=== PATIENT | female | born 1945 | race Caucasian/White ===

== ENCOUNTER 2020-02-07 10:41 | Outpatient (CLI) | payer MEDICARE, SELFPAY ==
--- NOTE | ~2020-02-07 | MM_ITS ---
EXAMINATION: MM screening vale BI w rhea HISTORY: Screening mammogram TECHNIQUE: Craniocaudal and mediolateral oblique 3-D tomosynthesis images were obtained and synthetic 2-D images were generated. CAD analysis was submitted and interpreted. COMPARISON: 01/22/2019, 12/30/2013 bilateral digital screening mammogram examinations BREAST PARENCHYMAL COMPOSITION: There are scattered areas of fibroglandular density. FINDINGS: Occasional bilateral benign calcifications. There is no evidence of suspicious mass, calcif ication, or architectural distortion to suggest malignancy in either breast. There has been no suspic ious interval change. IMPRESSION: 1. No mammographic evidence of malignancy. 2. Recommend routine screening mammography in one year. BI-RADS Category 1: Negative Reviewed, dictated and finalized at location A. CONSULTANT
== END 2020-02-07 10:42 | disposition home or self-care (01) ==
LOC: ANHIMG 10:45
PROVIDERS: PCP Family Medicine; Visit Provider Physician Assistant Medical
DX: Z12.31 Encounter for screening mammogram for malignant neoplasm of breast (principal)
CPT/HCPCS: 77063; 77067

== ENCOUNTER 2021-02-15 15:07 | Outpatient (CLI) | payer MEDICARE, SELFPAY ==
--- NOTE | ~2021-02-15 | MM_ITS ---
EXAMINATION: MM screening vale BI w rhea HISTORY: Screening TECHNIQUE: Craniocaudal and mediolateral oblique 3-D tomosynthesis images were obtained and synthetic 2-D images were generated. CAD analysis was submitted and interpreted. COMPARISON: Comparison to multiple prior studies sequentially, with oldest reviewed study dated 09/25. BREAST PARENCHYMAL COMPOSITION: Breast composed of scattered areas of fibroglandular density. FINDINGS: There is no evidence of suspicious mass, calcification, or architectural distortion to sugg est malignancy in either breast. There has been no suspicious interval change. IMPRESSION: 1. No mammographic evidence of malignancy. 2. Recommend routine screening mammography in one year. BI-RADS Category 1: Negative Reviewed, dictated and finalized at location A. APPLICATIONS ANALYST
== END 2021-02-15 15:08 | disposition home or self-care (01) ==
LOC: ANHIMG 15:10
PROVIDERS: PCP Family Medicine; Visit Provider Physician Assistant Medical
DX: Z12.31 Encounter for screening mammogram for malignant neoplasm of breast (principal)
CPT/HCPCS: 77063; 77067

== ENCOUNTER 2022-04-05 13:36 | Outpatient (CLI) | payer OTHER, SELFPAY ==
--- NOTE | ~2022-04-05 | XR_ITS ---
EXAMINATION: XR chest 2V DATE: 04/05/2022 14:45 INDICATION: Dyspnea on exertion TECHNIQUE: PA and lateral views of the chest were obtained. COMPARISON: Chest radiograph dated 05/23/[address] dated 08/19/2016 FINDINGS: Chronic linear opacities at the lateral left lower lung zone consistent with atelectasis/scarring. No new airspace opacities, pulmonary edema, pleural effusion or pneumothorax. The cardiomediastinal darvin houette is normal. Thoracic dextrocurvature with severe spondylosis. IMPRESSION: 1. Chronic linear atelectasis/scarring at the left lower lung zone. No acute cardiopulmonary disease. Reviewed, dictated and finalized at location B. OM STOP ATTACHER IMPRESSION: 1. Chronic linear atelectasis/scarring at the left lower lung zone. No acute ca rdiopulmonary disease.
--- NOTE | 2022-04-05 13:42 | ECHO_ITS ---
Patient Info Name: Jackeline Connolly Age: 77 years : 1945 Gender: Female Ht: 64 in Wt: 230 lbs BSA: 2.22 m2 HR: 61 bpm BP: 144 / 83 mmHg Technical Quality: Fair Exam Date: 04/05/2022 1:44 PM Exam Location: [facility] Patient Status: Outpatient Admit Date: 04/05/2022 Staff Ordering Physician: Henrry Upton PA-C Medical Scribe: Neyda Avendano RDCS Attending Provider: Henrry Upton PA-C Referring Physician: Won LEVY; Exam Type: CA echo doppler color flow Study Info Indications R06.02 - Shortness of breath Complete two-dimensional, color flow and Doppler transthoracic echocardiogram is performed. Summary 1. Complete two-dimensional, color flow and Doppler transthoracic echocardiogram is performed. 2. Left ventricular chamber dimension is normal. 3. Left ventricular systolic function is normal, estimated at 60-65%. 4. There is mild concentric increased left ventricular wall thickness. 5. The left ventricular diastolic function is grade I diastolic dysfunction. 6. E/e' 16 is elevated. 7. Global longitudinal strain is abnormal at -14.2%. 8. Left atrial chamber dimension is mildly enlarged. 9. There is mild aortic valve sclerosis. 10. The mitral valve has moderately calcified annulus. 11. No pulmonary hypertension, estimated pulmonary arterial systolic pressure is 18 mmHg. Left Ventricle E/e' 16 is elevated. Global longitudinal strain is abnormal at -14.2%. Left ventricular chamber dimension is normal. Left ventricular systolic function is normal, estimated at 60-65%. There is mild concentric increased left ventricular wall thickness. The left ventricular diastolic function is grade I diastolic dysfunction. Right Ventricle Right ventricular chamber dimension is normal. Right ventricular systolic function is normal. Left Atria Left atrial chamber dimension is mildly enlarged. Right Atria Right atrial chamber dimension is normal. Aortic Valve The aortic valve is trileaflet. There is mild aortic valve sclerosis. There is no aortic valve stenosis. There is no aortic valve regurgitation. Pulmonic Valve There is no pulmonic regurgitation. Mitral Valve The mitral valve has moderately calcified annulus. There is no mitral valve stenosis. There is no mitral valve regurgitation. Tricuspid Valve There is no tricuspid valve regurgitation. No pulmonary hypertension, estimated pulmonary arterial systolic pressure is 18 mmHg. Pericardium/Pleural There is no pericardial effusion. Inferior Vena Cava Normal inferior vena cava with >50% collapse upon inspiration consistent with normal right atrial pressure, 5 mmHg. Aorta The aortic root size at the sinus of Valsalva is normal. Left Ventricular Outflow Tract Name Value Normal LVOT 2D LVOT Diameter 2.0 cm LVOT Doppler LVOT Peak Gradient 3 mmHg LVOT Mean Gradient 2 mmHg LVOT VTI 18 cm LVOT VTI/AV VTI Ratio 0.8 LVOT Stroke Volume 55 ml LVOT CO
== END 2022-04-05 13:37 | disposition home or self-care (01) ==
PROVIDERS: PCP Family Medicine; Visit Provider Physician Assistant
DX: R06.02 Shortness of breath (principal)
CPT/HCPCS: 71046; 93306

== ENCOUNTER 2022-05-24 14:25 | Outpatient (CLI) | payer OTHER, SELFPAY ==
--- NOTE | ~2022-05-24 | MM_ITS ---
EXAMINATION: MM screening vale BI w rhea HISTORY: Screening mammogram TECHNIQUE: Craniocaudal and mediolateral oblique 3-D tomosynthesis images were obtained and synthetic 2-D images were generated. CAD analysis was submitted and interpreted. COMPARISON: , 02/07/2020, 01/20/2019 bilateral screening mammogram examinations BREAST PARENCHYMAL COMPOSITION: There are scattered areas of fibroglandular density. FINDINGS: There is no evidence of suspicious mass, calcification, or architectural distortion to sugg est malignancy in either breast. There has been no suspicious interval change. IMPRESSION: 1. No mammographic evidence of malignancy. 2. Recommend routine screening mammography in one year. BI-RADS Category 1: Negative Reviewed, dictated and finalized at location A.
== END 2022-05-24 14:26 | disposition home or self-care (01) ==
LOC: ANHIMG 14:29
PROVIDERS: PCP Family Medicine; Visit Provider Physician Assistant
DX: Z12.31 Encounter for screening mammogram for malignant neoplasm of breast (principal)
CPT/HCPCS: 77063; 77067

== ENCOUNTER 2022-06-17 21:27 | Emergency (ER) | payer OTHER, SELFPAY ==
--- NOTE | ~2022-06-17 | CT_ITS ---
EXAMINATION: CT abdomen pelvis wo con DATE: 06/17/2022 22:12 INDICATION: L flank pain TECHNIQUE: Computed tomography (CT) of the abdomen and pelvis was performed without intravenous contr ast. Automated exposure control and iterative reconstruction technique were employed. The dose-length product was 1351.40 mGy-cm. COMPARISON: 11/14/2006. FINDINGS: Lower thorax: Mitral and coronary artery calcification. Bibasilar scar/atelectasis. Liver: Normal. Biliary/Gallbladder: Cholelithiasis. No bile duct dilation. Pancreas: Mild atrophy. Spleen: Normal. Adrenals:Bilateral adrenal adenomas. Kidneys: Bilateral nonobstructing calculi. Small right midpole hemorrhagic or proteinaceous cyst. GI tract: Small hiatal hernia. No small or large bowel dilation. Appendix not visualized Diverticulos is without diverticulitis. Mesentery/Peritoneum: No ascites, mass, or free air. Retroperitoneum: No mass. Atherosclerotic abdominal aortic and/or arterial calcifications. Pelvis: Pelvic organs are within normal limits. Soft Tissues: Small uncomplicated fat-containing umbilical hernia. Bones: No acute osseous finding. IMPRESSION: No acute abdominopelvic process detected. Reviewed, dictated and finalized at location K.
[2022-06-17 21:29] VITALS: BP 153/79; PULSE 71; RESP 16; TEMP 36.5; O2SAT 100
[2022-06-17 21:48] LABS: Basophils Percent Auto 0.5 % (0.2-1.2); Eosinophils Absolute Auto 0.2 K/mm3 (0-0.3); Eosinophils Percent Auto 2.7 % (0-4.4); Hematocrit 40.3 % (37.0-47.0); Hemoglobin 13.4 g/dL (12.0-15.0); Immature Granulocyte Absolute 0.08 K/mm3 (0.00-0.031); Immature Granulocyte Percent A 0.9 % (0-0.5); Lymphocytes Absolute Auto 2.11 K/mm3 (0.9-3.2); Lymphocytes Percent Auto 23.9 % (18.3-44.2); Mean Corpuscular HGB Conc 33.3 g/dl (32-36); Mean Corpuscular Hemoglobin 29.6 pg (26-34); Mean Corpuscular Volume 89.2 fl (80-100); Mean Platelet Volume 9.5 fl (7.4-10.4); Monocytes Absolute Auto 0.4 K/mm3 (0.1-0.6); Monocytes Percent Auto 4.5 % (2.6-8.5); Neutrophils Percent Auto 67.5 % (45.5-73.1); Platelet Count Result 261 k/mm3 (150-375); Red Blood Count 4.52 M/mm3 (4.2-5.4); Red Cell Distribution Width 13.3 % (11.5-14.5); White Blood Count 8.8 K/mm3 (4.5-10.0)
[2022-06-17 22:00] LABS: Alanine Aminotransferase 26 U/L (6-35); Albumin Level 4.6 g/dL (3.5-5.1); Alkaline Phosphatase 86 U/L (38-126); Anion Gap 8 mmol/L (8-16); Aspartate Amino Transferase 31 U/L (14-36); Bilirubin,Total 0.5 mg/dL (0.2-1.3); Blood Urea Nitrogen 16 mg/dL (7-17); Calcium 9.6 mg/dL (8.4-10.2); Carbon Dioxide 25 mmol/L (22-30); Chloride 102 mmol/L (98-107); Estimated CRCL calculation 78 ml/min; Estimated Glomerular Filt Rate > 60; Glucose 135 mg/dL (65-110); Potassium 3.9 mmol/L (3.4-5.0); Sodium 135 mmol/L (137-145)
[2022-06-17 22:54] VITALS: BP 185/71; PULSE 88; RESP 20; TEMP 37.1; O2SAT 95
[2022-06-17 23:05] LABS: Appearance Urine Clear (Clear); Bilirubin Urine Negative (Negative); Blood Urine Negative (Negative); Color Urine Yellow (Yellow); Glucose Urine UA Negative (Negative); Ketones Urine Negative (Negative); Leukocyte Esterase Ur Negative LEU/UL (Negative); Nitrate Urine Negative (Negative); Protein Urine Negative (Negative); Specific Grav Ur 1.016 (1.001-1.035); Urobilinogen Urine 0.2 mg/dL (<2.0)
[2022-06-17 23:08] LABS: Add Urine Microscopic? NO
[2022-06-17] MEDS: ONDANSETRON INJ 4 MG/2 ML VIAL IV PUSH (23:20)
[2022-06-17] MEDS: MORPHINE SULFATE (*CRX) 4 MG/ML INJ IV PUSH (23:22)
[2022-06-17] MEDS: FAMOTIDINE 20 MG/2 ML VIAL IV PUSH (23:25)
[2022-06-17 23:54] VITALS: O2SAT 95
--- NOTE | 2022-06-17 23:54 | PC.NURSE ---
Patient began to sleep/nod off and her SPO2 was dropping to 88/89%. Nasal cannula was applied at 4L/min. Patient's SPO2 is now at 95%. Notified Dr. Gudino
[2022-06-18 00:01] VITALS: BP 158/67; PULSE 73; RESP 16; O2SAT 95
[2022-06-18 00:48] VITALS: BP 169/74; PULSE 74; RESP 24; O2SAT 98
--- NOTE | 2022-06-18 01:11 | PC.NURSE ---
Patient used to call light and advised that her pain and nausea was back. Notified Dr. Gudino.
[2022-06-18] MEDS: METOCLOPRAMIDE HCL INJ 10 MG/2 ML VIAL IV PUSH (01:15)
--- NOTE | 2022-06-18 01:56 | ED.NAVMDI ---
HPI - Nausea/Vomiting/Diarrhea General Chief complaint: Nausea/Vomiting/Diarrhea Stated complaint: flank pain/n/v/ Time Seen by Provider: 06/17/22 22:48 History of Present Illness HPI Narrative: After eating dinner today patient started having some bad pain to the left flank, with nausea and vomiting. No focal numbness or weakness to the legs, no personal family history of aneurysms or dissections, no chest pain or abdominal pain. No dysuria. No history of kidney stones Related Data Home Medications Medication Instructions Recorded Confirmed aspirin 81 mg tablet,delayed 81 mg PO DAILY 01/27/19 04/10/22 release cholecalciferol (vitamin D3) 25 1,000 unit PO DAILY 01/27/19 04/10/22 mcg (1,000 unit) capsule omeprazole magnesium 20 mg 20 mg PO DAILY 01/27/19 04/10/22 tablet,delayed release (Prilosec OTC) vit 1 cap PO DAILY 06/30/19 04/10/22 C,E,zinc,Zu-hyaiy-4-lutein-zeaxanthin 250 mg-2.5 mg-0.5 mg capsule hydrocodone 5 mg-acetaminophen 325 1 tablet PO Q8H PRN 07/19/20 04/10/22 mg tablet Allergies Allergy/AdvReac Type Severity Reaction Status Date / Time amlodipine Allergy Unknown lip Verified 06/17/22 21:28 swelling lisinopril Allergy Unknown cough Verified 06/17/22 21:28 spironolactone Allergy Unknown Lightheaded Verified 06/17/22 21:28 ness fluticasone [From Flonase] AdvReac Dry Mouth Verified 06/17/22 21:28 Review of Systems Review of Systems: CONST: No fever. HEENT: No sore throat C/V: No chest pain RESP: No cough GI: Reports abdominal pain, nausea, vomiting : No dysuria. M/S: Left low back pain SKIN: No rash. NEURO: [No headache or focal numbness or weakness] PSYCH: [No depression] [facility] Past Medical History Medical History Cerumen impaction Epistaxis Eustachian tube dysfunction Hepatitis C antibody test negative (~12/07/16) Impacted cerumen of left ear Left facial numbness Surgical History Surgical History Hx of colonoscopy hx polyps. 2016 normal/ repeat in5-7 years Family History Family History Sibling Hypertension Family history of elevated blood lipids Diabetes mellitus Mother Family history of cardiovascular disease Cerebrovascular accident Family history of malignant neoplasm of breast Father Acute myocardial infarction Family history of cardiovascular disease Family history of Parkinson's disease Social History Social History Smoking status: Never smoker Alcohol intake: current Substance use type: does not use Lack of Transportation: No Lack of Food: Never True Current Housing: I Have Housing Concerned About Future Housing: No Difficulty Paying Gas/Electric Bills: No Difficulty Paying for Meds: No Currently Unemployed: No Education: High School Diploma/GED Difficulty w/ Childcare or Family Care: No Gender identity (if verbalized by the patient): Female Exam Narrative: EXAMINATION OF ORGAN SYSTEMS/BODY AREAS: Constitutional: Vital signs per nursing GENERAL:[No acute distress, non-toxic appearing.] HEAD: Normal with no signs of head trauma. EYES: EOMI, conjunctiva normal ENT: Hearing grossly intact LUNGS: Nonlabored breathing. HEART: [Regular rate and rhythm] ABD: [Soft], [tender to palpation] to left lower back EXT: Normal range of motion, normal radial and DP pulses SKIN: [No rashes or lesions.] NEURO: [Alert and oriented x 3. No gross focal sensory or strength deficits.] PSYCH: Normal affect Course Vital Signs Vital signs: Vital Signs Temperature 97.7 F 06/17/22 21:29 Pulse Rate 71 06/17/22 21:29 Respiratory Rate 16 06/17/22 21:29 Blood Pressure 153/79 H 06/17/22 21:29 Pulse Oximetry 100 06/17/22 21:29 Oxygen Delivery Room Air 06/17/22 21:29 Temperature 97.6 F
[2022-06-18 02:11] VITALS: BP 166/75; PULSE 66; RESP 21; O2SAT 99
[2022-06-18 02:37] VITALS: BP 161/75; PULSE 99; RESP 14; TEMP 36.4; O2SAT 90
== END 2022-06-18 02:54 | disposition home or self-care (01) ==
PROVIDERS: Family Medicine; Emergency Provider Emergency Medicine; PCP Family Medicine
DX: M54.50 Low back pain, unspecified (principal); R11.2 Nausea with vomiting, unspecified
CPT/HCPCS: 36415; 74176; 80053; 81003; 85025; 96374; 96375; 99284; J2270; J2405; J2765

== ENCOUNTER 2022-08-06 14:46 | Outpatient (CLI) | payer OTHER, SELFPAY ==
[2022-08-06 16:05] LABS: Kit Draw Collected
== END 2022-08-06 14:47 | disposition home or self-care (01) ==
LOC: ANHGOSHLAB 14:47
PROVIDERS: PCP Family Medicine; Visit Provider Family Medicine
DX: E03.9 Hypothyroidism, unspecified (principal); E78.2 Mixed hyperlipidemia
CPT/HCPCS: 36415

== ENCOUNTER 2022-10-29 14:08 | Outpatient (CLI) | payer OTHER, SELFPAY ==
[2022-10-29 20:09] LABS: Thyroid Stimulating Hormone 0.365 uIU/mL (0.465-4.680)
== END 2022-10-29 14:09 | disposition home or self-care (01) ==
LOC: ANHGOSHLAB 14:09
PROVIDERS: PCP Family Medicine; Visit Provider Family Medicine
DX: E03.9 Hypothyroidism, unspecified (principal)
CPT/HCPCS: 36415; 84443

== ENCOUNTER → 2023-03-06 12:58 | Outpatient (CLI) | payer OTHER, SELFPAY ==
--- NOTE | ~2023-03-06 | MR_ITS ---
EXAMINATION: MR lumbar spine wo con DATE: 03/06/2023 13:37 INDICATION: Right-sided low back pain. TECHNIQUE: Magnetic resonance imaging (MRI) of the lumbar spine was performed without intravenous con trast. Sequences included sagittal T2-weighted FSE, sagittal T2-weighted FS FSE, sagittal T1-weighted FSE, and axial T2-weighted FSE. COMPARISON: Lumbar spine MRI 12/25/2016 FINDINGS: There is 37 degrees levoscoliosis of thoracolumbar spine. Vertebral body heights are normal . There is severely decreased disc height from T12-L1 through L5-S1 with interbody fusion at L1-L2 an d L2-L3. The distal spinal cord signal intensity is normal. The conus medullaris is at L1. The follow ing disc levels are specifically discussed: T12-L1: The disc is bulging and has an annular fissure. There is mild bilateral facet joint osteoarth ritis. There is mild bilateral neural foraminal stenosis. There is mild central canal stenosis. L1-L2: There is moderate bilateral facet joint osteoarthritis. There is moderate right and mild left neural foraminal stenosis. There is mild central canal stenosis. L2-L3: 07 There is severe bilateral facet joint osteoarthritis. There is moderate right and mild left neural foraminal stenosis. There is mild central canal stenosis. L3-L4: The disc is bulging and has an annular fissure. There is moderate bilateral facet joint osteoa rthritis. There is mild right and severe left neural foraminal stenosis. There is mild central canal stenosis. There is severe stenosis of left lateral recess. L4-L5: The disc is bulging and has an annular fissure. There is severe bilateral facet joint osteoart hritis. There is mild right and moderate left neural foraminal stenosis. There is mild central canal stenosis. L5-S1: The disc is bulging and has an annular fissure. There is severe bilateral facet joint osteoart hritis. There is moderate bilateral neural foraminal stenosis. There is mild central canal stenosis. IMPRESSION: 1. Severe lumbar spondylosis, stable from 12/25/2016. 2. Thoracolumbar levoscoliosis. Reviewed, dictated and finalized at location A. DENTIAL PLUMBER
== END ==
PROVIDERS: PCP Family Medicine; Visit Provider Nurse Practitioner Family
DX: M47.26 Other spondylosis with radiculopathy, lumbar region (principal)
CPT/HCPCS: 72148

== ENCOUNTER 2023-03-28 09:25 | Outpatient (CLI) | payer OTHER, SELFPAY ==
[2023-03-28 12:18] LABS: Alanine Aminotransferase 29 U/L (6-35); Alkaline Phosphatase 71 U/L (38-126); Anion Gap 6 mmol/L (8-16); Aspartate Amino Transferase 74 U/L (14-36); Bilirubin,Total 0.6 mg/dL (0.2-1.3); Blood Urea Nitrogen 18 mg/dL (7-17); Calcium 9.3 mg/dL (8.4-10.2); Carbon Dioxide 30 mmol/L (22-30); Chloride 105 mmol/L (98-107); Cholesterol 188 mg/dL (0-200); Estimated Glomerular Filt Rate > 60; Glucose 89 mg/dL (65-110); HDL Direct 50 mg/dL; Sodium 141 mmol/L (137-145); Triglycerides 176 mg/dL (<150)
[2023-03-28 12:23] LABS: Hemoglobin A1C 5.9 % (<5.7)
[2023-03-28 12:28] LABS: LDL Cholesterol Direct 103 mg/dL
== END 2023-03-28 09:26 | disposition home or self-care (01) ==
PROVIDERS: PCP Family Medicine; Visit Provider Family Medicine
DX: E03.9 Hypothyroidism, unspecified (principal); R73.03 Prediabetes; E78.2 Mixed hyperlipidemia
CPT/HCPCS: 36415; 80053; 80061; 83036; 84443

== ENCOUNTER 2023-06-03 15:12 | Outpatient (CLI) | payer OTHER, SELFPAY ==
[2023-06-03 19:25] LABS: Alanine Aminotransferase 23 U/L (6-35); Albumin Level 4.1 g/dL (3.5-5.1); Alkaline Phosphatase 77 U/L (38-126); Anion Gap 5 mmol/L (4-12); Aspartate Amino Transferase 46 U/L (14-36); Bilirubin,Total 0.7 mg/dL (0.2-1.3); Blood Urea Nitrogen 15 mg/dL (7-17); Calcium 10.1 mg/dL (8.4-10.2); Carbon Dioxide 30 mmol/L (22-30); Chloride 101 mmol/L (98-107); Estimated Glomerular Filt Rate > 60; Glucose 109 mg/dL (65-110); Potassium 3.9 mmol/L (3.4-5.0); Sodium 136 mmol/L (137-145)
[2023-06-03 20:00] LABS: Hepatitis B Surface Antigen Negative (Negative)
[2023-06-03 20:07] LABS: HAV RESULT Negative (Negative); Hepatitis B Core IgM Result Negative (Negative)
[2023-06-03 20:18] LABS: Hepatitis C Virus Antibody Negative (Negative)
== END 2023-06-03 15:13 | disposition home or self-care (01) ==
LOC: ANHGOSHLAB 15:14
PROVIDERS: PCP Family Medicine; Visit Provider Physician Assistant
DX: R53.83 Other fatigue (principal); R74.8 Abnormal levels of other serum enzymes; I10 Essential (primary) hypertension
CPT/HCPCS: 36415; 80048; 80074; 80076; 82728

== ENCOUNTER 2023-06-27 10:10 | Outpatient (CLI) | payer OTHER, SELFPAY ==
--- NOTE | ~2023-06-27 | MM_ITS ---
EXAMINATION: MM screening vale BI w rhea HISTORY: Screening TECHNIQUE: Craniocaudal and mediolateral oblique 3-D tomosynthesis images were obtained and synthetic 2-D images were generated. CAD analysis was submitted and interpreted. COMPARISON: Comparison to multiple prior studies sequentially, with oldest reviewed study dated 01/10. BREAST PARENCHYMAL COMPOSITION: Not dense: There are scattered areas of fibroglandular density. FINDINGS: There is no evidence of suspicious mass, calcification, or architectural distortion to sugg est malignancy in either breast. There has been no suspicious interval change. IMPRESSION: 1. No mammographic evidence of malignancy. 2. Recommend routine screening mammography in one year. BI-RADS Category 1: Negative Reviewed, dictated and finalized at location B.
--- NOTE | ~2023-06-27 | DEXA_ITS ---
Bone Density Report Name: LUKE FRANKLIN Age: 78 Sex: Female Ethnicity: White Date of : 1945 Indication: postmenopausal; screening for osteoporosis; height loss; inflammatory bowel disease; history of glucocorticoids; cancer; Referring Provider: DIMAS KIRKLAND Study: Bone densitometry was performed. Exam Date: June 27, 2023 Accession number: [id number] Bone Density: Region BMD T-score Z-score Classification AP Spine(L2, L3, L4) 1.234 1.4 4.1 Normal Femoral Neck (Left) 0.747 -0.9 1.3 Normal Total Hip (Left) 1.048 0.9 2.9 Normal Femoral Neck (Right) 0.785 -0.6 1.7 Normal Total Hip (Right) 0.973 0.3 2.3 Normal Total Hip Mean 1.011 0.6 2.6 Normal World Health Organization criteria for BMD impression classify patients as: Normal (T-score at or above -1.0), Osteopenia (T-score between -1.0 and -2.5), or Osteoporosis (T-score at or below -2.5). 10-year Fracture Risk: FRAX not reported because: All T-scores for Spine Total, Hip Total, Femoral Neck at or above -1.0 Previous Exams: Region Exam Age BMD T-score BMD Change BMD Change Date g/cm2 vs Baseline vs Previous AP Spine (L2-L4) 06/27/2023 78 1.234 1.4 -0.055 (-4.2%) -0.055 (-4.2%) 01/22/2019 73 1.288 1.9 Total Hip(Left) 06/27/2023 78 1.048 0.9 -0.040 (-3.6%) -0.040 (-3.6%) 01/22/2019 73 1.087 1.2 Total Hip(Right) 06/27/2023 78 0.973 0.3 -0.063 (-6.1%) -0.063 (-6.1%) 01/22/2019 73 1.036 0.8 *Denotes significance at 95% confidence level, LSC for AP Spine = 0.022 g/cm2, LSC for Total Hip = 0.027 g/cm2 Clinical Information Provided by Patient: Has taken Glucocorticoids Has used the following medications: MULTI Has the following medical conditions: Cancer, Inflammatory bowel diseases Patient maximum height was 66 Menopause Age: 49 No regular weight bearing exercise Drinks caffeinated beverages Onset of menses at age 14 Number of children 3 Impression: The patient has normal bone mass. The patient has risk factors, including: history of glucocorticoid therapy. The BMD for the AP Spine (L2-L4) decreased, changing by -4.2% since the last DXA exam. The BMD for the Total Hip(Left) decreased, changing by -3.6% since the last DXA exam. The BMD for the Total Hip(Right) decreased, changing by -6.1% since the last DXA exam. Discussion: BONE DENSITY IS ABOVE THE MINIMUM DESIRABLE LEVEL AT ALL SKELETAL SITES TESTED. This patient?s bone mineral density is above the minimum desirable level (T-score -1.0 or better) at all sites measured. The patient should follow a healthful lifestyle (good nutrition with adequate calcium and vitamin D, and appropriate weight-bearing exercise). Follow-Up: Consider repeating this study in 3 to 4 years to reassess this patient's status, or sooner if there is some new clinical indication. Reported by: VIANEY on 06/27/2023 11:05:00 AM. Reviewed, dictated and finalized at location AFrancesca [facility] HOSPITALFernanda
== END 2023-06-27 10:11 | disposition home or self-care (01) ==
LOC: ANHIMG 10:14
PROVIDERS: PCP Family Medicine; Visit Provider Family Medicine
DX: Z12.31 Encounter for screening mammogram for malignant neoplasm of breast (principal); Z78.0 Asymptomatic menopausal state
CPT/HCPCS: 77063; 77067; 77080

== ENCOUNTER 2023-12-11 09:41 | Outpatient (CLI) | payer OTHER, SELFPAY ==
[2023-12-11 19:06] LABS: Cholesterol 192 mg/dL (0-200); HDL Direct 41 mg/dL; Triglycerides 238 mg/dL (<150)
[2023-12-11 19:17] LABS: LDL Cholesterol Direct 91 mg/dL
== END 2023-12-11 09:42 | disposition home or self-care (01) ==
PROVIDERS: PCP Family Medicine; Visit Provider Family Medicine
DX: R73.03 Prediabetes (principal); E03.9 Hypothyroidism, unspecified
CPT/HCPCS: 36415; 80061; 83036

== ENCOUNTER 2024-06-09 14:21 | Outpatient (CLI) | payer OTHER, SELFPAY ==
--- NOTE | ~2024-06-09 | US_ITS ---
EXAMINATION: US pelvic complete INDICATION: Lower abdomen pain Comparison:CT dated 06/17/2022 TECHNIQUE: Multiple endovaginal sonographic images of the pelvis performed. FINDINGS: The uterus measures 6.3 x 4.7 x 4 cm. There are echogenic foci within the myometrium, consi stent with calcifications. The endometrium is not clearly delineated for measurement. The ovaries are not visualized, likely atrophic. There is no free fluid in the pelvis. There are no abnormal masses seen on either side. IMPRESSION: 1. Unremarkable limited pelvic ultrasound. Endometrium not clearly visualized. Reviewed, dictated and finalized at location A.
== END 2024-06-09 14:22 | disposition home or self-care (01) ==
LOC: GOSHIMG 14:22
PROVIDERS: PCP Family Medicine; Visit Provider Nurse Practitioner Family
DX: R10.30 Lower abdominal pain, unspecified (principal)
CPT/HCPCS: 76856

== ENCOUNTER 2024-07-14 14:15 | Emergency (ER) | payer OTHER, SELFPAY ==
--- NOTE | ~2024-07-14 | XR_ITS ---
XR ankle RT min 3V Ordering provider: Edda Bartlett APRN History: . Fell today, pain lateral Rt ankle, Rt knee . Comparison: August 22, 2003 FINDINGS: BONES: Nondisplaced fracture of the lateral malleolus is noted. Fracture of the medial malleolus is a lso seen. Displaced fragment is seen in the medial malleolus area. JOINT SPACES: Normal. SOFT TISSUES: Soft tissue swelling over the medial malleolus is seen. Air is also seen in the subcuta neous tissues. Calcaneal spur. IMPRESSION: Bimalleolar fracture. Reviewed, dictated and finalized at location A. IMPRESSION: Bimalleolar fracture.
--- NOTE | ~2024-07-14 | XR_ITS ---
EXAMINATION: [id number] DATE: 07/14/2024 15:12 INDICATION: Right knee pain post fall TECHNIQUE: AP and crosstable lateral views of the right knee were obtained. COMPARISON: None. FINDINGS: Right total knee arthroplasty with patellar resurfacing which are in near-anatomic alignment. There i s increased lucency with thin corticated margins suggesting this is chronic posterior to the trochlea r flange of the femoral component. No fracture. Small right knee joint effusion without layering lipo hemarthrosis. Moderate sized enthesophyte at the patellar insertion of the distal quadriceps tendon. IMPRESSION: 1. Likely chronic increased lucency posterior to the trochlear flange of the femoral component of a r ight total knee arthroplasty which could be seen due to stress shielding or loosening. Recommend munir elation with any prior outside imaging. No acute osseous abnormality. 2. Small right knee joint effusion without layering lipohemarthrosis to suggest occult fracture. Reviewed, dictated and finalized at location A. IMPRESSION: 1. Likely chronic increased lucency posterior to the trochlear flange of the fe moral component of a right total knee arthroplasty which could be seen due to s tress shielding or loosening. Recommend correlation with any prior outside imag ing. No acute osseous abnormality. 2. Small right knee joint effusion without layering lipohemarthrosis to suggest occult fracture.
[2024-07-14 14:35] VITALS: BP 162/82; PULSE 84; RESP 16; TEMP 37; O2SAT 96
--- NOTE | 2024-07-14 14:43 | ED.LOWEXIN ---
HPI - Extremity Injury (Lower) General Chief Complaint: Extremity Injury, Lower Stated Complaint: R KNEE/R ANKLE INJURY Source: patient Mode of arrival: wheelchair Limitations: no limitations History of Present Illness HPI Narrative: Patient is an 79-year-old female who presents to the clinic with right ankle pain. She was getting into her car in a parking lot, lost her balance and fell, landing on her right ankle and right knee. She states that she is not able to bear weight or move her ankle. 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 Denies any numbness or tingling. Related Data Home Medications ?Medication ?Instructions ?Recorded ?Confirmed ?Last Taken ?Type aspirin 81 mg tablet,delayed 81 mg PO DAILY 01/27/19 07/14/24 Unknown History release cholecalciferol (vitamin D3) 25 1,000 unit PO DAILY 01/27/19 07/14/24 Unknown History mcg (1,000 unit) capsule hydrocodone 5 mg-acetaminophen 325 1 tablet PO Q8H 07/19/20 07/14/24 Unknown History mg tablet omeprazole magnesium 20 mg 20 mg PO .QOD 01/16/23 07/14/24 Unknown History tablet,delayed release (Prilosec OTC) vitamins A,C,Q-zgtg-vwygpr 4,296 1 cap PO DAILY 01/16/23 07/14/24 Unknown History mcg-226 mg-90 mg capsule (PreserVision AREDS) Allergies Allergy/AdvReac Type Severity Reaction Status Date / Time amlodipine Allergy Unknown lip Verified 07/14/24 14:16 swelling lisinopril Allergy Unknown cough Verified 07/14/24 14:16 spironolactone Allergy Unknown Lightheaded Verified 07/14/24 14:16 ness fluticasone (From Flonase) AdvReac Dry Mouth Verified 07/14/24 14:16 Review of Systems Review of Systems: CONSTITUTIONAL: Denies body aches, fever, chillsEYES: Denies visual changes ENT: Denies rhinorrhea, congestion CARDIOVASCULAR: Denies chest pain, palpitations, or edema. RESPIRATORY: Denies cough or dyspnea. SKIN: Denies rash, itching, or wounds. MUSCULOSKELETAL: reports right ankle and right knee pain. NEUROLOGIC: Denies headache, numbness, tingling, or weakness. All systems reviewed & are unremarkable except as noted in HPI and below PMFSH Past Medical History Medical History Immunization due Sensation of fullness in left ear Right-sided epistaxis Impacted cerumen of left ear Knee pain Fatigue Epistaxis Cerumen impaction Impacted cerumen of left ear Eustachian tube dysfunction Hepatitis C antibody test negative (~12/07/16) Left facial numbness Surgical History Surgical History Hx of colonoscopy hx polyps. 2016 normal/ repeat in5-7 years Family History Family History Sibling Hypertension Family history of elevated blood lipids Diabetes mellitus Mother Family history of cardiovascular disease Cerebrovascular accident Family history of malignant neoplasm of breast Father Acute myocardial infarction Family history of cardiovascular disease Family history of Parkinson's disease Social History Social History Smoking status: Never smoker Alcohol intake: current Drinks per week: 2 Substance use: never Substance use type: does not use Do You Feel Safe in your Home?: Yes Lack of Transportation: No Lack of Food: Never True Current Housing: I Have Housing Concerned About Future Housing: No Difficulty Paying Gas/Electric Bills: No Difficulty Paying for Meds: No Currently Unemployed: No Education: High School Diploma/GED Difficulty w/ Childcare or Family Care: No Gender identity (if verbalized by the patient): Female Comments At time of signature, I have reviewed and agree with nursing past medical, surgical, social and family history unless otherwise noted. Please see nursing chart for further information. There is no relevant family history pertinent to the presenting complaint. Exam Narrative: MUSCULOSKELETAL EXAM GENERAL: Well-appearing, well-nourished, and in no acute distress. HEAD: Normocephalic, atraumatic. NECK: Supple. CHEST: Speaks in full sentences. No respiratory distress. HEART: Regular rate and rhythm. Normal and equal peripheral pulses. EXTREMITIES: Right ankle has decreased strength but normal sensation, decreased range of motion with flexion/extension and endorses pain with movement. Edema and ecchymosis noted, No point tenderness. Small puncture abrasion to right medial ankle, no skin tenting or obvious deformity; alignment normal, pulse palpable and equal bilaterally, skin warm, dry, pink. Capillary refill less than 3 seconds. Distal sensation intact. Right knee tender with palpation, decreased range of motion, but normal sensation. SKIN: Warm, dry, no rash. NEURO: Alert and oriented x3. PSYCH: Normal mood and affect Course Course Level of Care: Express Care Visit Vital Signs Vital signs: Vital Signs Temperature 98.6 F 07/14/24 14:35 Pulse Rate 84 07/14/24 14:35 Respiratory Rate 16 07/14/24 14:35 Blood Pressure 162/82 H 07/14/24 14:35 Pulse Oximetry 96 07/14/24 14:35 Temperature 98.6 F 07/14/24 14:35 Pulse Rate 84 07/14/24 14:35 Respiratory Rate 16 07/14/24 14:35 Blood Pressure 162/82 H 07/14/24 14:35 Pulse Oximetry 96 07/14/24 14:35 Reviewed. Transfer Transfered to: [facility] comments: Pt is agreeable to transfer. Requests transfer to [facility] via private vehicle. Risks of transportation reviewed with pt including injury, worsening of condition and . will be driving pt; Report called to hospital, spoke with MD Marshall, accepting physician. Pt is in stable condition at time of transfer. Advised to remain NPO and go directly to the hospital. MDM - Extremity Injury (Lower) MDM Narrative Medical decision making narrative: Discussed physical exam findings and xray. Bimalleolar fracture to right ankle. Advised to go to ER. Patient agreeable. Differential Diagnosis Differential diagnosis: Likely ankle sprain and strain, ankle fracture and other Imaging Data Radiologist's impression: ITS Impressions Ankle X-Ray 07/14/24 15:18 IMPRESSION: Bimalleolar fracture. Knee X-Ray 07/14/24 15:19 IMPRESSION: 1. Likely chronic increased lucency posterior to the trochlear flange of the femoral component of a right total knee arthroplasty which could be seen due to stress shielding or loosening. Recommend correlation with any prior outside imaging. No acute osseous abnormality. 2. Small right knee joint effusion without layering lipohemarthrosis to suggest occult fracture. Critical Care Time Critical Care Time Critical Care Time: No Discharge Plan Discharge Clinical Impression: Ankle fracture, right Qualifiers: Encounter type: initial encounter Fracture type: closed Qualified Code(s): S82.891A - Other fracture of right lower leg, initial encounter for closed fracture Patient Disposition: Acute Care Hospital Condition: Stable Patient Language: Kyrgyz Prescriptions: No Action aspirin 81 mg tablet,delayed release (DR/EC) 81 mg PO DAILY cholecalciferol (vitamin D3) 1,000 unit capsule 1,000 unit PO DAILY Prilosec OTC 20 mg tablet,delayed release (DR/EC) 20 mg PO .QOD PreserVision AREDS 4,296 mcg-226 mg-90 mg capsule 1 cap PO DAILY hydrocodone-acetaminophen 5-325 mg tablet 1 tablet PO Q8H trazodone 50 mg tablet See Rx Instructions .ROUTE .COMPLEX Qty: 90 3RF Dose Instruction: TAKE 1 TABLET BY MOUTH DAILY Rx Instructions: TAKE 1 TABLET BY MOUTH DAILY atorvastatin 40 mg tablet 40 mg PO DAILY Qty: 90 3RF levothyroxine 137 mcg tablet 137 mcg PO DAILY Qty: 90 1RF Rx Instructions: Take 1 tablet by mouth daily metoprolol succinate 50 mg tablet extended release 24 hr 50 mg PO DAILY Qty: 90 1RF Follow-up/Referrals: Andrew Medeiros MD [Physician] - Sharri Clay MD [Primary Care Provider] -
== END 2024-07-14 16:15 | disposition short-term general hospital (02) ==
PROVIDERS: PCP Family Medicine
DX: S82.841A Displaced bimalleolar fracture of right lower leg, initial encounter for closed fracture (principal); V48.4XXA Person boarding or alighting a car injured in noncollision transport accident, initial encounter; M25.561 Pain in right knee; Z79.82 Long term (current) use of aspirin; Z96.653 Presence of artificial knee joint, bilateral
CPT/HCPCS: 29515; 73560; 73610; 99214; G0463

== ENCOUNTER 2024-07-14 17:09 | Inpatient (IN) | payer OTHER, SELFPAY ==
--- NOTE | ~2024-07-14 | XR_ITS ---
EXAMINATION: XR surgery orthopedic DATE: 07/16/2024 12:00 INDICATION: ORIF right ankle fracture TECHNIQUE: 3 fluoroscopic images of the right ankle were obtained during procedure performed by Dr. Rhett danielson. Radiologist was not present for the imaging or procedure. The amount of fluoroscopy time used during this procedure was 12.5 minutes. Total DAP was 7.781 Gycm^2. COMPARISON: None. FINDINGS: Open reduction internal fixation of fracture of the distal metaphyseal region of the right fibula wit h retrograde intramedullary liliana with pair of distal interlocking screws at the lateral malleolus. Sma ll minimally displaced likely avulsion fracture of the anterolateral margin of the of the tibial plaf ond and. There are metallic buttons at either side of a pair of lucent tunnels for tightrope type syn desmotic fixation extending across the metaphyseal regions of the distal tibia and fibula. Alignment appears near-anatomic. No new fractures identified. IMPRESSION: 1. Fluoroscopy utilized during internal fixation of a distal right fibular fracture which is in near- anatomic alignment. See procedure note for further detail. Reviewed, dictated and finalized at location A. IMPRESSION: 1. Fluoroscopy utilized during internal fixation of a distal right fibular frac ture which is in near-anatomic alignment. See procedure note for further detail .
--- OUTSIDE RECORDS SUMMARY | 2024-07-14 17:12 | XMS_ITS | Continuity of Care Document ---
Author Organization [facility] Address [address] [place] [address] [address] [place] [address] Phone Care Team Providers Care Laminator Name Role Phone Ross OD, Ernie Unavailable Unavailable Procedures Procedure Date Eye Exam & Treatment Refraction Eye Exam & Treatment Refraction Advance Directives Directive Yes / No Effective Date File Name No Information Encounters Encounter Description Practice Location Reason(s) For Visit Diagnoses Date Provider Providers Copied on Encounter [facility], [address] [place] [address] [address], [place], [place], [id number], tel:[phone] [facility] No Information Oct-2 2-200 9 Ross OD Ernie. [address] , [address], [place], [place], [place], [place]. tel:[phone] [facility], [address] [place] [address] [address], [place], [place], [id number], tel:[phone] [facility] No Information Oct-1 6-200 8 Ross OD Ernie. [address] , [address], [place], [address], [place]. tel:[phone] Family History Family Member Type Diagnosis Age At Onset No Information Payers Payer name Insurance type Covered constitution party ID Authoriza tiorlin(s) [employer] Plan CI [id number] Social History Type Description Quantity Date Captured [...]
--- OUTSIDE RECORDS SUMMARY | 2024-07-14 17:12 | XMS_ITS | Clinical Summary ---
Author Organization [facility] Address [address], [address] [address] Phone Care Team Providers Care Bridge Inspector Name Role Phone Carlos Alberto Clay MD Primary Care Provider [phone] Ernie Saba DO Unavailable [phone] Immunizations Immunization Administration Dates Next Due Covid-19, Mrna, Lnp-s, Pf, 30 Mcg/0.3 Ml Dose (P fizer) 05/08/2020,04/14/2020 Social History Tobacco Use Types Packs/Day Years Used Date Smoking Tobacco: Never Assessed Comments Unknown Sex and Gender Information Value Date Recorded Sex Assigned at Not on file Legal Sex Female 10:00 PM CDT Gender Identity Not on file Sexual Orientation Not on file Plan of Treatment Health Maintenance Due Date Last Done Comments DEXA Bone Density 1945 Hepatitis C Virus (HCV) Screening 1945 TdaP Immunization 1945 Pneumococcal Immunization (5 0+ years) (1 of 1 - PCV) 1994 Respiratory Syncytial Virus (RSV) Immunization (Adult) (1 - 1-dose 75+ series) 2019 Influenza Immunization (#1) 2023 12/21/2019 SARS-COV-2 Immunization ( season) 2023 12/03/2020, 05/08/2020, 04/14/2020 Colonoscopy High Risk Discontinued 03/30/2015 Colonoscopy Discontinued 03/30/2015 Colorectal Cancer Screening Discontinued DTaP/Tdap/Td Immunization Discontinued 06/18/2018 Zoster Immunization Completed 10/19/2018, 08/10/2018 Cologuard Discontinued Hepatitis B Immunization Aged Out No longer eligible based on patient's age to complete this topic Immunochemical Fecal Occult Blood Discontinued Meningococcal Immunization (ACWY) Aged Out No longer eligible based on patient's age to complete this topic Rotavirus Immunization Aged Out No lo nger eligible based on patient's age to complete this topic Procedures Procedure Name Priority Date/Time Associated Diagnosis Comments COLONOSCOPY Routine 03/30/2015 from Last 3 Months or Most Recently Relevant to Health Maintenance Results * COLONOSCOPY (03/30/2015) us Not On File Provider PROCEDURE/MINOR SURGICAL OR DERABLES Final Result from Last 3 Months or Most Recently Relevant to Health Maintenance Insurance MEDICARE [facility] Care Teams Bridge Inspector Relationship Specialty Start Date End Date Carlos Alberto Clay MD [address] [place] [address] [address] [place] [address] PCP - General Family Medicine 03/30/15 Ernie Saba DO [address] [place] [address] [phone] Gastroenterology 03/30/15
--- OUTSIDE RECORDS SUMMARY | 2024-07-14 17:12 | XMS_ITS | Clinical Summary ---
Author Organization [facility] Address [address] [place] [address] Care Team Providers Care Heel Nailing Machine Operator Name Role Phone Unavailable Primary Care Provider Unavailabl e Social History Tobacco Use Types Packs/Day Years Used Date Smoking Tobacco: Never Assessed Comments Unknown Sex and Gender Information Value Date Recorded Sex Assigned at Not on file Legal Sex Female 6:59 PM CDT Gender Identity Not on file Sexual Orientation Not on file Plan of Treatment Health Maintenance Due Date Last Done Comments DTaP, Tdap and Td Vaccines ( 1 - Tdap) 1964 Pneumococcal Vaccine: 50+ Ye ars (1 of 1 - PCV) 1994 Zoster Vaccines (1 of 2) 1994 Dexa Scan (General) 2009 RSV Immunization or 60+ Years (1 - 1-dose 75+ series) 2019 COVID-19 Vaccine (2023-2 5 season) 2023 Meningococcal B Vaccine Aged Out No l onger eligible based on patient's age to complete this topic Meningococcal Vaccine Aged Out No alvaro tobias eligible based on patient's age to complete this topic RSV Immunizations Under 20 Months Aged Out No longer eligible based on patient's age to complete this topic
[2024-07-14 17:30] VITALS: BP 185/70; PULSE 81; RESP 17; TEMP 36.6; O2SAT 99
--- NOTE | 2024-07-14 18:11 | ED_ITS ---
HPI - Extremity Injury (Lower) General Chief Complaint: Extremity Injury, Lower <Salena Bridges PA-C - Last Filed: 07/16/24 10:28> Stated Complaint: R. ankle fracture <Salena Bridges PA-C - Last Filed: 07/16/24 10:28> Time Seen by Provider: 07/14/24 18:11 <Salena Bridges PA-C - Last Filed: 07/16/24 10:28> Focused HPI: This is a 79 year old female that presents to the ER for right ankle pain. Reports she went to sit in the car and dropped some papers she was holding. Reports she lost her balance and her right ankle went under the car. Reports right knee and ankle pain. She did not hit her head or lose consciousness. She had imaging at urgent care which showed an ankle fracture. She was sent to the ER for further evaluation. GENERAL: Well-appearing, well-nourished, and in no acute distress. HEAD: Normocephalic, atraumatic. CHEST: Clear to auscultation. No respiratory distress. HEART: Regular rate and rhythm. EXTREMITIES: Right ankle in posterior short leg splint NEURO: Alert and oriented x3. Patient screened in triage and initial orders placed. Additional care and disposition to be based upon diagnostic testing and treatment. <Salena Bridges PA-C - Last Filed: 07/16/24 10:28> History of Present Illness HPI Narrative: agree wuith MSE <Melissa Gudino MD - Last Filed: 07/14/24 23:06> Related Data Home Medications: Home Medications Medication Instructions Recorded Confirmed Last Taken Type aspirin 81 mg tablet,delayed 81 mg PO DAILY 01/27/19 07/15/24 07/14/24 History release hydrocodone 5 mg-acetaminophen 325 1 tablet PO Q8H 07/19/20 07/15/24 07/14/24 History mg tablet omeprazole magnesium 20 mg 20 mg PO .QOD 01/16/23 07/15/24 07/14/24 History tablet,delayed release (Prilosec OTC) vitamins A,C,S-qrfm-evtqje 4,296 1 cap PO DAILY 01/16/23 07/15/24 07/14/24 History mcg-226 mg-90 mg capsule (PreserVision AREDS) trazodone 50 mg tablet 50 mg PO QHS 07/15/24 07/15/24 07/14/24 History <RIVKA Rizvi Last Filed: 07/16/24 10:28> Allergies/Adverse Reactions: Allergies Allergy/AdvReac Type Severity Reaction Status Date / Time amlodipine Allergy Unknown lip Verified 07/16/24 09:13 swelling lisinopril Allergy Unknown cough Verified 07/16/24 09:13 spironolactone Allergy Unknown Lightheaded Verified 07/16/24 09:13 ness fluticasone (From Flonase) AdvReac Dry Mouth Verified 07/16/24 09:13 <RIVKA Rizvi Last Filed: 07/16/24 10:28> Review of Systems 2 Review of Systems: All systems reviewed & are unremarkable except as noted in HPI and below <RIVKA Rizvi Last Filed: 07/16/24 10:28> [facility] Past Medical History Medical History: Medical History Fracture of ankle, bimalleolar, right, closed Immunization due Sensation of fullness in left ear Right-sided epistaxis Impacted cerumen of left ear Knee pain Fatigue Epistaxis Cerumen impaction Impacted cerumen of left ear Eustachian tube dysfunction Hepatitis C antibody test negative (~12/07/16) Left facial numbness <RIVKA Rizvi Last Filed: 07/16/24 10:28> Surgical History Surgical History: Surgical History Hx of colonoscopy hx polyps. 2016 normal/ repeat in5-7 years <RIVKA Rizvi Last Filed: 07/16/24 10:28> Family History Family History: Family History Sibling Hypertension Family history of elevated blood lipids Diabetes mellitus Mother Family history of cardiovascular disease Cerebrovascular accident Family history of malignant neoplasm of breast Father Acute myocardial infarction Family history of cardiovascular disease Family history of Parkinson's disease <RIVKA Rizvi Last Filed: 07/16/24 10:28> Social History Social History: Social History Smoking status: Never smoker Alcohol intake: current Drinks per week: 2 Substance use: never Substance use type: does not use Do You Feel Safe in your Home?: Yes Lack of Transportation: No Lack of Food: Never True Current Housing: I Have Housing Concerned About Future Housing: No Difficulty Paying Gas/Electric Bills: No Difficulty Paying for Meds: No Currently Unemployed: No Education: High School Diploma/GED Difficulty w/ Childcare or Family Care: No Gender identity (if verbalized by the patient): Female Spiritual care concerns: No <Saelna Bridges PA-C - Last Filed: 07/16/24 10:28> Exam 2 Narrative: EXAMINATION OF ORGAN SYSTEMS/BODY AREAS: Constitutional: Vital signs per nursing GENERAL:[No acute distress, non-toxic appearing.] HEAD: Normal with no signs of head trauma. EYES: EOMI, conjunctiva normal ENT: Hearing grossly intact LUNGS: Nonlabored breathing. HEART: [Regular rate and rhythm], good cap refill to toes ABD: [Soft], [nontender to palpation] EXT: R ankle in splint SKIN: Tiny puncture wound to R medial ankle NEURO: [Alert and oriented x 3. No gross focal sensory or strength deficits.] PSYCH: Normal affect <Melissa Gudino MD - Last Filed: 07/14/24 23:06> Course Vital Signs Vital signs: Vital Signs Temperature 97.9 F 07/14/24 17:30 Pulse Rate 81 07/14/24 17:30 Respiratory Rate 17 07/14/24 17:30 Blood Pressure 185/70 H 07/14/24 17:30 Pulse Oximetry 99 07/14/24 17:30 Oxygen Delivery Room Air 07/14/24 17:30 Temperature 98 F 07/16/24 09:14 Pulse Rate 79 07/16/24 09:16 Respiratory Rate 16 07/16/24 05:45 Blood Pressure 179/68 H 07/16/24 09:14 Pulse Oximetry 96 07/16/24 09:14 Oxygen Delivery Room Air 07/16/24 09:14 <Salena Bridges PA-C - Last Filed: 07/16/24 10:28> Vital Signs Temperature 97.9 F 07/14/24 17:30 Pulse Rate 81 07/14/24 17:30 Respiratory Rate 17 07/14/24 17:30 Blood Pressure 185/70 H 07/14/24 17:30 Pulse Oximetry 99 07/14/24 17:30 Oxygen Delivery Room Air 07/14/24 17:30 Temperature 98 F 07/16/24 09:14 Pulse Rate 79 07/16/24 09:16 Respiratory Rate 16 07/16/24 05:45 Blood Pressure 179/68 H 07/16/24 09:14 Pulse Oximetry 96 07/16/24 09:14 Oxygen Delivery Room Air 07/16/24 09:14 <Melissa Gudino MD - Last Filed: 07/14/24 23:06> Procedures Orthopedic Splinting/Casting Injury #1: Splinting/Casting Date: 07/14/24 <Melissa Gudino MD - Last Filed: 07/14/24 23:06> Splinting/Casting Time: 21:44 <Melissa Gudino MD - Last Filed: 07/14/24 23:06> Side: right <Melissa Gudino MD - Last Filed: 07/14/24 23:06> Lower Extremity Injury Location: ankle <Melissa Gudino MD - Last Filed: 07/14/24 23:06> Lower Extremity Immobilizer: stirrup splint <Melissa Gudino MD - Last Filed: 07/14/24 23:06> Pre-Procedure Neuro Vascular Exam: normal <Melissa Gudino MD - Last Filed: 07/14/24 23:06> Post-Procedure Neuro Vascular Exam: normal <Melissa Gudino MD - Last Filed: 07/14/24 23:06> MDM - Extremity Injury (Lower) MDM Narrative Medical decision making narrative: 79F p/w R ankle fx, posterior splint placed at Urgent Care. I did unwrap the splint and dressings and saw that there was a tiny punctate wound medial malleolus, does not appear to be deep, I did replace the dressing with some antibiotic ointment, we wrapped the leg, and she is splinted with a posterior leg splint as well as a sugar-tong splint. Patient tolerated this well. She is unable to get around at home by herself as she lives independently and cannot use crutches, so plan for admission. Discussed this case with the orthopedic surgeon, including that there is a fracture with a cut over the medial malleolus, and I will start her on Ancef. He did review the images personally. Discussed with hospitalist who agrees to admission. <Melissa Gudino MD - Last Filed: 07/14/24 23:06> Lab Data Result diagrams: 07/16/24 05:10 07/16/24 05:10 <Salena Bridges PA-C - Last Filed: 07/16/24 10:28> Labs: Lab Results 07/14/24 Range/Units 21:29 WBC 9.4 (4.5-10.0) K/mm3 RBC 4.56 (4.2-5.4) M/mm3 Hgb 13.3 (12.0-15.0) g/dL Hct 41.3 (37.0-47.0) % MCV 90.6 (80-100) fl MCH 29.2 (26-34) pg MCHC 32.2 (32-36) g/dl RDW 13.3 (11.5-14.5) % Plt Count 230 (150-375) k/mm3 MPV 10.0 (7.4-10.4) fl Immature Gran % (Auto) 0.3 (0-0.5) % Neut % (Auto) 66.6 (45.5-73.1) % Lymph % (Auto) 23.4 (18.3-44.2) % [place] % (Auto) 7.1 (2.6-8.5) % Eos % (Auto) 2.3 (0-4.4) % Baso % (Auto) 0.3 (0.2-1.2) % Lymph # (Auto) 2.21 (0.9-3.2) K/mm3 [place] # (Auto) 0.7 H (0.1-0.6) K/mm3 Eos # (Auto) 0.2 (0-0.3) K/mm3 Baso # (Auto) 0.0 (0.0-0.1) K/mm3 Abs Immat Gran (auto) 0.03 (0.00-0.031) K/mm3 Absolute Neuts (auto) 6.3 (1.3-6.7) K/mm3 Absolute Nucleated RBC 0.000 (0.0-0.012) K/mm3 Nucleated RBC % 0.0 (0.0-0.2) % Sodium 140 (137-145) mmol/L Potassium 3.7 (3.4-5.0) mmol/L Chloride 105 (98-107) mmol/L Carbon Dioxide 27 (22-30) mmol/L Anion Gap 8 (4-12) mmol/L BUN 14 (7-17) mg/dL Creatinine 0.61 L (0.7-1.0) mg/dL Estim Creat Clear Calc 74 ml/min Estimated GFR > 60 (59 - ) Glucose 88 (65-110) mg/dL Calcium 9.6 (8.4-10.2) mg/dL <Salena Bridges PA-C - Last Filed: 07/16/24 10:28> Lab Results 07/14/24 Range/Units 21:29 WBC 9.4 (4.5-10.0) K/mm3 RBC 4.56 (4.2-5.4) M/mm3 Hgb 13.3 (12.0-15.0) g/dL Hct 41.3 (37.0-47.0) % MCV 90.6 (80-100) fl MCH 29.2 (26-34) pg MCHC 32.2 (32-36) g/dl RDW 13.3 (11.5-14.5) % Plt Count 230 (150-375) k/mm3 MPV 10.0 (7.4-10.4) fl Immature Gran % (Auto) 0.3 (0-0.5) % Neut % (Auto) 66.6 (45.5-73.1) % Lymph % (Auto) 23.4 (18.3-44.2) % [place] % (Auto) 7.1 (2.6-8.5) % Eos % (Auto) 2.3 (0-4.4) % Baso % (Auto) 0.3 (0.2-1.2) % Lymph # (Auto) 2.21 (0.9-3.2) K/mm3 [place] # (Auto) 0.7 H (0.1-0.6) K/mm3 Eos # (Auto) 0.2 (0-0.3) K/mm3 Baso # (Auto) 0.0 (0.0-0.1) K/mm3 Abs Immat Gran (auto) 0.03 (0.00-0.031) K/mm3 Absolute Neuts (auto) 6.3 (1.3-6.7) K/mm3 Absolute Nucleated RBC 0.000 (0.0-0.012) K/mm3 Nucleated RBC % 0.0 (0.0-0.2) % Sodium 140 (137-145) mmol/L Potassium 3.7 (3.4-5.0) mmol/L Chloride 105 (98-107) mmol/L Carbon Dioxide 27 (22-30) mmol/L Anion Gap 8 (4-12) mmol/L BUN 14 (7-17) mg/dL Creatinine 0.61 L (0.7-1.0) mg/dL Estim Creat Clear Calc 74 ml/min Estimated GFR > 60 (59 - ) Glucose 88 (65-110) mg/dL Calcium 9.6 (8.4-10.2) mg/dL <Melissa Gudino MD - Last Filed: 07/14/24 23:06> Imaging Data Radiologist's impression: Right ankle x-ray: FINDINGS: BONES: Nondisplaced fracture of the lateral malleolus is noted. Fracture of the medial malleolus is also seen. Displaced fragment is seen in the medial malleolus area. JOINT SPACES: Normal. SOFT TISSUES: Soft tissue swelling over the medial malleolus is seen. Air is also seen in the subcutaneous tissues. Calcaneal spur. IMPRESSION: Bimalleolar fracture. <Salena Bridges PA-C - Last Filed: 07/16/24 10:28> Critical Care Time Critical Care Time Critical Care Time: No <Salena Bridges PA-C - Last Filed: 07/16/24 10:28> Discharge Plan Discharge Clinical Impression: Ankle fracture, right Qualifiers: Encounter type: initial encounter Fracture type: closed Qualified Code(s): S 82.891A - Other fracture of right lower leg, initial encounter for closed fracture <Salena Bridges PA-C - Last Filed: 07/16/24 10:28> Patient Disposition: Still a Patient <Salena Bridges PA-C - Last Filed: 07/16/24 10:28> Condition: Stable <Salena Bridges PA-C - Last Filed: 07/16/24 10:28>
[2024-07-14] MEDS: HYDROcodone/acetaminophen (*CRX) 5-325 MG TABLET 1 TAB PO (18:14)
[2024-07-14 19:40] VITALS: BP 144/89; PULSE 80; RESP 18; O2SAT 99
--- OUTSIDE RECORDS SUMMARY | 2024-07-14 20:36 | XMS_ITS | Continuity of Care Document ---
Author Organization [facility] Address [address] [place] [address] [address] [place] [address] Phone Care Team Providers Care Consumer Sales Representative Name Role Phone Ross OD, Ernie Unavailable Unavailable Procedures Procedure Date Eye Exam & Treatment Refraction Eye Exam & Treatment Refraction Advance Directives Directive Yes / No Effective Date File Name No Information Encounters Encounter Description Practice Location Reason(s) For Visit Diagnoses Date Provider Providers Copied on Encounter [facility], [address] [place] [address] [address], [place], [place], [id number], tel:[phone] [facility] No Information Oct-2 2-200 9 Ross OD Ernie. [address] , [address], [place], [place], [facility], [place]. tel:[phone] [facility], [address] [place] [address] [address], [place], [place], [id number], tel:[phone] [facility] No Information Oct-1 6-200 8 Ross OD Ernie. [address] , [address], [place], [address], [place]. tel:[phone] Family History Family Member Type Diagnosis Age At Onset No Information Payers Payer name Insurance type Covered constitution party ID Authoriza tiorlin(s) [employer] Vision Plan CI [id number] Social History Type Description Quantity Date Captured [...]
--- OUTSIDE RECORDS SUMMARY | 2024-07-14 20:36 | XMS_ITS | Clinical Summary ---
Author Organization [facility] Address [address], [address] [address] Phone Care Team Providers Care Adjunct History Instructor Name Role Phone Carlos Alberto Clay MD Primary Care Provider [phone] Ernie Saba DO Unavailable [phone] Immunizations Immunization Administration Dates Next Due [...] Recently Relevant to Health Maintenance Insurance MEDICARE [facility] Care Teams Adjunct History Instructor Relationship Specialty Start Date End Date Carlos Alberto Clay MD [address] [place] [address] [address] [place] [address] PCP - General Family Medicine 03/30/15 Ernie Saba DO [address] [place] [id number] Gastroenterology 03/30/15
--- OUTSIDE RECORDS SUMMARY | 2024-07-14 20:36 | XMS_ITS | Clinical Summary ---
Author Organization [facility] Address [address] [place] [address] Care Team Providers Care Audio Director Name Role Phone Unavailable Primary Care Provider [...]
[2024-07-14 21:35] LABS: Basophils Percent Auto 0.3 % (0.2-1.2); Eosinophils Absolute Auto 0.2 K/mm3 (0-0.3); Eosinophils Percent Auto 2.3 % (0-4.4); Hematocrit 41.3 % (37.0-47.0); Hemoglobin 13.3 g/dL (12.0-15.0); Immature Granulocyte Absolute 0.03 K/mm3 (0.00-0.031); Immature Granulocyte Percent A 0.3 % (0-0.5); Lymphocytes Absolute Auto 2.21 K/mm3 (0.9-3.2); Lymphocytes Percent Auto 23.4 % (18.3-44.2); Mean Corpuscular HGB Conc 32.2 g/dl (32-36); Mean Corpuscular Hemoglobin 29.2 pg (26-34); Mean Corpuscular Volume 90.6 fl (80-100); Monocytes Absolute Auto 0.7 K/mm3 (0.1-0.6); Monocytes Percent Auto 7.1 % (2.6-8.5); Neutrophils Absolute Auto 6.3 K/mm3 (1.3-6.7); Neutrophils Percent Auto 66.6 % (45.5-73.1); Platelet Count Result 230 k/mm3 (150-375); Red Blood Count 4.56 M/mm3 (4.2-5.4); Red Cell Distribution Width 13.3 % (11.5-14.5); White Blood Count 9.4 K/mm3 (4.5-10.0)
[2024-07-14] MEDS: MORPHINE SULFATE (*CRX) 4 MG/ML INJ IV PUSH (21:43)
[2024-07-14 21:48] LABS: Anion Gap 8 mmol/L (4-12); Blood Urea Nitrogen 14 mg/dL (7-17); Calcium 9.6 mg/dL (8.4-10.2); Carbon Dioxide 27 mmol/L (22-30); Chloride 105 mmol/L (98-107); Estimated CRCL calculation 74 ml/min; Estimated Glomerular Filt Rate > 60; Glucose 88 mg/dL (65-110); Potassium 3.7 mmol/L (3.4-5.0); Sodium 140 mmol/L (137-145)
[2024-07-14 23:13] VITALS: BP 137/98; PULSE 70; RESP 16; O2SAT 99
[2024-07-14] MEDS: ceFAZolin SODIUM 1 GM VIAL IV PUSH (23:21)
[2024-07-14 23:56] VITALS: BMI 39.2
[2024-07-15 00:11] VITALS: BP 142/72; PULSE 73; RESP 16; TEMP 37.1; O2SAT 97
--- NOTE | 2024-07-15 01:13 | ADMGEN ---
This patient, Jackeline Connolly, was admitted to [facility] Room 306-02. Patient/family oriented to hospital policies and general routines including ID bracelet, bed and alarms, visiting hours, pain management, procedures, bathroom and other care routines, personal items, smoking policy, room service/diet, and visiting hours. Information on how to activate the Rapid Response Team has been discussed. Patient/Family are encouraged to report perceived risks to care and to ask questions if they do not understand what they are told or what they should do.
[2024-07-15] MEDS: MORPHINE SULFATE (*CRX) 4 MG/ML INJ IV PUSH ×4 (02:32→21:13)
[2024-07-15 04:15] VITALS: BP 151/53; PULSE 74; RESP 18; TEMP 35.6; O2SAT 98
--- OUTSIDE RECORDS SUMMARY | 2024-07-15 07:17 | XMS_ITS | Continuity of Care Document ---
Author Organization [facility] Address [address] [place] [address] [address] [place] [address] Phone Care Team Providers Care Pulley Man Name Role Phone Ross OD, Ernie Unavailable Unavailable Procedures Procedure Date Eye Exam & Treatment Refraction Eye Exam & Treatment Refraction Advance Directives Directive Yes / No Effective Date File Name No Information Encounters Encounter Description Practice Location Reason(s) For Visit Diagnoses Date Provider Providers Copied on Encounter [facility], [address] [place] [address] [address], [place], [place], [id number], tel:[phone] [facility] No Information Oct-2 2-200 9 Ross OD Ernie. [address] , [address], [place], [place], [facility], [place]. tel:[phone] [facility], [address] [place] [address] [address], [place], [place], [id number], tel:[phone] [facility] No Information Oct-1 6-200 8 Ross OD Ernie. [address] , [address], [place], [address], [place]. tel:[phone] Family History Family Member Type Diagnosis Age At Onset No Information Payers Payer name Insurance type Covered constitution party ID Authoriza tiorlin(s) [employer] Vision Plan CI [id number] Social History Type Description Quantity Date Captured [...]
[2024-07-15] MEDS: PANTOPRAZOLE 40 MG TABLET PO (08:30)
[2024-07-15 08:31] VITALS: PULSE 80
[2024-07-15] MEDS: ATORVASTATIN 40 MG TABLET PO (08:31)
[2024-07-15] MEDS: OPTI-GEN TAB 1 TABLET PO (08:31)
[2024-07-15] MEDS: METOPROLOL SUCCINATE EXT REL 50 MG TABCR PO (08:31)
[2024-07-15] MEDS: LEVOTHYROXINE SODIUM 25 MCG TABLET PO (08:35)
[2024-07-15] MEDS: LEVOTHYROXINE SODIUM 112 MCG TABLET PO (08:35)
[2024-07-15] MEDS: ASPIRIN 81 MG ENTERIC TABLET PO (08:36)
[2024-07-15 09:06] VITALS: O2SAT 94
--- NOTE | 2024-07-15 09:07 | P.CONOP_ITS ---
Assessment and Plan Assessment and plan (1) Fracture of ankle, bimalleolar, right, closed: Qualifiers: Encounter type: initial encounter Qualified Code(s): S82.841A - Displaced bimalleolar fracture of right lower leg, initial encounter for closed fracture Code(s): S82.841A - Displaced bimalleolar fracture of right lower leg, initial encounter for closed fracture Status: Acute Assessment and Plan: New patient evaluation for chief complaint right ankle fracture. History, physical exam and radiographs reviewed with the patient. Fall yesterday with ankle fracture. Splinted and admitted for further care. Discussed the condition, nature, etiology and course of natural history with the patient. Treatment options including surgical and nonoperative treatment were reviewed. Risks and benefits of each as well as alternatives reviewed. The patient's questions were answered. Conservative treatment ice, compression and elevation. Mechanical DVT prophylaxis with SCDs for the left leg. May continue with aspirin 81 mg. Patient would like to discuss surgical treatment with her prior to making final treatment decision. History of Present Illness HPI Consult date: 07/15/24 Requesting physician: Melissa Gudino MD Chief complaint: R. ankle fx Narrative: 79-year-old woman who tripped getting out of the car and injured right ankle. Unable to bear weight. Was initially seen in urgent care and splinted. She was transferred to [place] [facility] room due to inability to transfer and ambulate. Admitted for further care. Patient complains of right ankle pain. She denies numbness or tingling. Denies any prior problems with the ankle. She is status post bilateral knee replacement and was an independent ambulator without assistive devices. Denies head, neck injury at the time of her fall or loss of consciousness. Review of Systems 2 Constitutional: Constitutional: Denies fever(s) Eyes: Eyes: Denies blurry vision ENT: Reports Normal hearing present Cardiovascular: Cardiovascular: Denies chest pain and Denies dyspnea Respiratory: Respiratory: Denies dyspnea and Denies wheezing Gastrointestinal: Gastrointestinal: Denies abdominal pain Genitourinary: Genitourinary: Denies urinary urgency Musculoskeletal: Musculoskeletal: Reports as per HPI and Denies numbness Integumentary/Breasts: Skin/Breast: Denies changing lesions and Denies sores Neurologic: Reports Normal hearing present, Denies behavioral changes, Denies confusion, Denies numbness and Denies convulsions Psychiatric: Psychiatric: Denies behavioral changes, Denies confusion and Denies hallucinations Endocrine: Endocrine: Denies heat intolerance Hematologic/Lymphatic: Hematologic/Lymphatic: Denies easy bleeding Allergic/Immunologic: Allergic/Immunologic: Denies wheezing PMFSH Past Medical History Medical History (Updated 07/15/24 @ 09:12 by Andrew Medeiros MD) Fracture of ankle, bimalleolar, right, closed Immunization due Sensation of fullness in left ear Right-sided epistaxis Impacted cerumen of left ear Knee pain Fatigue Epistaxis Cerumen impaction Impacted cerumen of left ear Eustachian tube dysfunction Hepatitis C antibody test negative (~12/07/16) Left facial numbness Surgical History Surgical History Hx of colonoscopy hx polyps. 2016 normal/ repeat in5-7 years Family History Family History Sibling Hypertension Family history of elevated blood lipids Diabetes mellitus Mother Family history of cardiovascular disease Cerebrovascular accident Family history of malignant neoplasm of breast Father Acute myocardial infarction Family history of cardiovascular disease Family history of Parkinson's disease Social History Social History Smoking status: Never smoker Alcohol intake: current Drinks per week: 2 Substance use: never Substance use type: does not use Do You Feel Safe in your Home?: Yes Lack of Transportation: No Lack of Food: Never True Current Housing: I Have Housing Concerned About Future Housing: No Difficulty Paying Gas/Electric Bills: No Difficulty Paying for Meds: No Currently Unemployed: No Education: High School Diploma/GED Difficulty w/ Childcare or Family Care: No Gender identity (if verbalized by the patient): Female Spiritual care concerns: No Meds Home Medications and Allergies Home Medications Medication Instructions Recorded Confirmed Type aspirin 81 mg tablet,delayed 81 mg PO DAILY 01/27/19 07/15/24 History release hydrocodone 5 mg-acetaminophen 325 1 tablet PO Q8H 07/19/20 07/15/24 History mg tablet omeprazole magnesium 20 mg 20 mg PO .QOD 01/16/23 07/15/24 History tablet,delayed release (Prilosec OTC) vitamins A,C,B-eiyr-mgmyod 4,296 1 cap PO DAILY 01/16/23 07/15/24 History mcg-226 mg-90 mg capsule (PreserVision AREDS) atorvastatin 40 mg tablet 40 mg PO DAILY #90 tabs 03/23/24 07/15/24 Rx levothyroxine 137 mcg tablet 137 mcg PO DAILY #90 tabs 03/26/24 07/15/24 Rx metoprolol succinate 50 mg 50 mg PO DAILY #90 tabs 05/20/24 07/15/24 Rx tablet,extended release 24 hr trazodone 50 mg tablet 50 mg PO QHS 07/15/24 07/15/24 History Allergies Allergy/AdvReac Type Severity Reaction Status Date / Time amlodipine Allergy Unknown lip Verified 07/15/24 00:20 swelling lisinopril Allergy Unknown cough Verified 07/15/24 00:20 spironolactone Allergy Unknown Lightheaded Verified 07/15/24 00:20 ness fluticasone (From Flonase) AdvReac Dry Mouth Verified 07/15/24 00:20 Vital Signs Vital Signs - 24 hr 07/14/24 17:30 07/14/24 19:40 07/14/24 23:13 Temperature 97.9 F Pulse Rate 81 80 70 Respiratory Rate 17 18 16 Blood Pressure 185/70 H 144/89 H 137/98 H Pulse Oximetry 99 99 99 Oxygen Delivery Room Air 07/15/24 00:11 07/15/24 04:15 07/15/24 08:31 Temperature 98.8 F 96.1 F L Pulse Rate 73 74 80 Respiratory Rate 16 18 Blood Pressure 142/72 H 151/53 H Pulse Oximetry 97 98 Oxygen Delivery Exam 2 Const: General: No confusion Orientation/consciousness: patient oriented x3 and No confusion HENMT: Head: normal to inspection, normocephalic and atraumatic Eyes: Conjunctivae: conjunctivae normal Sclera: sclerae normal Neck: Neck: supple and nontender Chest: Chest palpation & inspection: normal inspection of the chest Resp: Effort & Inspection: normal respiratory effort and no audible wheezes Cardio: Rate: regular rate Rhythm: regular rhythm : General: Yes deferred Skin: General skin exam: no rashes or lesions noted Neuro: General: patient oriented x3 and No confusion Extrem: General: capillary refill normal Right upper extremity: normal to inspection Left upper extremity: normal to inspection Right lower extremity: hip/thigh Details: no tenderness, knee Details: normal to inspection ( Well-healed midline anterior surgical incision for total knee) and abnormal ROM ( Knee range of motion deferred secondary to fracture); no tenderness and no swelling, ankle Details: tenderness Location: of the lateral malleolus and anteromedially, swelling ( moderate) Details: laterally and medially, abnormal ROM Details: pain with active ROM, ecchymosis ( moderate diffusely ankle) and other ( splint in place. Toes exposed with good capillary refill. Good sensation of touch. Able to move toes.) and foot Details: vascular exam Details: dorsalis pedis pulse present and normal capillary refill, tendon exam (intact, able to flex and extend toes) and motor-sensory exam Details: light- touch normal Location: in all toes Left lower extremity: normal to inspection, hip/thigh Details: normal to inspection, knee Details: normal to inspection (Well-healed midline anterior surgical incision for total knee) and normal ROM, ankle Details: normal to inspection and normal ROM ( Active flexion and extension intact); no tenderness and no swelling and foot Details: vascular exam Details: dorsalis pedis pulse present and normal capillary refill, tendon exam active flexion normal and active flexion abnormal and motor-sensory exam light-touch normal; no tenderness Psych: Affect: normal affect Results Labs 07/14/24 21:29 07/14/24 21:29 Labs: Abnormal lab results 07/14/24 Range/Units 21:29 [place] # (Auto) 0.7 H (0.1-0.6) K/mm3 Creatinine 0.61 L (0.7-1.0) mg/dL H & H 07/14/24 Range/Units 21:29 Hgb 13.3 (12.0-15.0) g/dL Hct 41.3 (37.0-47.0) % All other labs normal. Diagnostic results Ankle/Foot x-ray: image reviewed ( Right ankle with a Hendrickson B lateral malleolus fracture with displacement. Ankle mortise relatively well aligned. Small avulsion from the medial malleolus.)
[2024-07-15 14:00] VITALS: BP 146/48; PULSE 77; RESP 18; TEMP 36.2; O2SAT 94
--- NOTE | 2024-07-15 15:48 | P.HP_ITS ---
H&P: HPI History of Present Illness Date/Time: 07/15/24 15:48 Chief Complaint: Extremity Injury, Lower Rt ankle fracture Narrative: ER- Focused HPI: This is a 79 year old female that presents to the ER for right ankle pain. Reports she went to sit in the car and dropped some papers she was holding. Reports she lost her balance and her right ankle went under the car. Reports right knee and ankle pain. She did not hit her head or lose consciousness. She had imaging at urgent care which showed an ankle fracture. She was sent to the ER for further evaluation. Patient has Bimalleolar fracture, Patient Rt ankle was splinted at an urgent care, patient stats pain is better when she does not move her ankle, patient was seen by Dr. Medeiros, an orthepedic, recommended surgical intervention to repair the knee, patient will discuss with her and will plan Review of Systems Constitutional: Constitutional: Denies fever(s) Eyes: Eyes: Denies blurry vision ENT: Reports Normal hearing present Cardiovascular: Cardiovascular: Denies chest pain and Denies dyspnea Respiratory: Respiratory: Denies dyspnea and Denies wheezing Gastrointestinal: Gastrointestinal: Denies abdominal pain Genitourinary: Genitourinary: Denies urinary urgency Musculoskeletal: Musculoskeletal: Reports as per HPI and Denies numbness Integumentary/Breasts: Skin/Breast: Denies changing lesions and Denies sores Neurologic: Reports Normal hearing present, Denies behavioral changes, Denies confusion, Denies numbness and Denies convulsions Psychiatric: Psychiatric: Denies behavioral changes, Denies confusion and Denies hallucinations Endocrine: Endocrine: Denies heat intolerance Hematologic/Lymphatic: Hematologic/Lymphatic: Denies easy bleeding Allergic/Immunologic: Allergic/Immunologic: Denies wheezing PMFSH Past Medical History Medical History (Updated 07/15/24 @ 09:12 by Andrew Medeiros MD) Fracture of ankle, bimalleolar, right, closed Immunization due Sensation of fullness in left ear Right-sided epistaxis Impacted cerumen of left ear Knee pain Fatigue Epistaxis Cerumen impaction Impacted cerumen of left ear Eustachian tube dysfunction Hepatitis C antibody test negative (~12/07/16) Left facial numbness Surgical History Surgical History Hx of colonoscopy hx polyps. 2016 normal/ repeat in5-7 years Family History Family History Sibling Hypertension Family history of elevated blood lipids Diabetes mellitus Mother Family history of cardiovascular disease Cerebrovascular accident Family history of malignant neoplasm of breast Father Acute myocardial infarction Family history of cardiovascular disease Family history of Parkinson's disease Social History Social History Smoking status: Never smoker Alcohol intake: current Drinks per week: 2 Substance use: never Substance use type: does not use Do You Feel Safe in your Home?: Yes Lack of Transportation: No Lack of Food: Never True Current Housing: I Have Housing Concerned About Future Housing: No Difficulty Paying Gas/Electric Bills: No Difficulty Paying for Meds: No Currently Unemployed: No Education: High School Diploma/GED Difficulty w/ Childcare or Family Care: No Gender identity (if verbalized by the patient): Female Spiritual care concerns: No Meds Home Medications and Allergies Home Medications Medication Instructions Recorded Confirmed Type aspirin 81 mg tablet,delayed 81 mg PO DAILY 01/27/19 07/15/24 History release hydrocodone 5 mg-acetaminophen 325 1 tablet PO Q8H 07/19/20 07/15/24 History mg tablet omeprazole magnesium 20 mg 20 mg PO .QOD 01/16/23 07/15/24 History tablet,delayed release (Prilosec OTC) vitamins A,C,V-psvl-acbrts 4,296 1 cap PO DAILY 01/16/23 07/15/24 History mcg-226 mg-90 mg capsule (PreserVision AREDS) atorvastatin 40 mg tablet 40 mg PO DAILY #90 tabs 03/23/24 07/15/24 Rx levothyroxine 137 mcg tablet 137 mcg PO DAILY #90 tabs 03/26/24 07/15/24 Rx metoprolol succinate 50 mg 50 mg PO DAILY #90 tabs 05/20/24 07/15/24 Rx tablet,extended release 24 hr trazodone 50 mg tablet 50 mg PO QHS 07/15/24 07/15/24 History Allergies Allergy/AdvReac Type Severity Reaction Status Date / Time amlodipine Allergy Unknown lip Verified 07/15/24 00:20 swelling lisinopril Allergy Unknown cough Verified 07/15/24 00:20 spironolactone Allergy Unknown Lightheaded Verified 07/15/24 00:20 ness fluticasone (From Flonase) AdvReac Dry Mouth Verified 07/15/24 00:20 Vital Signs Vital Signs - 24 hr 07/14/24 17:30 07/14/24 19:40 07/14/24 23:13 Temperature 36.6 C Pulse Rate 81 80 70 Respiratory Rate 17 18 16 Blood Pressure 185/70 H 144/89 H 137/98 H Pulse Oximetry 99 99 99 Oxygen Delivery Room Air 07/15/24 00:11 07/15/24 04:15 07/15/24 08:00 Temperature 37.1 C 35.6 C L Pulse Rate 73 74 Respiratory Rate 16 18 Blood Pressure 142/72 H 151/53 H Pulse Oximetry 97 98 Oxygen Delivery Room Air 07/15/24 08:31 07/15/24 09:06 07/15/24 14:00 Temperature 36.2 C L Pulse Rate 80 77 Respiratory Rate 18 Blood Pressure 146/48 H Pulse Oximetry 94 94 Oxygen Delivery Room Air Exam Narrative: Patient is comfortable, NAD HEENT: eyes are clear and none icteric LUNGS:CTA HEART: RR S1S2 ABD: BS+, Soft and nontender Lower extremities: no edema RT lower extremity in the splint SKIN: nonjaundiced Neuro: grossly intact. H&P: Results Labs Labs: Short CBC 07/14/24 Range/Units 21:29 WBC 9.4 (4.5-10.0) K/mm3 Hgb 13.3 (12.0-15.0) g/dL Hct 41.3 (37.0-47.0) % Plt Count 230 (150-375) k/mm3 [facility] 07/14/24 21:29 Sodium 140 Potassium 3.7 Chloride 105 Carbon Dioxide 27 BUN 14 Creatinine 0.61 L Glucose 88 Calcium 9.6 Assessment and Plan Assessment and plan (1) Fracture of ankle, bimalleolar, right, closed: Qualifiers: Encounter type: initial encounter Qualified Code(s): S82.841A - Displaced bimalleolar fracture of right lower leg, initial encounter for closed fracture Code(s): S82.841A - Displaced bimalleolar fracture of right lower leg, initial encounter for closed fracture Status: Acute (2) Mixed hyperlipidemia: Code(s): E78.2 - Mixed hyperlipidemia Status: Acute Plan Patient has Bimalleolar fracture, Patient Rt ankle was splinted at an urgent care, patient stats pain is better when she does not move her ankle, patient was seen by Dr. Medeiros, an orthepedic, recommended surgical intervention to repair the knee, patient will discuss with her and will plan Quality VTE Prophylaxis VTE prophylaxis: mechanical ordered Hospitalist MIPS Advance Care Plan I have confirmed that the patient's Advanced Care Plan is present, code status is documented, or surrogate decision maker is listed in patient medical record.: Yes Medication Reconciliation I have utilized all available resources to obtain, update and review the patients current medications (includes all prescriptions, OTC, herbals, ca nnabis, and nutritional supplements).: Yes
[2024-07-15 20:44] VITALS: BP 164/61; PULSE 81; RESP 16; TEMP 37.1; O2SAT 94
[2024-07-16] VITALS (16 sets, daily range): BP systolic 132–179; BP diastolic 52–73; PULSE 66–89; RESP 14–18; TEMP 36.4–37.1; O2SAT 93–100
[2024-07-16 05:19] LABS: Hematocrit 37.7 % (37.0-47.0); Hemoglobin 12.3 g/dL (12.0-15.0); Mean Corpuscular HGB Conc 32.6 g/dl (32-36); Mean Corpuscular Hemoglobin 29.4 pg (26-34); Platelet Count Result 202 k/mm3 (150-375); Red Blood Count 4.19 M/mm3 (4.2-5.4); Red Cell Distribution Width 13.3 % (11.5-14.5); White Blood Count 9.3 K/mm3 (4.5-10.0)
[2024-07-16 05:34] LABS: Anion Gap 6 mmol/L (4-12); Blood Urea Nitrogen 13 mg/dL (7-17); Calcium 8.9 mg/dL (8.4-10.2); Carbon Dioxide 24 mmol/L (22-30); Chloride 105 mmol/L (98-107); Estimated CRCL calculation 86 ml/min; Estimated Glomerular Filt Rate > 60; Glucose 114 mg/dL (65-110); Magnesium 1.7 mg/dL (1.6-2.3); Potassium 4.1 mmol/L (3.4-5.0); Sodium 135 mmol/L (137-145)
[2024-07-16] MEDS: LACTATED RINGERS 1,000 ML 30 ML IV CONT (08:30)
[2024-07-16] MEDS: ACETAMINOPHEN 500 MG TABLET 1000 MG PO (09:16)
[2024-07-16] MEDS: KETOROLAC 15 MG/ML VIAL (*BKC) IV PUSH (09:16)
[2024-07-16] MEDS: METOPROLOL SUCCINATE EXT REL 50 MG TABCR PO (09:16)
--- NOTE | 2024-07-16 09:30 | WPDANESEPPF ---
Anes - Initial Pre Proc Eval Procedure: Operation Date: 07/16/24 09:30 Proposed Procedures p Open Reduction Internal Fixation Right Ankle Fracture - Andrew Medeiros MD Date/Time: 07/16/24 09:30 Surgeon: Shayy Willingham DO Pre Op Diagnosis: R. ankle fx Patient Data Age: 79 Gender: F Height: 1.63 m Weight: 103.8 kg Last Vital Signs Temp 36.6 C 07/16/24 09:14 Pulse 79 07/16/24 09:16 Resp 16 07/16/24 05:45 BP 179/68 H 07/16/24 09:14 Pulse Ox 96 07/16/24 09:14 O2 Del Method Room Air 07/16/24 09:14 Allergies Allergy/AdvReac Type Severity Reaction Status Date / Time amlodipine Allergy Unknown lip Verified 07/16/24 09:13 swelling lisinopril Allergy Unknown cough Verified 07/16/24 09:13 spironolactone Allergy Unknown Lightheaded Verified 07/16/24 09:13 ness fluticasone (From Flonase) AdvReac Dry Mouth Verified 07/16/24 09:13 Home Medications Medication Instructions Recorded Confirmed Type aspirin 81 mg tablet,delayed 81 mg PO DAILY 01/27/19 07/15/24 History release hydrocodone 5 mg-acetaminophen 325 1 tablet PO Q8H 07/19/20 07/15/24 History mg tablet omeprazole magnesium 20 mg 20 mg PO .QOD 01/16/23 07/15/24 History tablet,delayed release (Prilosec OTC) vitamins A,C,L-fjds-qfouoq 4,296 1 cap PO DAILY 01/16/23 07/15/24 History mcg-226 mg-90 mg capsule (PreserVision AREDS) atorvastatin 40 mg tablet 40 mg PO DAILY #90 tabs 03/23/24 07/15/24 Rx levothyroxine 137 mcg tablet 137 mcg PO DAILY #90 tabs 03/26/24 07/15/24 Rx metoprolol succinate 50 mg 50 mg PO DAILY #90 tabs 05/20/24 07/15/24 Rx tablet,extended release 24 hr trazodone 50 mg tablet 50 mg PO QHS 07/15/24 07/15/24 History Laboratory Tests 07/16/24 05:10 WBC 9.3 K/mm3 (4.5-10.0) RBC 4.19 L M/mm3 (4.2-5.4) Hgb 12.3 g/dL (12.0-15.0) Hct 37.7 % (37.0-47.0) MCV 90.0 fl (80-100) MCH 29.4 pg (26-34) MCHC 32.6 g/dl (32-36) RDW 13.3 % (11.5-14.5) Plt Count 202 k/mm3 (150-375) MPV 10.0 fl (7.4-10.4) Sodium 135 L mmol/L (137-145) Potassium 4.1 mmol/L (3.4-5.0) Chloride 105 mmol/L (98-107) Carbon Dioxide 24 mmol/L (22-30) Anion Gap 6 mmol/L (4-12) BUN 13 mg/dL (7-17) Creatinine 0.51 L mg/dL (0.7-1.0) Estim Creat Clear Calc 86 ml/min Estimated GFR > 60 (59 - ) Glucose 114 H mg/dL (65-110) Calcium 8.9 mg/dL (8.4-10.2) Magnesium 1.7 mg/dL (1.6-2.3) Patient hx anesthesia problems: none Family hx anesthesia problems: none Results Review: All pre-operative results and documents have been reviewed as part of the pre-operative evaluation. [facility] Past Medical History Medical History Fracture of ankle, bimalleolar, right, closed Immunization due Sensation of fullness in left ear Right-sided epistaxis Impacted cerumen of left ear Knee pain Fatigue Epistaxis Cerumen impaction Impacted cerumen of left ear Eustachian tube dysfunction Hepatitis C antibody test negative (~12/07/16) Left facial numbness Surgical History Surgical History Hx of colonoscopy hx polyps. 2016 normal/ repeat in5-7 years Family History Family History Sibling Hypertension Family history of elevated blood lipids Diabetes mellitus Mother Family history of cardiovascular disease Cerebrovascular accident Family history of malignant neoplasm of breast Father Acute myocardial infarction Family history of cardiovascular disease Family history of Parkinson's disease Social History Social History Smoking status: Never smoker Alcohol intake: current Drinks per week: 2 Substance use: never Substance use type: does not use Do You Feel Safe in your Home?: Yes Lack of Transportation: No Lack of Food: Never True Current Housing: I Have Housing Concerned About Future Housing: No Difficulty Paying Gas/Electric Bills: No Difficulty Paying for Meds: No Currently Unemployed: No Education: High School Diploma/GED Difficulty w/ Childcare or Family Care: No Gender identity (if verbalized by the patient): Female Spiritual care concerns: No Anes - Eval Final PreProcedure Day of Procedure 07/16/24 09:30 Patient weight: obese Heart: regular rate and rhythm Lungs: clear to auscultation Airway: Mallampati scale class II Neurological: alert and oriented Last oral intake: >/= 8 hours ASA classification: III Emergent: no Anesthetic plan: proceed Anesthesia type and monitoring: general LMA and standard monitoring Results Review: All pre-operative results and documents have been reviewed as part of the pre-operative evaluation. Informed Consent: The patient's anesthetic plan and its attendant risks and benefits were discussed with the patient/family/POA. Questions were solicited and answers provided to the satisfaction of the patient/family/POA.
--- NOTE | 2024-07-16 09:52 | WPDHPUPDATE1 ---
History and Physical Update Update Date/Time: 07/16/24 09:52 History and Physical has been reviewed, including an updated exam of the patient. There are NO changes in the patient's condition. Risks, benefits, and alternatives have been discussed and questions answered. Patient agrees to proceed with procedure. PLAN IS FOR ORIF RIGHT ANKLE FRACTURE
[2024-07-16] MEDS: ceFAZolin 2 GM/D5W 50 ML 2 GM/50 ML BAG IVPB ×2 (10:02→17:09)
--- NOTE | 2024-07-16 10:36 | SUR.OPER ---
Patient came to OR with urinary catheter
[2024-07-16] MEDS: BUPivacaine HCL 0.5% 10 ML AMP 20 ML INFILTRATE (10:45)
[2024-07-16] MEDS: VANCOMYCIN 1,500 MG/NS 500 ML 1,500 MG/500 ML BAG 333.33 MG IVPB (10:45)
--- NOTE | 2024-07-16 12:25 | W.PM.PROC2 ---
Procedure Note - Detailed Date of Procedure 07/16/24 Pre-op Diagnosis R. ankle fx Post-op Diagnosis Same Procedure Performed ORIF RIGHT ANKLE FRACTURE WITH SYNDESMOTIC TIGHTROPE FIXATION, I AND D WITH WOUND CLOSURE MEDIAL ANKLE WOUND. Surgeon Mike Burger MD Anesthesia General Description of Procedure THE PATIENT WAS TAKEN TO THE OR. THE RIGHT LEG WAS PREPPED AND DRAPED IN THE NORMAL FASHION. AN INCISION WAS MADE AT THE DISTAL FIBULA TIP. A GUIDE PIN WAS INSERTED USING FLUOROSCOPY AND BRIDGING THE FRACTURE FRAGMENTS. A REAMER WAS USED TO REAM THE PROXIMAL AND DISTAL FRACTURE FRAGMENTS. A 13 X 130 MM ARTHREX FIBULAR ROSINA WAS INSERTED AND LOCKED BOTH PROXIMALLY AND DISTALLY. NEXT 2 TIGHTROPE IMPLANTS WERE INSERTED THROUGH THE ROSINA AND OUT THE MEDIAL CORTEX OF THE TIBIA. THE COMPONENT WAS TIGHTENED WITH THE ANKLE IN NEUTRAL FLEXION. C ARM WAS USED TO IMAGE THE ANKLE AND IT WAS FOUND THAT HARDWARE WAS IN GOOD POSITION AND THE SYNDESMOSIS AND FIBULA FRACTURE WAS REDUCED WELL. C ARM WAS USED THE CONFIRM THE POSITION OF THE ANKLE AND HARDWARE. NEXT THE WOUNDS WERE WASHED AND 2-0 AND 3-0 VICRYL SUTURES WERE USED TO APPROXIMATED THE WOUNDS. KELVIN WERE USED TO CLOSE THE SKIN. NEXT THE MEDIAL SIDE OF THE ANKLE WAS EXPLORED. THERE WAS A 2 CM LACERATION THAT WAS DOWN TO THE FASCIA BUT THERE NO COMMUNICATION WITH THE ANKLE JOINT OR THE FRACTURE. THE LACERATION WAS EXTENDED WITH A KNIFE. THE WOUND WAS WASHED THOROUGHLY AND THE SKIN WAS REPAIRED WITH 3-0 PROLINE SUTURE. STERILE DRESSING WAS APPLIED. A SUE JOHNSON PLASTER SPLINT WAS PLACED. PATIENT WAS EXTUBATED AND SENT TO RECOVERY ROOM IN STABLE CONDITION. Estimated Blood Loss 40 Urine Output 1,100 Complications No immediate complications Condition Stable Disposition PACU
--- NOTE | 2024-07-16 14:55 | PCPTNOTE ---
Attempted PT evaluation. Pt refused stating she was feeling confused. Nurse aware. will follow.
[2024-07-16] MEDS: ATORVASTATIN 40 MG TABLET PO (15:06)
[2024-07-16] MEDS: OPTI-GEN TAB 1 TABLET PO (15:06)
[2024-07-16] MEDS: HYDROcodone/acetaminophen (*CRX) 5-325 MG TABLET 1 TAB PO ×2 (15:07→21:31)
[2024-07-16] MEDS: ASPIRIN 81 MG ENTERIC TABLET PO (15:07)
--- NOTE | 2024-07-16 15:09 | P.PNIM_ITS ---
Progress Note: A&P Assessment and Plan (1) Fracture of ankle, bimalleolar, right, closed: Qualifiers: Encounter type: initial encounter Qualified Code(s): S82.841A - Displaced bimalleolar fracture of right lower leg, initial encounter for closed fracture Code(s): S82.841A - Displaced bimalleolar fracture of right lower leg, initial encounter for closed fracture Status: Acute (2) Mixed hyperlipidemia: Code(s): E78.2 - Mixed hyperlipidemia Status: Acute Plan Patient has Bimalleolar fracture, Patient Rt ankle was splinted at an urgent care, patient stats pain is better when she does not move her ankle, patient was seen by Dr. Medeiros, an orthepedic, recommended surgical intervention to repair the knee, patient will discuss with her and will plan Today patient was taken to OR and had ORIF of RT ankle, patient stats feels better, once okay with the surgeon will have PT/OT work with patient, patient will benefit going to rehab. Subjective Date/time seen: 07/16/24 15:09 Interval history: Patient has Bimalleolar fracture, Patient Rt ankle was splinted at an urgent care, patient stats pain is better when she does not move her ankle, patient was seen by Dr. Medeiros, an orthepedic, recommended surgical intervention to repair the knee, patient will discuss with her and will plan. Today patient was taken to OR and had ORIF of RT ankle, patient stats feels better, once okay with the surgeon will have PT/OT work with patient, patient will benefit going to rehab. Review of Systems Constitutional: Constitutional: Denies fever(s) Eyes: Eyes: Denies blurry vision ENT: Reports Normal hearing present Cardiovascular: Cardiovascular: Denies chest pain and Denies dyspnea Respiratory: Respiratory: Denies dyspnea and Denies wheezing Gastrointestinal: Gastrointestinal: Denies abdominal pain Genitourinary: Genitourinary: Denies urinary urgency Musculoskeletal: Musculoskeletal: Reports as per HPI and Denies numbness Integumentary/Breasts: Skin/Breast: Denies changing lesions and Denies sores Neurologic: Reports Normal hearing present, Denies behavioral changes, Denies confusion, Denies numbness and Denies convulsions Psychiatric: Psychiatric: Denies behavioral changes, Denies confusion and Denies hallucinations Endocrine: Endocrine: Denies heat intolerance Hematologic/Lymphatic: Hematologic/Lymphatic: Denies easy bleeding Allergic/Immunologic: Allergic/Immunologic: Denies wheezing Exam Narrative: Patient is comfortable, NAD HEENT: eyes are clear and none icteric LUNGS:CTA HEART: RR S1S2 ABD: BS+, Soft and nontender Lower extremities: no edema RT lower extremity in the splint SKIN: nonjaundiced Neuro: grossly intact. Const: General: No confusion Orientation/consciousness: No confusion Neuro: General: No confusion Cranial nerves: Yes Normal hearing present Objective Data Vital Signs Vital Signs: Vital Signs - 24 hr 07/15/24 20:44 07/16/24 05:45 07/16/24 08:00 Temperature 37.1 C 36.8 C Pulse Rate 81 84 Respiratory Rate 16 16 Blood Pressure 164/61 H 169/70 H Pulse Oximetry 94 94 94 Oxygen Delivery Room Air Oxygen Flow Rate 07/16/24 09:14 07/16/24 09:16 07/16/24 12:21 Temperature 36.6 C 36.7 C Pulse Rate 79 79 82 Respiratory Rate 18 Blood Pressure 179/68 H 154/66 H Pulse Oximetry 96 98 Oxygen Delivery Room Air Simple Face Mask Oxygen Flow Rate 8 07/16/24 12:30 07/16/24 12:38 07/16/24 12:45 Temperature Pulse Rate 67 72 Respiratory Rate 16 16 Blood Pressure 158/62 H 138/69 Pulse Oximetry 100 95 93 Oxygen Delivery Simple Face Mask Room Air Room Air Oxygen Flow Rate 8 07/16/24 13:00 07/16/24 13:15 07/16/24 13:50 Temperature 36.4 C Pulse Rate 68 69 66 Respiratory Rate 14 14 17 Blood Pressure 147/66 H 147/57 H 146/63 H Pulse Oximetry 96 96 96 Oxygen Delivery Room Air Room Air Oxygen Flow Rate 07/16/24 14:05 07/16/24 14:28 Temperature 36.4 C L Pulse Rate 69 Respiratory Rate 17 Blood Pressure 151/53 H Pulse Oximetry 96 99 Oxygen Delivery Room Air Oxygen Flow Rate Intake/Output Intake/Output: Intake & Output 07/13/24 07/14/24 07/15/24 07/16/24 23:59 23:59 23:59 23:59 Intake Total 1446 750.0 Output Total 2200 6525 Balance -754 -1525.0 Meds/Results Medications: Active Medications Generic Name Dose Route Start Last Admin Trade Name Freq PRN Reason Stop Dose Admin Acetaminophen 650 mg 07/16/24 13:27 Acetaminophen 325 Mg Tablet PO Q6H PRN Pain Rated 1-3 Hydrocodone Bitart/Acetaminophen 1 tab 07/15/24 02:18 Hydrocodone/Acetaminophen (*Crx) 5-325 Mg Tablet PO Q4H PRN Pain Rated 4-6 Hydrocodone Bitart/Acetaminophen 1 tab 07/16/24 14:00 07/16/24 15:07 Hydrocodone/Acetaminophen (*Crx) 5-325 Mg Tablet PO 1 tab Q8H LENARD Administration Aspirin 81 mg 07/15/24 09:00 07/16/24 15:07 Aspirin 81 Mg Enteric Tablet PO 81 mg DAILY LENARD Administration Atorvastatin Calcium 40 mg 07/15/24 09:00 07/16/24 15:06 Atorvastatin 40 Mg Tablet PO 40 mg DAILY LENARD Administration Diazepam 5 mg 07/16/24 13:27 Diazepam (*Crx) 5 Mg Tablet PO Q8H PRN Muscle Spasm Dextrose/Sodium Chloride 1,000 mls @ 80 mls/hr 07/16/24 13:27 Dextrose 5% Sodium Chloride 0.45% IV CONT .[id number] LENARD Cefazolin Sodium 2 gm in 50 mls @ 100 mls/hr 07/16/24 18:00 Ancef 2 Gm/D5w 50 Ml IVPB 07/17/24 10:29 Q8H LENARD Levothyroxine Sodium 112 mcg 07/15/24 06:30 07/15/24 08:35 Levothyroxine Sodium 112 Mcg Tablet PO 112 mcg DAILY@0630 LENARD Administration Levothyroxine Sodium 25 mcg 07/15/24 06:30 07/15/24 08:35 Levothyroxine Sodium 25 Mcg Tablet PO 25 mcg DAILY@0630 LENARD Administration Metoprolol Succinate 50 mg 07/15/24 09:00 07/16/24 09:16 Metoprolol Succinate Ext Rel 50 Mg Tabcr PO 50 mg DAILY LENARD Administration Morphine Sulfate 4 mg 07/15/24 02:18 07/15/24 21:13 Morphine Sulfate (*Crx) 4 Mg/Ml Inj IV PUSH 4 mg Q4H PRN Administration Pain Rated 7-10 Multivitamins/Minerals 1 tablet 07/15/24 09:00 07/16/24 15:06 Opti-Gen Tab PO 1 tablet QAM LENARD Administration Naloxone HCl 0.1 mg 07/16/24 13:27 Naloxone Hcl 0.4 Mg/Ml Vial IV PUSH Q2M PRN Opiate Reversal Ondansetron HCl 4 mg 07/16/24 13:27 Ondansetron Inj 4 Mg/2 Ml Vial IV PUSH Q4H PRN Nausea And Vomiting Pantoprazole Sodium 40 mg 07/15/24 09:00 07/16/24 15:07 Pantoprazole 40 Mg Tablet PO Not Given QAM [facility] Polyethylene Glycol 17 gm 07/17/24 09:00 Polyethylene Glycol 3350 17 Gm Powd.Pack PO QAM [facility] Senna/Docusate Sodium 2 tab 07/16/24 17:00 Senna/Docusate Sodium Tablet PO BID LENARD Trazodone HCl 50 mg 07/16/24 21:00 Trazodone Hcl 50 Mg Tablet PO QHS [facility] Radiology Results: ITS Impressions Intraoperative X-Ray 07/16/24 12:37 IMPRESSION: 1. Fluoroscopy utilized during internal fixation of a distal right fibular fracture which is in near-anatomic alignment. See procedure note for further detail. Labs Labs: Laboratory Results - last 24 hr 07/16/24 05:10 WBC 9.3 RBC 4.19 L Hgb 12.3 Hct 37.7 MCV 90.0 MCH 29.4 MCHC 32.6 RDW 13.3 Plt Count 202 MPV 10.0 Sodium 135 L Potassium 4.1 Chloride 105 Carbon Dioxide 24 Anion Gap 6 BUN 13 Creatinine 0.51 L Estim Creat Clear Calc 86 Estimated GFR > 60 Glucose 114 H Calcium 8.9 Magnesium 1.7 Quality VTE Prophylaxis VTE prophylaxis: mechanical ordered
[2024-07-16] MEDS: SENNA/DOCUSATE SODIUM TABLET 2 TAB PO (17:09)
[2024-07-16] MEDS: traZODone HCL 50 MG TABLET PO (21:31)
[2024-07-17] MEDS: ceFAZolin 2 GM/D5W 50 ML 2 GM/50 ML BAG IVPB ×2 (02:17→09:59)
[2024-07-17 03:12] VITALS: BP 142/54; PULSE 80; RESP 16; TEMP 36.7; O2SAT 96
[2024-07-17] MEDS: LEVOTHYROXINE SODIUM 25 MCG TABLET PO (05:34)
[2024-07-17] MEDS: LEVOTHYROXINE SODIUM 112 MCG TABLET PO (05:34)
[2024-07-17] MEDS: HYDROcodone/acetaminophen (*CRX) 5-325 MG TABLET 1 TAB PO ×4 (05:34→23:01)
[2024-07-17 06:10] LABS: Hematocrit 35.5 % (37.0-47.0); Hemoglobin 11.3 g/dL (12.0-15.0); Mean Corpuscular HGB Conc 31.8 g/dl (32-36); Mean Platelet Volume 10.1 fl (7.4-10.4); Platelet Count Result 212 k/mm3 (150-375); Red Cell Distribution Width 13.2 % (11.5-14.5); White Blood Count 10.4 K/mm3 (4.5-10.0)
[2024-07-17 06:34] LABS: Anion Gap 4 mmol/L (4-12); Blood Urea Nitrogen 18 mg/dL (7-17); Calcium 9.1 mg/dL (8.4-10.2); Carbon Dioxide 29 mmol/L (22-30); Chloride 104 mmol/L (98-107); Estimated CRCL calculation 71 ml/min; Estimated Glomerular Filt Rate > 60; Glucose 124 mg/dL (65-110); Magnesium 1.8 mg/dL (1.6-2.3); Potassium 4.5 mmol/L (3.4-5.0); Sodium 137 mmol/L (137-145)
[2024-07-17 07:12] VITALS: BP 116/63; PULSE 73; RESP 16; TEMP 37; O2SAT 96
[2024-07-17 08:13] VITALS: PULSE 80
[2024-07-17] MEDS: SENNA/DOCUSATE SODIUM TABLET 2 TAB PO ×2 (08:13→17:14)
[2024-07-17] MEDS: PANTOPRAZOLE 40 MG TABLET PO (08:13)
[2024-07-17] MEDS: ASPIRIN 81 MG ENTERIC TABLET PO (08:13)
[2024-07-17] MEDS: ATORVASTATIN 40 MG TABLET PO (08:13)
[2024-07-17] MEDS: METOPROLOL SUCCINATE EXT REL 50 MG TABCR PO (08:13)
[2024-07-17] MEDS: polyethylene glycoL 3350 17 GM POWD.PACK PO (08:14)
[2024-07-17] MEDS: OPTI-GEN TAB 1 TABLET PO (08:14)
--- NOTE | 2024-07-17 09:41 | PM.PNORT ---
Progress Note: A&P Assessment and Plan (1) Fracture of ankle, bimalleolar, right, closed: Qualifiers: Encounter type: initial encounter Qualified Code(s): S82.841A - Displaced bimalleolar fracture of right lower leg, initial encounter for closed fracture Code(s): S82.841A - Displaced bimalleolar fracture of right lower leg, initial encounter for closed fracture Status: Acute Assessment and Plan: POD 1 DOING WELL. CONTINUE PT. AGREE WITH CONTINUING IV ABX. REHAB VS SNF WHEN STABLE PER MEDICINE Subjective Subjective Date/Time Seen: 07/17/24 09:41 Interval history: POD 1 DOING WELL. NO CHEST PAIN OR SOB. NO CALF PAIN. PAIN CONTROLLED Exam Extrem: Other: VSS AFEBRILE DRESSING DRY NV INTACT, TOES PINK AND WARM, THIGH SOFT NON TENDER Objective Data Vital Signs Vital Signs: Vital Signs - 24 hr 07/16/24 12:21 07/16/24 12:30 07/16/24 12:38 Temperature 36.7 C Pulse Rate 82 67 Respiratory Rate 18 16 Blood Pressure 154/66 H 158/62 H Pulse Oximetry 98 100 95 Oxygen Delivery Simple Face Mask Simple Face Mask Room Air Oxygen Flow Rate 8 8 07/16/24 12:45 07/16/24 13:00 07/16/24 13:15 Temperature Pulse Rate 72 68 69 Respiratory Rate 16 14 14 Blood Pressure 138/69 147/66 H 147/57 H Pulse Oximetry 93 96 96 Oxygen Delivery Room Air Room Air Room Air Oxygen Flow Rate 07/16/24 13:50 07/16/24 14:05 07/16/24 14:28 Temperature 36.4 C 36.4 C L Pulse Rate 66 69 Respiratory Rate 17 17 Blood Pressure 146/63 H 151/53 H Pulse Oximetry 96 96 99 Oxygen Delivery Room Air Oxygen Flow Rate 07/16/24 16:00 07/16/24 19:12 07/16/24 23:12 Temperature 37.1 C 36.7 C 36.7 C Pulse Rate 74 89 85 Respiratory Rate 16 16 18 Blood Pressure 157/67 H 149/73 H 132/52 L Pulse Oximetry 97 95 94 Oxygen Delivery Oxygen Flow Rate 07/17/24 03:12 07/17/24 07:12 07/17/24 08:13 Temperature 36.7 C 37.0 C Pulse Rate 80 73 80 Respiratory Rate 16 16 Blood Pressure 142/54 H 116/63 Pulse Oximetry 96 96 Oxygen Delivery Oxygen Flow Rate Intake/Output Intake/Output: Intake & Output 07/14/24 07/15/24 07/16/24 07/17/24 23:59 23:59 23:59 23:59 Intake Total 1446 1590.0 200 Output Total 2200 2925 800 Balance -754 -1335.0 -600 Meds/Results Medications: Active Medications Generic Name Dose Route Start Last Admin Trade Name Freq PRN Reason Stop Dose Admin Acetaminophen 650 mg 07/16/24 13:27 Acetaminophen 325 Mg Tablet PO Q6H PRN Pain Rated 1-3 Hydrocodone Bitart/Acetaminophen 1 tab 07/15/24 02:18 Hydrocodone/Acetaminophen (*Crx) 5-325 Mg Tablet PO Q4H PRN Pain Rated 4-6 Hydrocodone Bitart/Acetaminophen 1 tab 07/16/24 14:00 07/17/24 05:34 Hydrocodone/Acetaminophen (*Crx) 5-325 Mg Tablet PO 1 tab Q8H LENARD Administration Aspirin 81 mg 07/15/24 09:00 07/17/24 08:13 Aspirin 81 Mg Enteric Tablet PO 81 mg DAILY LENARD Administration Atorvastatin Calcium 40 mg 07/15/24 09:00 07/17/24 08:13 Atorvastatin 40 Mg Tablet PO 40 mg DAILY LENARD Administration Diazepam 5 mg 07/16/24 13:27 Diazepam (*Crx) 5 Mg Tablet PO Q8H PRN Muscle Spasm Cefazolin Sodium 2 gm in 50 mls @ 100 mls/hr 07/16/24 18:00 07/17/24 02:17 Ancef 2 Gm/D5w 50 Ml IVPB 07/17/24 10:29 100 mls/hr Q8H LENARD Administration Levothyroxine Sodium 112 mcg 07/15/24 06:30 07/17/24 05:34 Levothyroxine Sodium 112 Mcg Tablet PO 112 mcg DAILY@0630 LENARD Administration Levothyroxine Sodium 25 mcg 07/15/24 06:30 07/17/24 05:34 Levothyroxine Sodium 25 Mcg Tablet PO 25 mcg DAILY@0630 LENARD Administration Metoprolol Succinate 50 mg 07/15/24 09:00 07/17/24 08:13 Metoprolol Succinate Ext Rel 50 Mg Tabcr PO 50 mg DAILY LENARD Administration Morphine Sulfate 4 mg 07/15/24 02:18 07/15/24 21:13 Morphine Sulfate (*Crx) 4 Mg/Ml Inj IV PUSH 4 mg Q4H PRN Administration Pain Rated 7-10 Multivitamins/Minerals 1 tablet 07/15/24 09:00 07/17/24 08:14 Opti-Gen Tab PO 1 tablet QAM LENARD Administration Naloxone HCl 0.1 mg 07/16/24 13:27 Naloxone Hcl 0.4 Mg/Ml Vial IV PUSH Q2M PRN Opiate Reversal Ondansetron HCl 4 mg 07/16/24 13:27 Ondansetron Inj 4 Mg/2 Ml Vial IV PUSH Q4H PRN Nausea And Vomiting Pantoprazole Sodium 40 mg 07/15/24 09:00 07/17/24 08:13 Pantoprazole 40 Mg Tablet PO 40 mg QAM LENARD Administration Polyethylene Glycol 17 gm 07/17/24 09:00 07/17/24 08:14 Polyethylene Glycol 3350 17 Gm Powd.Pack PO 17 gm QAM LENARD Administration Senna/Docusate Sodium 2 tab 07/16/24 17:00 07/17/24 08:13 Senna/Docusate Sodium Tablet PO 2 tab BID LENARD Administration Trazodone HCl 50 mg 07/16/24 21:00 07/16/24 21:31 Trazodone Hcl 50 Mg Tablet PO 50 mg QHS LENARD Administration Radiology Results: ITS Impressions Intraoperative X-Ray 07/16/24 12:37 IMPRESSION: 1. Fluoroscopy utilized during internal fixation of a distal right fibular fracture which is in near-anatomic alignment. See procedure note for further detail. Labs Labs: Laboratory Results - last 24 hr 07/17/24 05:54 WBC 10.4 H RBC 3.90 L Hgb 11.3 L Hct 35.5 L MCV 91.0 MCH 29.0 MCHC 31.8 L RDW 13.2 Plt Count 212 MPV 10.1 Sodium 137 Potassium 4.5 Chloride 104 Carbon Dioxide 29 Anion Gap 4 BUN 18 H Creatinine 0.63 L Estim Creat Clear Calc 71 Estimated GFR > 60 Glucose 124 H Calcium 9.1 Magnesium 1.8
[2024-07-17] MEDS: cefTRIAXone 2 GM/NS 100 ML 2 GM/100 ML BAG IVPB (10:29)
[2024-07-17] MEDS: DOXYCYCLINE 100 MG/NS 100 ML 100 MG/100 ML BAG IVPB ×2 (10:58→20:39)
[2024-07-17 11:12] VITALS: BP 156/56; PULSE 83; RESP 16; TEMP 36.9; O2SAT 95
--- NOTE | 2024-07-17 11:15 | WPDANESPN ---
Anes - Prog Note Post-Op Date/Time: 07/17/24 11:15 Cardiovascular status: normal Respiratory status: normal Airway patency: baseline Mental status: baseline Post-Op hydration status: normal Vital Signs: Last Vital Signs Temp 37.0 C 07/17/24 07:12 Pulse 80 07/17/24 08:13 Resp 16 07/17/24 07:12 BP 116/63 07/17/24 07:12 Pulse Ox 96 07/17/24 07:12 O2 Del Method Room Air 07/17/24 09:21 O2 Flow Rate 8 07/16/24 12:30 Pain Score (VAS): 2 I/O: Intake & Output 07/16/24 07/17/24 07/17/24 23:59 07:59 15:59 Intake Total 840 250 480 Output Total 650 800 Balance 190 -550 480 Laboratory Tests 07/17/24 05:54 07/17/24 05:54 07/17/24 05:54 WBC 10.4 H RBC 3.90 L Hgb 11.3 L Hct 35.5 L MCV 91.0 MCH 29.0 MCHC 31.8 L RDW 13.2 Plt Count 212 MPV 10.1 Sodium 137 Potassium 4.5 Chloride 104 Carbon Dioxide 29 Anion Gap 4 BUN 18 H Creatinine 0.63 L Estim Creat Clear Calc 71 Estimated GFR > 60 Glucose 124 H Calcium 9.1 Magnesium 1.8 Post-procedural complaints: none Patient Feedback: Patient satisfied with anesthetic care.
[2024-07-17 15:12] VITALS: BP 144/55; PULSE 88; RESP 16; TEMP 36.8; O2SAT 95
--- NOTE | 2024-07-17 15:42 | PM.IMPN ---
Progress Note: A&P Assessment and Plan (1) Fracture of ankle, bimalleolar, right, closed: Qualifiers: Encounter type: initial encounter Qualified Code(s): S82.841A - Displaced bimalleolar fracture of right lower leg, initial encounter for closed fracture Code(s): S82.841A - Displaced bimalleolar fracture of right lower leg, initial encounter for closed fracture Status: Acute (2) Mixed hyperlipidemia: Code(s): E78.2 - Mixed hyperlipidemia Status: Acute Plan Patient has Bimalleolar fracture, Patient Rt ankle was splinted at an urgent care, patient stats pain is better when she does not move her ankle, patient was seen by Dr. Medeiros, an orthepedic, recommended surgical intervention to repair the knee, patient will discuss with her and will plan on 07/16 patient was taken to OR and had ORIF of RT ankle, POD # 1 patient stats feels better, today patient surgeon is present in the room, concerned that patient wound was contaminated prior to coming to the ER, the did irrigated the wound well, recommended to antibiotics to prevent any infection, will start patient on ceftriaxone 2gram qd, and Doxycyline 100mg BID, have PT/OT work with patient, patient will benefit going to rehab. Subjective Date/time seen: 07/17/24 15:42 Interval history: Patient has Bimalleolar fracture, Patient Rt ankle was splinted at an urgent care, patient stats pain is better when she does not move her ankle, patient was seen by Dr. Medeiors, an orthepedic, recommended surgical intervention to repair the knee, patient will discuss with her and will plan. on 07/16 patient was taken to OR and had ORIF of RT ankle, POD # 1 patient stats feels better, today patient surgeon is present in the room, concerned that patient wound was contaminated prior to coming to the ER, the did irrigated the wound well, recommended to antibiotics to prevent any infection, will start patient on ceftriaxone 2gram qd, and Doxycyline 100mg BID, have PT/OT work with patient, patient will benefit going to rehab. Review of Systems Constitutional: Constitutional: Denies fever(s) Eyes: Eyes: Denies blurry vision ENT: Reports Normal hearing present Cardiovascular: Cardiovascular: Denies chest pain and Denies dyspnea Respiratory: Respiratory: Denies dyspnea and Denies wheezing Gastrointestinal: Gastrointestinal: Denies abdominal pain Genitourinary: Genitourinary: Denies urinary urgency Musculoskeletal: Musculoskeletal: Reports as per HPI and Denies numbness Integumentary/Breasts: Skin/Breast: Denies changing lesions and Denies sores Neurologic: Reports Normal hearing present, Denies behavioral changes, Denies confusion, Denies numbness and Denies convulsions Psychiatric: Psychiatric: Denies behavioral changes, Denies confusion and Denies hallucinations Endocrine: Endocrine: Denies heat intolerance Hematologic/Lymphatic: Hematologic/Lymphatic: Denies easy bleeding Allergic/Immunologic: Allergic/Immunologic: Denies wheezing Exam Narrative: Patient is comfortable, NAD HEENT: eyes are clear and none icteric LUNGS:CTA HEART: RR S1S2 ABD: BS+, Soft and nontender Lower extremities: no edema RT lower extremity in the splint SKIN: nonjaundiced Neuro: grossly intact. Const: General: No confusion Orientation/consciousness: No confusion Neuro: General: No confusion Cranial nerves: Yes Normal hearing present Objective Data Vital Signs Vital Signs: Vital Signs - 24 hr 07/16/24 16:00 07/16/24 19:12 07/16/24 23:12 Temperature 37.1 C 36.7 C 36.7 C Pulse Rate 74 89 85 Respiratory Rate 16 16 18 Blood Pressure 157/67 H 149/73 H 132/52 L Pulse Oximetry 97 95 94 Oxygen Delivery 07/17/24 03:12 07/17/24 07:12 07/17/24 08:00 Temperature 36.7 C 37.0 C Pulse Rate 80 73 Respiratory Rate 16 16 Blood Pressure 142/54 H 116/63 Pulse Oximetry 96 96 Oxygen Delivery Room Air 07/17/24 08:13 07/17/24 09:21 07/17/24 11:12 Temperature 36.9 C Pulse Rate 80 83 Respiratory Rate 16 Blood Pressure 156/56 H Pulse Oximetry 95 Oxygen Delivery Room Air Intake/Output Intake/Output: Intake & Output 07/14/24 07/15/24 07/16/24 07/17/24 23:59 23:59 23:59 23:59 Intake Total 1446 1590.0 970 Output Total 2200 2925 800 Balance -754 -1335.0 170 Meds/Results Medications: Active Medications Generic Name Dose Route Start Last Admin Trade Name Freq PRN Reason Stop Dose Admin Acetaminophen 650 mg 07/16/24 13:27 Acetaminophen 325 Mg Tablet PO Q6H PRN Pain Rated 1-3 Hydrocodone Bitart/Acetaminophen 1 tab 07/15/24 02:18 Hydrocodone/Acetaminophen (*Crx) 5-325 Mg Tablet PO Q4H PRN Pain Rated 4-6 Hydrocodone Bitart/Acetaminophen 1 tab 07/16/24 14:00 07/17/24 13:57 Hydrocodone/Acetaminophen (*Crx) 5-325 Mg Tablet PO 1 tab Q8H LENARD Administration Aspirin 81 mg 07/15/24 09:00 07/17/24 08:13 Aspirin 81 Mg Enteric Tablet PO 81 mg DAILY LENARD Administration Atorvastatin Calcium 40 mg 07/15/24 09:00 07/17/24 08:13 Atorvastatin 40 Mg Tablet PO 40 mg DAILY LENARD Administration Diazepam 5 mg 07/16/24 13:27 Diazepam (*Crx) 5 Mg Tablet PO Q8H PRN Muscle Spasm Ceftriaxone Sodium 2 gm in 100 mls @ 200 mls/hr 07/17/24 09:55 07/17/24 10:29 Rocephin 2 Gm/Ns 100 Ml IVPB 200 mls/hr QAM LENARD Administration Doxycycline Hyclate 100 mg in 100 mls @ 100 mls/hr 07/17/24 10:10 07/17/24 10:58 Vibramycin 100 Mg/Ns 100 Ml IVPB 100 mls/hr Q12HR LENARD Administration Levothyroxine Sodium 112 mcg 07/15/24 06:30 07/17/24 05:34 Levothyroxine Sodium 112 Mcg Tablet PO 112 mcg DAILY@0630 LENARD Administration Levothyroxine Sodium 25 mcg 07/15/24 06:30 07/17/24 05:34 Levothyroxine Sodium 25 Mcg Tablet PO 25 mcg DAILY@0630 LENARD Administration Metoprolol Succinate 50 mg 07/15/24 09:00 07/17/24 08:13 Metoprolol Succinate Ext Rel 50 Mg Tabcr PO 50 mg DAILY LENARD Administration Morphine Sulfate 4 mg 07/15/24 02:18 07/15/24 21:13 Morphine Sulfate (*Crx) 4 Mg/Ml Inj IV PUSH 4 mg Q4H PRN Administration Pain Rated 7-10 Multivitamins/Minerals 1 tablet 07/15/24 09:00 07/17/24 08:14 Opti-Gen Tab PO 1 tablet QAM LENARD Administration Naloxone HCl 0.1 mg 07/16/24 13:27 Naloxone Hcl 0.4 Mg/Ml Vial IV PUSH Q2M PRN Opiate Reversal Ondansetron HCl 4 mg 07/16/24 13:27 Ondansetron Inj 4 Mg/2 Ml Vial IV PUSH Q4H PRN Nausea And Vomiting Pantoprazole Sodium 40 mg 07/15/24 09:00 07/17/24 08:13 Pantoprazole 40 Mg Tablet PO 40 mg QAM LENARD Administration Polyethylene Glycol 17 gm 07/17/24 09:00 07/17/24 08:14 Polyethylene Glycol 3350 17 Gm Powd.Pack PO 17 gm QAM LENARD Administration Senna/Docusate Sodium 2 tab 07/16/24 17:00 07/17/24 08:13 Senna/Docusate Sodium Tablet PO 2 tab BID LENARD Administration Trazodone HCl 50 mg 07/16/24 21:00 07/16/24 21:31 Trazodone Hcl 50 Mg Tablet PO 50 mg QHS LENARD Administration Radiology Results: ITS Impressions Intraoperative X-Ray 07/16/24 12:37 IMPRESSION: 1. Fluoroscopy utilized during internal fixation of a distal right fibular fracture which is in near-anatomic alignment. See procedure note for further detail. Labs Labs: Laboratory Results - last 24 hr 07/17/24 05:54 WBC 10.4 H RBC 3.90 L Hgb 11.3 L Hct 35.5 L MCV 91.0 MCH 29.0 MCHC 31.8 L RDW 13.2 Plt Count 212 MPV 10.1 Sodium 137 Potassium 4.5 Chloride 104 Carbon Dioxide 29 Anion Gap 4 BUN 18 H Creatinine 0.63 L Estim Creat Clear Calc 71 Estimated GFR > 60 Glucose 124 H Calcium 9.1 Magnesium 1.8 Quality VTE Prophylaxis VTE prophylaxis: mechanical ordered
[2024-07-17 21:27] VITALS: BP 134/73; PULSE 95; RESP 20; TEMP 37.1; O2SAT 97
[2024-07-17] MEDS: traZODone HCL 50 MG TABLET PO (22:09)
[2024-07-18] MEDS: LEVOTHYROXINE SODIUM 112 MCG TABLET PO (05:38)
[2024-07-18] MEDS: LEVOTHYROXINE SODIUM 25 MCG TABLET PO (05:38)
[2024-07-18 05:45] VITALS: BP 156/65; PULSE 84; RESP 18; TEMP 36.3; O2SAT 96
[2024-07-18 06:08] LABS: Hematocrit 36.6 % (37.0-47.0); Hemoglobin 11.7 g/dL (12.0-15.0); Mean Corpuscular Hemoglobin 29.2 pg (26-34); Mean Corpuscular Volume 91.3 fl (80-100); Mean Platelet Volume 10.2 fl (7.4-10.4); Platelet Count Result 232 k/mm3 (150-375); Red Blood Count 4.01 M/mm3 (4.2-5.4); Red Cell Distribution Width 13.4 % (11.5-14.5); White Blood Count 9.7 K/mm3 (4.5-10.0)
[2024-07-18 06:29] LABS: Anion Gap 3 mmol/L (4-12); Blood Urea Nitrogen 18 mg/dL (7-17); Carbon Dioxide 29 mmol/L (22-30); Chloride 105 mmol/L (98-107); Estimated CRCL calculation 72 ml/min; Estimated Glomerular Filt Rate > 60; Glucose 111 mg/dL (65-110); Magnesium 1.6 mg/dL (1.6-2.3); Potassium 4.4 mmol/L (3.4-5.0); Sodium 137 mmol/L (137-145)
[2024-07-18] MEDS: HYDROcodone/acetaminophen (*CRX) 5-325 MG TABLET 1 TAB PO ×3 (07:00→20:33)
[2024-07-18] MEDS: cefTRIAXone 2 GM/NS 100 ML 2 GM/100 ML BAG IVPB (08:35)
[2024-07-18 08:37] VITALS: PULSE 80
[2024-07-18] MEDS: DOXYCYCLINE 100 MG/NS 100 ML 100 MG/100 ML BAG IVPB (08:37)
[2024-07-18] MEDS: PANTOPRAZOLE 40 MG TABLET PO (08:37)
[2024-07-18] MEDS: ASPIRIN 81 MG ENTERIC TABLET PO (08:37)
[2024-07-18] MEDS: MAGNESIUM OXIDE 400 MG TABLET PO (08:37)
[2024-07-18] MEDS: METOPROLOL SUCCINATE EXT REL 50 MG TABCR PO (08:37)
[2024-07-18] MEDS: OPTI-GEN TAB 1 TABLET PO (08:37)
[2024-07-18] MEDS: polyethylene glycoL 3350 17 GM POWD.PACK PO (08:38)
[2024-07-18] MEDS: SENNA/DOCUSATE SODIUM TABLET 2 TAB PO ×2 (08:38→17:01)
[2024-07-18] MEDS: ATORVASTATIN 40 MG TABLET PO (08:38)
[2024-07-18] MEDS: diphenhydrAMINE HCl CAP 25 MG CAPSULE PO (11:26)
--- NOTE | 2024-07-18 12:53 | PM.IMPN ---
Progress Note: A&P Assessment and Plan (1) Fracture of ankle, bimalleolar, right, closed: Qualifiers: Encounter type: initial encounter Qualified Code(s): S82.841A - Displaced bimalleolar fracture of right lower leg, initial encounter for closed fracture Code(s): S82.841A - Displaced bimalleolar fracture of right lower leg, initial encounter for closed fracture Status: Acute (2) Mixed hyperlipidemia: Code(s): E78.2 - Mixed hyperlipidemia Status: Acute Plan Patient has Bimalleolar fracture, Patient Rt ankle was splinted at an urgent care, patient stats pain is better when she does not move her ankle, patient was seen by Dr. Medeiros, an orthepedic, recommended surgical intervention to repair the knee, patient will discuss with her and will plan on 07/16 patient was taken to OR and had ORIF of RT ankle, POD # 2 patient stats feels better, today patient surgeon is present in the room, concerned that patient wound was contaminated prior to coming to the ER, the did irrigated the wound well, recommended to antibiotics to prevent any infection, will start patient on ceftriaxone 2gram qd, and Doxycyline 100mg BID, have PT/OT work with patient, patient will benefit going to rehab. patient remains clinically stable, working with PT, patient has slight allergic rash possibly likely 2/2 abx, will give Benadryl and monitor. Subjective Date/time seen: 07/18/24 12:53 Interval history: Patient has Bimalleolar fracture, Patient Rt ankle was splinted at an urgent care, patient stats pain is better when she does not move her ankle, patient was seen by Dr. Medeiros, an orthepedic, recommended surgical intervention to repair the knee, patient will discuss with her and will plan. on 07/16 patient was taken to OR and had ORIF of RT ankle, POD # 2 patient stats feels better, today patient surgeon is present in the room, concerned that patient wound was contaminated prior to coming to the ER, the did irrigated the wound well, recommended to antibiotics to prevent any infection, will start patient on ceftriaxone 2gram qd, and Doxycyline 100mg BID, have PT/OT work with patient, patient will benefit going to rehab. patient remains clinically stable, working with PT, patient has slight allergic rash possibly likely 2/2 abx, will give Benadryl and monitor. Review of Systems Constitutional: Constitutional: Denies fever(s) Eyes: Eyes: Denies blurry vision ENT: Reports Normal hearing present Cardiovascular: Cardiovascular: Denies chest pain and Denies dyspnea Respiratory: Respiratory: Denies dyspnea and Denies wheezing Gastrointestinal: Gastrointestinal: Denies abdominal pain Genitourinary: Genitourinary: Denies urinary urgency Musculoskeletal: Musculoskeletal: Reports as per HPI and Denies numbness Integumentary/Breasts: Skin/Breast: Denies changing lesions and Denies sores Neurologic: Reports Normal hearing present, Denies behavioral changes, Denies confusion, Denies numbness and Denies convulsions Psychiatric: Psychiatric: Denies behavioral changes, Denies confusion and Denies hallucinations Endocrine: Endocrine: Denies heat intolerance Hematologic/Lymphatic: Hematologic/Lymphatic: Denies easy bleeding Allergic/Immunologic: Allergic/Immunologic: Denies wheezing Exam Narrative: Patient is comfortable, NAD HEENT: eyes are clear and none icteric LUNGS:CTA HEART: RR S1S2 ABD: BS+, Soft and nontender Lower extremities: no edema RT lower extremity in the splint SKIN: nonjaundiced Neuro: grossly intact. Objective Data Vital Signs Vital Signs: Vital Signs - 24 hr 07/17/24 13:23 07/17/24 15:12 07/17/24 21:27 Temperature 36.8 C 37.1 C Pulse Rate 88 95 Respiratory Rate 16 20 Blood Pressure 144/55 H 134/73 Pulse Oximetry 95 97 Oxygen Delivery Room Air 07/18/24 05:45 07/18/24 08:37 Temperature 36.3 C L Pulse Rate 84 80 Respiratory Rate 18 Blood Pressure 156/65 H Pulse Oximetry 96 Oxygen Delivery Intake/Output Intake/Output: Intake & Output 07/15/24 07/16/24 07/17/24 07/18/24 23:59 23:59 23:59 23:59 Intake Total 1446 1590.0 2060 590 Output Total 2200 2925 1750 950 Balance -754 -1335.0 310 -360 Meds/Results Medications: Active Medications Generic Name Dose Route Start Last Admin Trade Name Freq PRN Reason Stop Dose Admin Acetaminophen 650 mg 07/16/24 13:27 Acetaminophen 325 Mg Tablet PO Q6H PRN Pain Rated 1-3 Hydrocodone Bitart/Acetaminophen 1 tab 07/15/24 02:18 07/17/24 20:37 Hydrocodone/Acetaminophen (*Crx) 5-325 Mg Tablet PO 1 tab Q4H PRN Administration Pain Rated 4-6 Hydrocodone Bitart/Acetaminophen 1 tab 07/16/24 14:00 07/18/24 07:00 Hydrocodone/Acetaminophen (*Crx) 5-325 Mg Tablet PO 1 tab Q8H LENARD Administration Aspirin 81 mg 07/15/24 09:00 07/18/24 08:37 Aspirin 81 Mg Enteric Tablet PO 81 mg DAILY LENARD Administration Atorvastatin Calcium 40 mg 07/15/24 09:00 07/18/24 08:38 Atorvastatin 40 Mg Tablet PO 40 mg DAILY LENARD Administration Diazepam 5 mg 07/16/24 13:27 Diazepam (*Crx) 5 Mg Tablet PO Q8H PRN Muscle Spasm Diphenhydramine HCl 25 mg 07/18/24 10:38 07/18/24 11:26 Diphenhydramine Hcl Cap 25 Mg Capsule PO 25 mg Q6H PRN Administration Itching Ceftriaxone Sodium 2 gm in 100 mls @ 200 mls/hr 07/17/24 09:55 07/18/24 08:35 Rocephin 2 Gm/Ns 100 Ml IVPB 200 mls/hr QAM LENARD Administration Doxycycline Hyclate 100 mg in 100 mls @ 100 mls/hr 07/17/24 10:10 07/18/24 08:37 Vibramycin 100 Mg/Ns 100 Ml IVPB 100 mls/hr Q12HR LENARD Administration Levothyroxine Sodium 112 mcg 07/15/24 06:30 07/18/24 05:38 Levothyroxine Sodium 112 Mcg Tablet PO 112 mcg DAILY@0630 LENARD Administration Levothyroxine Sodium 25 mcg 07/15/24 06:30 07/18/24 05:38 Levothyroxine Sodium 25 Mcg Tablet PO 25 mcg DAILY@0630 LENARD Administration Magnesium Oxide 400 mg 07/18/24 09:00 07/18/24 08:37 Magnesium Oxide 400 Mg Tablet PO 400 mg QAM LENARD Administration Metoprolol Succinate 50 mg 07/15/24 09:00 07/18/24 08:37 Metoprolol Succinate Ext Rel 50 Mg Tabcr PO 50 mg DAILY LENARD Administration Morphine Sulfate 4 mg 07/15/24 02:18 07/15/24 21:13 Morphine Sulfate (*Crx) 4 Mg/Ml Inj IV PUSH 4 mg Q4H PRN Administration Pain Rated 7-10 Multivitamins/Minerals 1 tablet 07/15/24 09:00 07/18/24 08:37 Opti-Gen Tab PO 1 tablet QAM LENARD Administration Naloxone HCl 0.1 mg 07/16/24 13:27 Naloxone Hcl 0.4 Mg/Ml Vial IV PUSH Q2M PRN Opiate Reversal Ondansetron HCl 4 mg 07/16/24 13:27 Ondansetron Inj 4 Mg/2 Ml Vial IV PUSH Q4H PRN Nausea And Vomiting Pantoprazole Sodium 40 mg 07/15/24 09:00 07/18/24 08:37 Pantoprazole 40 Mg Tablet PO 40 mg QAM LENARD Administration Polyethylene Glycol 17 gm 07/17/24 09:00 07/18/24 08:38 Polyethylene Glycol 3350 17 Gm Powd.Pack PO 17 gm QAM LENARD Administration Senna/Docusate Sodium 2 tab 07/16/24 17:00 07/18/24 08:38 Senna/Docusate Sodium Tablet PO 2 tab BID LENARD Administration Trazodone HCl 50 mg 07/16/24 21:00 07/17/24 22:09 Trazodone Hcl 50 Mg Tablet PO 50 mg QHS LENARD Administration Radiology Results: ITS Impressions Intraoperative X-Ray 07/16/24 12:37 IMPRESSION: 1. Fluoroscopy utilized during internal fixation of a distal right fibular fracture which is in near-anatomic alignment. See procedure note for further detail. Labs Labs: Laboratory Results - last 24 hr 07/18/24 05:41 WBC 9.7 RBC 4.01 L Hgb 11.7 L Hct 36.6 L MCV 91.3 MCH 29.2 MCHC 32.0 RDW 13.4 Plt Count 232 MPV 10.2 Sodium 137 Potassium 4.4 Chloride 105 Carbon Dioxide 29 Anion Gap 3 L BUN 18 H Creatinine 0.62 L Estim Creat Clear Calc 72 Estimated GFR > 60 Glucose 111 H Calcium 9.0 Magnesium 1.6 Quality VTE Prophylaxis VTE prophylaxis: mechanical ordered
[2024-07-18 14:00] VITALS: BP 141/72; PULSE 119; RESP 22; TEMP 36.9; O2SAT 94
[2024-07-18] MEDS: AMOXICILLIN/CLAVULANATE K 500-125 MG TAB 1 TABLET PO ×2 (15:02→20:59)
--- NOTE | 2024-07-18 19:24 | PC.NURSE ---
On 07/18/24, the MANAGER OF BUSINESS OPERATIONS, [Olivia Beckett], provided care and completed [facility] documentation on this patient. I have reviewed the MANAGER OF BUSINESS OPERATIONS's documentation and agree with the findings.
[2024-07-18 20:00] VITALS: PULSE 110; RESP 16; O2SAT 95
[2024-07-18 20:21] VITALS: BP 154/63; PULSE 110; RESP 16; TEMP 36.5; O2SAT 95
[2024-07-18] MEDS: traZODone HCL 50 MG TABLET PO (20:33)
[2024-07-18] MEDS: DOXYCYCLINE HYCLATE 100 MG TABLET PO (20:33)
[2024-07-19] MEDS: LEVOTHYROXINE SODIUM 112 MCG TABLET PO (05:36)
[2024-07-19] MEDS: AMOXICILLIN/CLAVULANATE K 500-125 MG TAB 1 TABLET PO ×3 (05:36→21:00)
[2024-07-19] MEDS: LEVOTHYROXINE SODIUM 25 MCG TABLET PO (05:36)
[2024-07-19] MEDS: HYDROcodone/acetaminophen (*CRX) 5-325 MG TABLET 1 TAB PO ×3 (05:37→21:00)
[2024-07-19 05:43] VITALS: BP 152/64; PULSE 103; RESP 16; TEMP 36.1; O2SAT 93
[2024-07-19 06:02] LABS: Hematocrit 36.7 % (37.0-47.0); Hemoglobin 11.7 g/dL (12.0-15.0); Mean Corpuscular HGB Conc 31.9 g/dl (32-36); Mean Corpuscular Volume 91.1 fl (80-100); Mean Platelet Volume 9.9 fl (7.4-10.4); Platelet Count Result 241 k/mm3 (150-375); Red Blood Count 4.03 M/mm3 (4.2-5.4); Red Cell Distribution Width 13.4 % (11.5-14.5); White Blood Count 10.1 K/mm3 (4.5-10.0)
[2024-07-19 06:25] LABS: Anion Gap 5 mmol/L (4-12); Blood Urea Nitrogen 15 mg/dL (7-17); Calcium 9.2 mg/dL (8.4-10.2); Carbon Dioxide 26 mmol/L (22-30); Chloride 105 mmol/L (98-107); Estimated CRCL calculation 83 ml/min; Estimated Glomerular Filt Rate > 60; Glucose 111 mg/dL (65-110); Magnesium 1.7 mg/dL (1.6-2.3); Potassium 4.4 mmol/L (3.4-5.0); Sodium 136 mmol/L (137-145)
--- NOTE | 2024-07-19 06:35 | PC.NURSE ---
Home meds were returned 07/18 to patient's to take them home, per request.
[2024-07-19] MEDS: polyethylene glycoL 3350 17 GM POWD.PACK PO (08:39)
[2024-07-19] MEDS: SENNA/DOCUSATE SODIUM TABLET 2 TAB PO ×2 (08:39→17:18)
[2024-07-19] MEDS: MAGNESIUM OXIDE 400 MG TABLET PO (08:39)
[2024-07-19] MEDS: PANTOPRAZOLE 40 MG TABLET PO (08:39)
[2024-07-19 08:40] VITALS: PULSE 74
[2024-07-19] MEDS: DOXYCYCLINE HYCLATE 100 MG TABLET PO ×2 (08:40→21:00)
[2024-07-19] MEDS: OPTI-GEN TAB 1 TABLET PO (08:40)
[2024-07-19] MEDS: ATORVASTATIN 40 MG TABLET PO (08:40)
[2024-07-19] MEDS: METOPROLOL SUCCINATE EXT REL 50 MG TABCR PO (08:40)
[2024-07-19] MEDS: ASPIRIN 81 MG ENTERIC TABLET PO (08:40)
--- NOTE | 2024-07-19 09:44 | PCPTNOTE ---
Attempted to see patient for PT, however patient refused due to just eating breakfast and patient wanted to wait to do therapy after just eating.
[2024-07-19] MEDS: diphenhydrAMINE HCl CAP 25 MG CAPSULE PO ×2 (11:15→23:43)
[2024-07-19 14:00] VITALS: BP 129/86; BP 167/73; PULSE 91; RESP 22; TEMP 36.5; O2SAT 90
--- NOTE | 2024-07-19 16:24 | PM.IMPN ---
Progress Note: A&P Assessment and Plan (1) Fracture of ankle, bimalleolar, right, closed: Qualifiers: Encounter type: initial encounter Qualified Code(s): S82.841A - Displaced bimalleolar fracture of right lower leg, initial encounter for closed fracture Code(s): S82.841A - Displaced bimalleolar fracture of right lower leg, initial encounter for closed fracture Status: Acute (2) Mixed hyperlipidemia: Code(s): E78.2 - Mixed hyperlipidemia Status: Acute Plan Patient has Bimalleolar fracture, Patient Rt ankle was splinted at an urgent care, patient stats pain is better when she does not move her ankle, patient was seen by Dr. Medeiros, an orthepedic, recommended surgical intervention to repair the knee, patient will discuss with her and will plan on 07/16 patient was taken to OR and had ORIF of RT ankle, POD # 3 patient stats feels better, on 07/17 patient surgeon was present in the room, concerned that patient wound was contaminated prior to coming to the ER, he did irrigated the wound well, recommended to antibiotics to prevent any infection, started patient on ceftriaxone 2gram qd, and Doxycyline 100mg BID, however was not able to tolerate IV antibiotics so switched patient to oral abx, have PT/OT work with patient, patient will benefit going to rehab. patient remains clinically stable, working with PT, patient has slight allergic rash possibly likely 2/2 abx, gave Benadryl and monitor. Subjective Date/time seen: 07/19/24 16:24 Interval history: Patient has Bimalleolar fracture, Patient Rt ankle was splinted at an urgent care, patient stats pain is better when she does not move her ankle, patient was seen by Dr. Medeiros, an orthepedic, recommended surgical intervention to repair the knee, patient will discuss with her and will plan. on 07/16 patient was taken to OR and had ORIF of RT ankle, POD # 3 patient stats feels better, on 07/17 patient surgeon was present in the room, concerned that patient wound was contaminated prior to coming to the ER, he did irrigated the wound well, recommended to antibiotics to prevent any infection, started patient on ceftriaxone 2gram qd, and Doxycyline 100mg BID, however was not able to tolerate IV antibiotics so switched patient to oral abx, have PT/OT work with patient, patient will benefit going to rehab. patient remains clinically stable, working with PT, patient has slight allergic rash possibly likely 2/2 abx, gave Benadryl and monitor. Exam Narrative: Patient is comfortable, NAD HEENT: eyes are clear and none icteric LUNGS:CTA HEART: RR S1S2 ABD: BS+, Soft and nontender Lower extremities: no edema RT lower extremity in the splint SKIN: nonjaundiced Neuro: grossly intact. Objective Data Vital Signs Vital Signs: Vital Signs - 24 hr 07/18/24 20:00 07/18/24 20:21 07/19/24 05:43 Temperature 36.5 C 36.1 C L Pulse Rate 110 H 110 H 103 H Respiratory Rate 16 16 16 Blood Pressure 154/63 H 152/64 H Pulse Oximetry 95 95 93 Oxygen Delivery Room Air 07/19/24 08:00 07/19/24 08:40 07/19/24 14:00 Temperature 36.5 C Pulse Rate 74 91 Respiratory Rate 22 H Blood Pressure 167/73 H Pulse Oximetry 90 Oxygen Delivery Room Air 07/19/24 14:00 Temperature Pulse Rate Respiratory Rate Blood Pressure 129/86 Pulse Oximetry Oxygen Delivery Intake/Output Intake/Output: Intake & Output 07/16/24 07/17/24 07/18/24 07/19/24 23:59 23:59 23:59 23:59 Intake Total 1590.0 2060 2170 360 Output Total 2925 1750 2250 500 Balance -1335.0 310 -80 -140 Meds/Results Medications: Active Medications Generic Name Dose Route Start Last Admin Trade Name Jordonq PRN Reason Stop Dose Admin Acetaminophen 650 mg 07/16/24 13:27 Acetaminophen 325 Mg Tablet PO Q6H PRN Pain Rated 1-3 Hydrocodone Bitart/Acetaminophen 1 tab 07/15/24 02:18 07/18/24 20:33 Hydrocodone/Acetaminophen (*Crx) 5-325 Mg Tablet PO 1 tab Q4H PRN Administration Pain Rated 4-6 Hydrocodone Bitart/Acetaminophen 1 tab 07/16/24 14:00 07/19/24 13:26 Hydrocodone/Acetaminophen (*Crx) 5-325 Mg Tablet PO 1 tab Q8H LENARD Administration Amoxicillin/Clavulanate Potassium 1 tablet 07/18/24 14:00 07/19/24 13:25 Amoxicillin/Clavulanate K 500-125 Mg Tab PO 1 tablet Q8HR LENARD Administration Aspirin 81 mg 07/15/24 09:00 07/19/24 08:40 Aspirin 81 Mg Enteric Tablet PO 81 mg DAILY LENARD Administration Atorvastatin Calcium 40 mg 07/15/24 09:00 07/19/24 08:40 Atorvastatin 40 Mg Tablet PO 40 mg DAILY LENARD Administration Diazepam 5 mg 07/16/24 13:27 Diazepam (*Crx) 5 Mg Tablet PO Q8H PRN Muscle Spasm Diphenhydramine HCl 25 mg 07/18/24 10:38 07/19/24 11:15 Diphenhydramine Hcl Cap 25 Mg Capsule PO 25 mg Q6H PRN Administration Itching Doxycycline Hyclate 100 mg 07/18/24 21:00 07/19/24 08:40 Doxycycline Hyclate 100 Mg Tablet PO 100 mg Q12HR LENARD Administration Levothyroxine Sodium 112 mcg 07/15/24 06:30 07/19/24 05:36 Levothyroxine Sodium 112 Mcg Tablet PO 112 mcg DAILY@0630 LENARD Administration Levothyroxine Sodium 25 mcg 07/15/24 06:30 07/19/24 05:36 Levothyroxine Sodium 25 Mcg Tablet PO 25 mcg DAILY@0630 [facility] Administration Magnesium Oxide 400 mg 07/18/24 09:00 07/19/24 08:39 Magnesium Oxide 400 Mg Tablet PO 400 mg QAM [facility] Administration Metoprolol Succinate 50 mg 07/15/24 09:00 07/19/24 08:40 Metoprolol Succinate Ext Rel 50 Mg Tabcr PO 50 mg DAILY [facility] Administration Morphine Sulfate 4 mg 07/15/24 02:18 07/15/24 21:13 Morphine Sulfate (*Crx) 4 Mg/Ml Inj IV PUSH 4 mg Q4H PRN Administration Pain Rated 7-10 Multivitamins/Minerals 1 tablet 07/15/24 09:00 07/19/24 08:40 Opti-Gen Tab PO 1 tablet QAM [facility] Administration Naloxone HCl 0.1 mg 07/16/24 13:27 Naloxone Hcl 0.4 Mg/Ml Vial IV PUSH Q2M PRN Opiate Reversal Ondansetron HCl 4 mg 07/16/24 13:27 Ondansetron Inj 4 Mg/2 Ml Vial IV PUSH Q4H PRN Nausea And Vomiting Pantoprazole Sodium 40 mg 07/15/24 09:00 07/19/24 08:39 Pantoprazole 40 Mg Tablet PO 40 mg QAM LENARD Administration Polyethylene Glycol 17 gm 07/17/24 09:00 07/19/24 08:39 Polyethylene Glycol 3350 17 Gm Powd.Pack PO 17 gm QAM LENARD Administration Senna/Docusate Sodium 2 tab 07/16/24 17:00 07/19/24 08:39 Senna/Docusate Sodium Tablet PO 2 tab BID LENARD Administration Trazodone HCl 50 mg 07/16/24 21:00 07/18/24 20:33 Trazodone Hcl 50 Mg Tablet PO 50 mg QHS LENARD Administration Radiology Results: ITS Impressions Intraoperative X-Ray 07/16/24 12:37 IMPRESSION: 1. Fluoroscopy utilized during internal fixation of a distal right fibular fracture which is in near-anatomic alignment. See procedure note for further detail. Labs Labs: Laboratory Results - last 24 hr 07/19/24 05:18 WBC 10.1 H RBC 4.03 L Hgb 11.7 L Hct 36.7 L MCV 91.1 MCH 29.0 MCHC 31.9 L RDW 13.4 Plt Count 241 MPV 9.9 Sodium 136 L Potassium 4.4 Chloride 105 Carbon Dioxide 26 Anion Gap 5 BUN 15 Creatinine 0.53 L Estim Creat Clear Calc 83 Estimated GFR > 60 Glucose 111 H Calcium 9.2 Magnesium 1.7
[2024-07-19] MEDS: traZODone HCL 50 MG TABLET PO (21:00)
[2024-07-19 21:23] VITALS: BP 155/65; PULSE 88; RESP 14; TEMP 36.4; O2SAT 95
[2024-07-20] MEDS: LEVOTHYROXINE SODIUM 25 MCG TABLET PO (05:08)
[2024-07-20] MEDS: LEVOTHYROXINE SODIUM 112 MCG TABLET PO (05:09)
[2024-07-20] MEDS: HYDROcodone/acetaminophen (*CRX) 5-325 MG TABLET 1 TAB PO (05:09)
[2024-07-20] MEDS: AMOXICILLIN/CLAVULANATE K 500-125 MG TAB 1 TABLET PO (05:09)
[2024-07-20 05:35] VITALS: BP 152/67; PULSE 98; RESP 14; TEMP 36.2; O2SAT 92
[2024-07-20 05:56] LABS: Hematocrit 36.5 % (37.0-47.0); Hemoglobin 11.6 g/dL (12.0-15.0); Mean Corpuscular HGB Conc 31.8 g/dl (32-36); Mean Corpuscular Volume 91.3 fl (80-100); Mean Platelet Volume 9.7 fl (7.4-10.4); Platelet Count Result 245 k/mm3 (150-375); Red Cell Distribution Width 13.3 % (11.5-14.5); White Blood Count 9.1 K/mm3 (4.5-10.0)
[2024-07-20 06:16] LABS: Anion Gap 5 mmol/L (4-12); Blood Urea Nitrogen 14 mg/dL (7-17); Calcium 9.3 mg/dL (8.4-10.2); Carbon Dioxide 27 mmol/L (22-30); Chloride 104 mmol/L (98-107); Estimated CRCL calculation 77 ml/min; Estimated Glomerular Filt Rate > 60; Glucose 108 mg/dL (65-110); Magnesium 1.8 mg/dL (1.6-2.3); Potassium 4.2 mmol/L (3.4-5.0); Sodium 136 mmol/L (137-145)
[2024-07-20 08:40] VITALS: PULSE 93
[2024-07-20] MEDS: MAGNESIUM OXIDE 400 MG TABLET PO (08:40)
[2024-07-20] MEDS: SENNA/DOCUSATE SODIUM TABLET 2 TAB PO (08:40)
[2024-07-20] MEDS: polyethylene glycoL 3350 17 GM POWD.PACK PO (08:40)
[2024-07-20] MEDS: METOPROLOL SUCCINATE EXT REL 50 MG TABCR PO (08:40)
[2024-07-20] MEDS: PANTOPRAZOLE 40 MG TABLET PO (08:40)
[2024-07-20] MEDS: ATORVASTATIN 40 MG TABLET PO (08:40)
[2024-07-20] MEDS: ASPIRIN 81 MG ENTERIC TABLET PO (08:40)
[2024-07-20] MEDS: DOXYCYCLINE HYCLATE 100 MG TABLET PO (08:43)
[2024-07-20] MEDS: OPTI-GEN TAB 1 TABLET PO (08:44)
--- NOTE | 2024-07-20 10:04 | PM.DS ---
DS: Admitting Diagnosis Discharge Date Admitting Diagnosis Extremity Injury, Lower Rt ankle fracture DS: Discharge Diagnosis Discharge Diagnosis (1) Fracture of ankle, bimalleolar, right, closed: Qualifiers: Encounter type: initial encounter Qualified Code(s): S82.841A - Displaced bimalleolar fracture of right lower leg, initial encounter for closed fracture Code(s): S82.841A - Displaced bimalleolar fracture of right lower leg, initial encounter for closed fracture Status: Acute (2) Mixed hyperlipidemia: Code(s): E78.2 - Mixed hyperlipidemia Status: Acute Plan Patient has Bimalleolar fracture, Patient Rt ankle was splinted at an urgent care, patient stats pain is better when she does not move her ankle, patient was seen by Dr. Medeiros, an orthepedic, recommended surgical intervention to repair the knee, patient will discuss with her and will plan on 07/16 patient was taken to OR and had ORIF of RT ankle, POD # 3 patient stats feels better, on 07/17 patient surgeon was present in the room, concerned that patient wound was contaminated prior to coming to the ER, he did irrigated the wound well, recommended to antibiotics to prevent any infection, started patient on ceftriaxone 2gram qd, and Doxycyline 100mg BID, however was not able to tolerate IV antibiotics so switched patient to oral abx, have PT/OT work with patient, patient will benefit going to rehab. patient remains clinically stable, working with PT, patient has slight allergic rash possibly likely 2/2 abx, gave Benadryl and monitor. DS: Summary Hospital Course Hospital Course: Patient has Bimalleolar fracture, Patient Rt ankle was splinted at an urgent care, patient stats pain is better when she does not move her ankle, patient was seen by Dr. Medeiros, an orthepedic, recommended surgical intervention to repair the knee, patient will discuss with her and will plan on 07/16 patient was taken to OR and had ORIF of RT ankle, POD # 3 patient stats feels better, on 07/17 patient surgeon was present in the room, concerned that patient wound was contaminated prior to coming to the ER, he did irrigated the wound well, recommended to antibiotics to prevent any infection, started patient on ceftriaxone 2gram qd, and Doxycyline 100mg BID, however was not able to tolerate IV antibiotics so switched patient to oral abx, have PT/OT work with patient, patient will benefit going to rehab. patient remains clinically stable, working with PT, patient has slight allergic rash possibly likely 2/2 abx, gave Benadryl and monitor. today patient stats pain is better and feels better, will discharge patient to SNF for rehab. Time Spent with Patient Time attestation: Total time spent providing and/or coordinating discharge services: Exam Narrative: Patient is comfortable, NAD HEENT: eyes are clear and none icteric LUNGS:CTA HEART: RR S1S2 ABD: BS+, Soft and nontender Lower extremities: no edema RT lower extremity in the splint SKIN: nonjaundiced Neuro: grossly intact. DS: Data Data Completed and Pending Labs on day of discharge: Labs from last 24 hours 07/20/24 05:15 WBC 9.1 RBC 4.00 L Hgb 11.6 L Hct 36.5 L MCV 91.3 MCH 29.0 MCHC 31.8 L RDW 13.3 Plt Count 245 MPV 9.7 Sodium 136 L Potassium 4.2 Chloride 104 Carbon Dioxide 27 Anion Gap 5 BUN 14 Creatinine 0.58 L Estim Creat Clear Calc 77 Estimated GFR > 60 Glucose 108 Calcium 9.3 Magnesium 1.8 Discharge Plan Discharge Attending physician on discharge: Shayy Willingham Consulting providers: Andrew Medeiros; Salena Bridges; Andrés Wu; Mike Burger; Duncan Ford; David Marroquin Discharging Clinician: Ethan Kc Patient Disposition: SNF Activity: as tolerated Diet: heart healthy Discharge Instructions: patient to follow discharge care instruction from her surgeon and follow up as scheduled. patient to follow up with her primary care provider as soon as possible Patient Instructions: Antibiotic Form, Blood Thinners (GEN) Patient Language: Mongolian Stand Alone Forms: General Discharge Information Follow-up/Referrals: Andrew Medeiros MD [Physician] - Sharri Clay MD [Primary Care Provider] - Discharge Medications: New polyethylene glycol 3350 [Miralax] 17 gram Powder In Packet 17 g PO QAM Qty: 30 0RF sennosides-docusate sodium [Senokot-S] 8.6-50 mg Tablet 2 tab PO BID Qty: 30 0RF doxycycline hyclate 100 mg Tablet 100 mg PO Q12HR Qty: 14 0RF amoxicillin-pot clavulanate [Augmentin] 500-125 mg Tablet 1 tablet PO Q8HR Qty: 21 0RF Continued aspirin 81 mg tablet,delayed release (DR/EC) 81 mg PO DAILY Prilosec OTC 20 mg tablet,delayed release (DR/EC) 20 mg PO .QOD PreserVision AREDS 4,296 mcg-226 mg-90 mg capsule 1 cap PO DAILY trazodone 50 mg tablet 50 mg PO QHS Rx Instructions: TAKE 1 TABLET BY MOUTH DAILY hydrocodone-acetaminophen 5-325 mg tablet 1 tablet PO Q8H Qty: 15 0RF atorvastatin 40 mg tablet 40 mg PO DAILY Qty: 90 3RF levothyroxine 137 mcg tablet 137 mcg PO DAILY Qty: 90 1RF Rx Instructions: Take 1 tablet by mouth daily metoprolol succinate 50 mg tablet extended release 24 hr 50 mg PO DAILY Qty: 90 1RF Date of admission: 07/17/24 15:07 Primary Care Provider: Sharri Clay Admitting Provider: Shayy Willingham Attending physician on admission: Ethan Kc Condition: Stable
== END 2024-07-20 11:45 | DRG 494 ==
LOC: ANHED 22:52 → ANH3MEDSUR 07-15 05:23
PROVIDERS: Orthopaedic Surgery; Admitting Provider Internal Medicine; Emergency Provider Emergency Medicine; PCP Family Medicine; Visit Provider Family Medicine
PROC: 0QSJ06Z Reposition Right Fibula with Intramedullary Internal Fixation Device, Open Approach (ICD-10-PCS; principal; 2024-07-16 09:30)
DX: S82.841A Displaced bimalleolar fracture of right lower leg, initial encounter for closed fracture (principal); S93.431A Sprain of tibiofibular ligament of right ankle, initial encounter; W19.XXXA Unspecified fall, initial encounter; Z96.653 Presence of artificial knee joint, bilateral; Z79.82 Long term (current) use of aspirin
CPT/HCPCS: 29515; 36415; 73560; 73610; 80048; 83735; 85025; 85027; 96374; 96375; 97110; 97161; 97165; 97530; 97535; 99199; 99214; 99285; A9270; C1713; G0378; G0463; J0690; J0696; J1100; J1171; J1885; J2003; J2270; J2405; J2704; J3370; J7120

== ENCOUNTER 2024-09-29 10:41 | Outpatient (CLI) | payer OTHER, SELFPAY ==
--- NOTE | ~2024-09-29 | MM_ITS ---
EXAMINATION: MM screening vale BI w rhea HISTORY: Screening TECHNIQUE: Craniocaudal and mediolateral oblique 3-D tomosynthesis images were obtained and synthetic 2-D images were generated. CAD analysis was submitted and interpreted. COMPARISON: Comparison to multiple prior studies sequentially, with oldest reviewed study dated 12/09. BREAST PARENCHYMAL COMPOSITION: There are scattered areas of fibroglandular density. FINDINGS: There is no evidence of suspicious mass, calcification, or architectural distortion to sug gest malignancy in either breast. IMPRESSION: 1. No mammographic evidence of malignancy. 2. Recommend routine screening mammography in one year. BI-RADS Category 1: Negative Reviewed, dictated and finalized at location B.
--- OUTSIDE RECORDS SUMMARY | 2024-09-29 10:51 | XMS_ITS | Continuity of Care Document ---
Author Organization [facility] Address [address] [place] [address] [address] [place] [address] Phone Care Team Providers Care Window Tinter Name Role Phone Ross OD, Ernie Unavailable Unavailable Procedures Procedure Date Eye Exam & Treatment Refraction Eye Exam & Treatment Refraction Advance Directives Directive Yes / No Effective Date File Name No Information Encounters Encounter Description Practice Location Reason(s) For Visit Diagnoses Date Provider Providers Copied on Encounter [facility], [address] [place] [address] [address], [place], [place], [id number], tel:[phone] [facility] No Information Oct-2 2-200 9 Ross OD Ernie. [address] , [address], [place], [place], [facility], [place]. tel:[phone] [facility], [address] [place] [address] [address], [place], [place], [id number], tel:[phone] [facility] No Information Oct-1 6-200 8 Ross OD Ernie. [address] , [address], [place], [address], [place]. tel:[phone] Family History Family Member Type Diagnosis Age At Onset No Information Payers Payer name Insurance type Covered green party ID Authoriza tiorlin(s) [employer] Plan CI [id number] Social History Type Description Quantity Date Captured [...]
--- OUTSIDE RECORDS SUMMARY | 2024-09-29 10:51 | XMS_ITS | Clinical Summary ---
Author Organization [facility] Address [address], [address] [address] Phone Care Team Providers Care Server Service Assistant Name Role Phone Carlos Alberto Clay MD Primary Care Provider [phone] Ernie Saba DO Unavailable [phone] Immunizations Immunization Administration Dates Next Due [...] Health Maintenance Due Date Last Done Comments Hepatitis C Virus (HCV) Screening 1945 TdaP Immunization 1945 Pneumococcal Immunization (5 0+ years) (1 of 1 - PCV) 1994 Respiratory Syncytial Virus (RSV) Immunization (Adult) (1 - 1-dose 75+ series) 2019 SARS-COV-2 Immunization ( - 2023- season) 2023 12/03/2020, 05/08/2020, 04/14/2020 Influenza Immunization (#1) 2024 12/21/2019 Colonoscopy Discontinued 03/30/2015 Colorectal Cancer Screening Discontinued DTaP/Tdap/Td Immunization Discontinued 06/18/2018 Zoster Immunization Completed 10/19/2018, 08/10/2018 Cologuard Discontinued Hepatitis B Immunization Aged Out No longer eligible based on patient's age to complete this topic Human Papillomavirus (HPV) Immunization Aged Out No longer eligible based [...] Recently Relevant to Health Maintenance Insurance MEDICARE Member Subscriber Plan / Payer (Ef fective 2011-Present) Name:Jackeline Connolly Member ID:[id number] Relation to Subscriber:Self Name:CATHLEENJACKELINE L Subscriber ID:[id number] Payer ID:[id number] Group ID:Not on file Type:Not on file Address: [facility] [address] [facility] [employer] [facility] [place] [address] [facility] Care Teams Server Service Assistant Relationship Specialty Start Date End Date Carlos Alberto Clay MD [address] [place] [address] [address] [place] [address] PCP - General Family Medicine 03/30/15 Ernie Saba DO [address] [place] [address] [id number] Gastroenterology 03/30/15
--- OUTSIDE RECORDS SUMMARY | 2024-09-29 10:51 | XMS_ITS | Clinical Summary ---
Author Organization [facility] Address [address] [place] [id number] Care Team Providers Care Cardiac Specialist Name Role Phone Unavailable Primary Care Provider [...]
--- OUTSIDE RECORDS SUMMARY | 2024-09-29 10:52 | XMS_ITS ---
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 Role Phone Carmen Krishnamurthy Unavailable Selma Stevens Unavailable Sharri Heaton Unavailable Functional Status No Results Mental Status No Results Allergies and Intolerances Name Onset Date Reaction Severity fluticasone (Allergy) FriJuly 20 13:12:00 EDT 2024 Abd ominal pain Mild spironolactone (Allergy) FriJuly 20 13:11:00 EDT 2024 amlodipine (Allergy) FriJuly 20 13:10:00 EDT 5 lisinopril (Allergy) FriJuly 20 13:10:00 EDT 5 Encounters Program Name Primary Diagnosis Admission Date/Time Dis charge Date/Time Group [facility] FriJuly 20 08:30:00 EDT 2024Aug 20 10:30:00 EDT 2024 Immunizations Name Dates Status TST-PPD intradermal FriJuly 28 01:00:00 EDT 2024 Completed TST-PPD intradermal FriJuly 30 01:00:00 EDT 2024 Completed TST-PPD intradermal FriJuly 23 01:00:00 EDT 2024 Completed TST-PPD intradermal FriJuly 21 01:00:00 EDT 2024 Completed Medications Medication Directions Start Date End Date fluconazole 150 mg tablet 150 mg TABLET Oral 1 Time Daily for 1 Day Indication: UTI FriAugust 03 11:00:00 EDT 2024August 04 10:59:00 EDT 2024 fluconazole 150 mg tablet 150 mg TABLET Oral 1 Time Daily for 1 Day Indication: UTI FriAugust 07 07:00:00 EDT 2024Aug 08 06:59:00 EDT 2024 TylenoL 325 mg tablet 2 tablets TABLET O ral PRN Every 4 Hours Indication: Pain FriJuly 28 15:00:00 EDT 2024Aug 20 01:00:00 EDT 2024 Stimulant Laxative Plus 8.6 mg-50 mg tablet 2 tablets TABLET Oral 1 Time Daily Indication: Constipation FriJuly 28 07:00:00 EDT 2024July 28 10:28:00 EDT 2024 Stimulant Laxative Plus 8.6 mg-50 mg tablet 1 tablet TABLET Oral 1 Time Daily Indication: Constipation FriJuly 27 19:00:00 EDT 2024Aug 20 01:00:00 EDT 2024 levothyroxine 137 mcg tablet 1 tablet TABLET Oral 1 Time Daily Indication: hypothyroid FriJuly 25 02:00:00 EDT 2024Aug 20 01:00:00 EDT 2024 amoxicillin 500 mg-potassium clavulanate 125 mg tablet 1 tablet TABLET Oral 3 Times Daily for 2 Days Indication: Ankle/foot wound FriJuly 25 02:00:00 EDT 2024July 27 01:59:00 EDT 2024 famotidine 20 mg tablet 1 tab TABLET Ora l 1 Time Daily for 6 Days Indication: GERD FriJuly 22 16:35:00 EDT 2024July 28 16:34:00 EDT 2024 cetirizine 10 mg tablet 1 tab TABLET Ora l 1 Time Daily for 6 Days Indication: allergies FriJuly 22 16:35:00 EDT 2024July 28 16:34:00 EDT 2024 TubersoL 5 tub. unit/0.1 mL intradermal injection solution 0.1 Milliliter VIAL (ML) Intradermal 1 Time Weekly for 2 Weeks Indication: TB test 1 Step PPD- Read between 48 and 72 hours FriJuly 21 01:00:00 EDT 2024August 04 00:59:00 EDT 2024 TubersoL 5 tub. unit/0.1 mL intradermal injection solution 1 Application VIAL (ML) Other 1 Time Weekly for 2 Weeks Indication: TB test Read results between 48-72 hours after 1st and 2nd (1 week apart). Any reading of 10mm or greater results in a positive test, an x-ray will need to be ordered as a follow up. FriJuly 21 01:00:00 EDT 2024August 04 00:59:00 EDT 2024 omeprazole 20 mg tablet,delayed release 1 tablet TABLET, DELAYED RELEASE (ENTERIC COATED) Oral Every 2 Days Indication: heartburn FriJuly 21 11:38:00 EDT 2024Aug 20 01:00:00 EDT 2024 polyethylene glycoL 3350 17 gram/dose oral powder 17 gram POWDER (GRAM) Oral 1 Time Daily Indication: constipation FriJuly 20 13:00:00 ED2024Aug 20 01:00:00 EDT 2024 Stimulant Laxative Plus 8.6 mg-50 mg tablet 2 tablets TABLET Oral 2 Times Daily Indication: Constipation FriJuly 20 13:00:00 EDT 2024July 27 19:28:00 EDT 2024 aspirin 81 mg tablet,delayed release 1 tablet TABLET, DELAYED RELEASE (ENTERIC COATED) Oral 1 Time Daily Indication: thinner FriJuly 20 13:00:00 ED2024Aug 20 01:00:00 EDT 2024 PreserVision AREDS 4,296 mcg-226 mg-90 mg capsule 1 capsule CAPSULE Oral 1 Time Daily Indication: Vitamin FriJuly 20 13:00:00 EDT 2024Aug 20 01:00:00 EDT 2024 omeprazole 20 mg tablet,delayed release 1 tablet TABLET, DELAYED RELEASE (ENTERIC COATED) Oral 1 Time Daily Indication: heartburn FriJuly 20 09:00:00 EDT 2024July 21 11:40:00 EDT 2024 atorvastatin 40 mg tablet 1 tablet TABLE T Oral 1 Time Daily Indication: hyperlipidemia FriJuly 20 13:00:00 EDT 2024Aug 20 01:00:00 EDT 2024 levothyroxine 137 mcg tablet 1 tablet TABLET Oral 1 Time Daily Indication: hypothyroid FriJuly 20 13:00:00 EDT 2024July 25 01:24:00 EDT 2024 metoprolol succinate ER 50 mg tablet,extended release 24 hr 1 tablet TABLET, EXTENDED RELEASE 24 HR Oral 1 Time Daily Indication: HTN FriJuly 20 13:00:00 EDT 2024Aug 20 01:00:00 EDT 2024 traZODone 50 mg tablet 1 tablet TABLET O ral 1 Time Daily Indication: Insomnia FriJuly 20 13:00:00 EDT 2024Aug 20 01:00:00 EDT 2024 HYDROcodone 5 mg-acetaminophen 325 mg tablet 1 tablet TABLET Oral PRN Every 8 Hours Indication: Pain FriJuly 20 13:00:00 EDT 2024July 20 13:51:00 EDT 2024 amoxicillin 500 mg-potassium clavulanate 125 mg tablet 1 tablet TABLET Oral 3 Times Daily for 7 Days Indication: Ankle/foot wound FriJuly 20 13:00:00 EDT 2024July 25 01:27:00 EDT 2024 doxycycline hyclate 100 mg tablet 1 tablet TABLET Oral 2 Times Daily for 7 Days Indication: foot/ankle wound FriJuly 20 13:00:00 EDT 2024July 27 12:59:00 EDT 2024 HYDROcodone 5 mg-acetaminophen 325 mg tablet 1 tablet TABLET Oral 3 Times Daily Indication: Pain FriJuly 20 13:50:00 EDT 2024July 20 14:05:00 EDT 2024 HYDROcodone 5 mg-acetaminophen 325 mg tablet 1 tablet TABLET Oral PRN Every 8 Hours Indication: Pain FriJuly 20 14:04:00 EDT 2024Aug 20 01:00:00 EDT 2024 Pepcid 20 mg tablet 1 tab TABLET Oral 1 Time Daily Indication: GERD FriJuly 21 02:00:00 EDT 2024July 22 16:35:00 EDT 2024 cetirizine 10 mg tablet 1 tab TABLET Ora l 1 Time Daily Indication: allergies FriJuly 21 02:00:00 EDT 2024July 22 16:36:00 EDT 2024 triamcinolone acetonide 0.5 % topical cream 1 applpication CREAM (GRAM) Topical 2 Times Daily for 7 Days Indication: Back Rash FriJuly 21 02:00:00 EDT 2024July 28 01:59:00 EDT 2024 Problems Active Concerns * Displaced bimalleolar fracture of right lower leg, subsequent encounter for closed fracture with routine healing* Code: * Start Date: FriJuly 20 00:00:00 EDT 2024 * End Date: * Text: * shelter (current) use of aspirin* Code: * Start Date: FriJuly 20 00:00:00 EDT 2024 * End Date: * Text: * 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* Code: * Start Date: FriJuly 20 00:00:00 EDT 2024 * End Date: * Text: * Gastro-esophageal reflux disease without esophagitis* Code: * Start Date: FriJuly 20 00:00:00 EDT 2024 * End Date: * Text: * Hyperlipidemia, unspecified* Code: * Start Date: FriJuly 20 00:00:00 EDT 2024 * End Date: * Text: * Essential (primary) hypertension* Code: * Start Date: FriJuly 20 00:00:00 EDT 2024 * End Date: * Text: * Insomnia, unspecified* Code: * Start Date: FriJuly 20 00:00:00 EDT 2024 * End Date: FriJuly 23 00:00:00 EDT 2024 * Text: * Presence of other bone and tendon implants* Code: * Start Date: FriJuly 20 00:00:00 EDT 2024 * End Date: * Text: * Unspecified fall, subsequent encounter* Code: * Start Date: FriJuly 20 00:00:00 EDT 2024 * End Date: * Text: * Hypothyroidism, unspecified* Code: * Start Date: FriJuly 20 00:00:00 EDT 2024 * End Date: * Text: * Constipation, unspecified* Code: * Start Date: FriJuly 20 00:00:00 EDT 2024 * End Date: FriJuly 23 00:00:00 EDT 2024 * Text: * Retention of urine, unspecified* Code: * Start Date: FriJuly 20 00:00:00 EDT 2024 * End Date: * Text: * Presence of urogenital implants* Code: * Start Date: FriJuly 20 00:00:00 EDT 2024 * End Date: * Text: * Other prurigo* Code: * Start Date: FriJuly 20 00:00:00 EDT 2024 * End Date: * Text: * Unspecified open wound, right ankle, subsequent encounter* Code: * Start Date: FriJuly 20 00:00:00 EDT 2024 * End Date: * Text: * Infection and inflammatory reaction due to other urinary catheter, subsequent encounter* Code: * Start Date: FriJuly 20 00:00:00 EDT 2024 * End Date: * Text: * Urinary tract infection, site not specified* Code: * Start Date: FriJuly 20 00:00:00 EDT 2024 * End Date: * Text: * Primary insomnia* Code: * Start Date: FriJuly 20 00:00:00 EDT 2024 * End Date: * Text: * Drug induced constipation* Code: * Start Date: FriJuly 20 00:00:00 EDT 2024 * End Date: * Text: * Adverse effect of unspecified drugs, medicaments and biological substances, subsequent encounter* Code: * Start Date: FriJuly 20 00:00:00 EDT 2024 * End Date: * Text: * [id number] Jackeline receives a therapeutic diet with elevated BMI. (12)* Code: * Start Date: FriJuly 29 00:00:00 EDT 2024 * End Date: * Text: [id number] Jackeline receives a therapeutic diet with elevated BMI. (12) * LSS_Psychotropic Drug Use - Use of psychotropic drug use places Jackeline at risk for drug-related sideeffects.* Code: * Start Date: FriAugust 01 00:00:00 EDT 2024 * End Date: * Text: LSS_Psychotropic Drug Use - Use of psychotropic drug use places Jackeline at risk for drug-related side effects. * LSS_Falls - Jackeline is at risk for falls/injury as evidenced by: history of falls, cognitive status/behavior, vision status, continence, mobility, balance.* Code: * Start Date: FriAugust 01 00:00:00 EDT 2024 * End Date: * Text: LSS_Falls - Jackeline is at risk for falls/injury as evidenced by: history of falls, cognitive status/behavior, vision status, continence, mobility, balance. * LSS_Pain - Jackeline is experiencing pain or is at high risk for pain.* Code: * Start Date: FriAugust 01 00:00:00 EDT 2024 * End Date: * Text: LSS_Pain - Jackeline is experiencing pain or is at high risk for pain. * LSS_Skin Integrity - (Potential Alteration of)- Jackeline is at risk for developing impaired skin integrity.* Code: * Start Date: FriAugust 01 00:00:00 EDT 2024 * End Date: * Text: LSS_Skin Integrity - (Potential Alteration of)- Jackeline is at risk for developing impaired skinintegrity. * LSS_ADLs - Jackeline has ADL selfcare deficit related to decreased mobility and muscle weakness* Code: * Start Date: FriAugust 01 00:00:00 EDT 2024 * End Date: * Text: MARICELADLs Silas Viveros has ADL selfcare deficit related to decreased mobility and muscle weakness * MARICELSocial Amy Viveros's wishes will be followed (Advanced Directive/Code Status).* Code: * Start Date: FriJuly 29 00:00:00 EDT 2024 * End Date: * Text: MARICELSocial Amy Viveros's wishes will be followed (Advanced Directive/Code Status). * MARICELSocial Amy Viveros will be involved in goal development to the best of his or her ability.* Code: * Start Date: FriJuly 29 00:00:00 EDT 2024 * End Date: * Text: MARICELSocial Amy Viveros will be involved in goal development to the best of his or her ability. * MARICELSocial Amy Viveros has family/friends who are supportive.* Code: * Start Date: FriJuly 29 00:00:00 EDT 2024 * End Date: * Text: MARICELSocial Amy Viveros has family/friends who are supportive. * MARICELSocial Amy Viveros will be involved in discharge planning.* Code: * Start Date: FriJuly 29 00:00:00 EDT 2024 * End Date: * Text: MARICELSocial Amy Viveros will be involved in discharge planning. Vital Signs Vital Sign Measurement Date Body weight 236.00 [lb_av] FriAug 20 14:44 :58 EDT 2024 Systolic Blood Pressure 174.00 mm[Hg] FriAug 20 09:36:01 ED2024 Diastolic Blood Pressure 85.00 mm[Hg] FriAug 20 09:36:01 ED2024 Heart Rate 69.00 /min FriAug 20 09:36 :01 ED2024 Systolic Blood Pressure 174.00 mm[Hg] FriAug 20 09:00:55 ED2024 Diastolic Blood Pressure 85.00 mm[Hg] FriAug 20 09:00:55 ED2024 Pulse Oximetry 96.00 % FriAug 20 09:00 :55 ED2024 Heart Rate 69.00 /min FriAug 20 09:00 :55 ED2024 Body temperature 97.90 [degF] FriAug 20 09:0 0:55 ED2024 Respiratory rate 18.00 /min FriAug 20 09:0 0:55 EDT 2024 Systolic Blood Pressure 168.00 mm[Hg] Fri 13 01:08:35 EDT 2024 Diastolic Blood Pressure 83.00 mm[Hg] FriAug 20 01:08:35 EDT 2024 Pulse Oximetry 96.00 % FriAug 20 01:08 :35 EDT 2024 Heart Rate 71.00 /min FriAug 20 01:08 :35 EDT 2024 Body temperature 98.00 [degF] FriAug 20 01:0 8:35 EDT 2024 Respiratory rate 18.00 /min FriAug 20 01:0 8:35 EDT 2024 Body weight 236.20 [lb_av] Fri 12 10:15 :16 EDT 2024 Systolic Blood Pressure 173.00 mm[Hg] Fri 12 08:51:23 EDT 2024 Diastolic Blood Pressure 80.00 mm[Hg] Fri 12 08:51:23 EDT 2024 Pulse Oximetry 94.00 % Fri 12 08:51 :23 EDT 2024 Heart Rate 73.00 /min Fri 12 08:51 :23 EDT 2024 Body temperature 97.40 [degF] [place] 12 08:5 1:23 EDT 2024 Respiratory rate 18.00 /min Fri 12 08:5 1:23 EDT 2024 Systolic Blood Pressure 173.00 mm[Hg] Fri 12 08:38:22 EDT 2024 Diastolic Blood Pressure 80.00 mm[Hg] Fri 12 08:38:22 EDT 2024 Heart Rate 73.00 /min Fri 12 08:38 :22 EDT 2024 Systolic Blood Pressure 173.00 mm[Hg] Fri 12 07:46:23 EDT 2024 Diastolic Blood Pressure 80.00 mm[Hg] Fri 12 07:46:23 EDT 2024 Pulse Oximetry 94.00 % Fri 12 07:46 :23 EDT 2024 Heart Rate 73.00 /min Fri 12 07:46 :23 EDT 2024 Body temperature 97.40 [degF] Fri 12 07:4 6:23 EDT 2024 Respiratory rate 18.00 /min Fri 12 07:4 6:23 EDT 2024 Systolic Blood Pressure 159.00 mm[Hg] Wed Raymundo 11 21:47:59 EDT 2024 Diastolic Blood Pressure 71.00 mm[Hg] FriAug 18 21:47:59 EDT 2024 Pulse Oximetry 96.00 % FriAug 18 21:47 :59 EDT 2024 Heart Rate 71.00 /min FriAug 18 21:47 :59 EDT 2024 Body temperature 97.60 [degF] FriAug 18 21:4 7:59 EDT 2024 Respiratory rate 20.00 /min FriAug 18 21:4 7:59 EDT 2024 Body weight 237.60 [lb_av] FriAug 18 11:27 :38 EDT 2024 Systolic Blood Pressure 162.00 mm[Hg] FriAug 18 09:51:33 EDT 2024 Diastolic Blood Pressure 74.00 mm[Hg] FriAug 18 09:51:33 EDT 2024 Systolic Blood Pressure 162.00 mm[Hg] FriAug 18 09:51:33 EDT 2024 Diastolic Blood Pressure 74.00 mm[Hg] FriAug 18 09:51:33 EDT 2024 Pulse Oximetry 93.00 % FriAug 18 09:51 :33 EDT 2024 Heart Rate 74.00 /min FriAug 18 09:51 :33 EDT 2024 Heart Rate 74.00 /min FriAug 18 09:51 :33 EDT 2024 Body temperature 97.40 [degF] FriAug 18 09:5 1:33 EDT 2024 Respiratory rate 18.00 /min FriAug 18 09:5 1:33 EDT 2024 Systolic Blood Pressure 162.00 mm[Hg] FriAug 17 21:17:43 EDT 2024 Diastolic Blood Pressure 69.00 mm[Hg] FriAug 17 21:17:43 EDT 2024 Pulse Oximetry 94.00 % FriAug 17 21:17 :43 EDT 2024 Heart Rate 73.00 /min FriAug 17 21:17 :43 EDT 2024 Body temperature 98.00 [degF] FriAug 17 21:1 7:43 EDT 2024 Respiratory rate 18.00 /min FriAug 17 21:1 7:43 EDT 2024 Body weight 236.20 [lb_av] FriAug 17 14:44 :48 EDT 2024 Systolic Blood Pressure 162.00 mm[Hg] FriAug 17 10:54:58 EDT 2024 Diastolic Blood Pressure 75.00 mm[Hg] FriAug 17 10:54:58 EDT 2024 Pulse Oximetry 95.00 % FriAug 17 10:54 :58 EDT 2024 Heart Rate 76.00 /min FriAug 17 10:54 :58 EDT 2024 Body temperature 97.80 [degF] FriAug 17 10:5 4:58 EDT 2024 Respiratory rate 18.00 /min FriAug 17 10:5 4:58 EDT 2024 Systolic Blood Pressure 162.00 mm[Hg] FriAug 17 09:57:05 EDT 2024 Diastolic Blood Pressure 75.00 mm[Hg] FriAug 17 09:57:05 EDT 2024 Heart Rate 75.00 /min FriAug 17 09:57 :05 EDT 2024 Systolic Blood Pressure 135.00 mm[Hg] FriAug 17 02:09:25 EDT 2024 Diastolic Blood Pressure 67.00 mm[Hg] FriAug 17 02:09:25 EDT 2024 Pulse Oximetry 94.00 % FriAug 17 02:09 :25 EDT 2024 Heart Rate 80.00 /min FriAug 17 02:09 :25 EDT 2024 Body temperature 98.10 [degF] FriAug 17 02:0 9:25 EDT 2024 Respiratory rate 16.00 /min FriAug 17 02:0 9:25 EDT 2024 Body weight 234.40 [lb_av] FriAug 16 13:11 :58 EDT 2024 Systolic Blood Pressure 171.00 mm[Hg] FriAug 16 09:56:51 EDT 2024 Diastolic Blood Pressure 80.00 mm[Hg] FriAug 16 09:56:51 EDT 2024 Pulse Oximetry 97.00 % FriAug 16 09:56 :51 EDT 2024 Heart Rate 67.00 /min FriAug 16 09:56 :51 EDT 2024 Body temperature 97.40 [degF] FriAug 16 09:5 6:51 EDT 2024 Respiratory rate 18.00 /min FriAug 16 09:5 6:51 EDT 2024 Systolic Blood Pressure 171.00 mm[Hg] FriAug 16 09:56:23 EDT 2024 Diastolic Blood Pressure 80.00 mm[Hg] FriAug 16 09:56:23 EDT 2024 Heart Rate 67.00 /min FriAug 16 09:56 :23 EDT 2024 Systolic Blood Pressure 148.00 mm[Hg] FriAug 16 00:14:39 EDT 2024 Diastolic Blood Pressure 83.00 mm[Hg] FriAug 16 00:14:39 EDT 2024 Pulse Oximetry 96.00 % FriAug 16 00:14 :39 EDT 2024 Heart Rate 77.00 /min FriAug 16 00:14 :39 EDT 2024 Body temperature 97.80 [degF] FriAug 16 00:1 4:39 EDT 2024 Respiratory rate 18.00 /min FriAug 16 00:1 4:39 EDT 2024 Body weight 233.40 [lb_av] [place] Aug 15 14:14 :52 EDT 2024 Systolic Blood Pressure 155.00 mm[Hg] [place] Aug 15 09:41:08 EDT 2024 Diastolic Blood Pressure 86.00 mm[Hg] [place] Aug 15 09:41:08 EDT 2024 Heart Rate 74.00 /min [place] Aug 15 09:41 :08 EDT 2024 Systolic Blood Pressure 155.00 mm[Hg] [place] Aug 15 09:21:47 EDT 2024 Diastolic Blood Pressure 86.00 mm[Hg] [place] Aug 15 09:21:47 EDT 2024 Pulse Oximetry 97.00 % [place] Aug 15 09:21 :47 EDT 2024 Heart Rate 74.00 /min [place] Aug 15 09:21 :47 EDT 2024 Body temperature 97.50 [degF] [place] Aug 15 09:2 1:47 EDT 2024 Respiratory rate 18.00 /min [place] Aug 15 09:2 1:47 EDT 2024 Systolic Blood Pressure 144.00 mm[Hg] [facility] Aug 14 23:26:17 EDT 2024 Diastolic Blood Pressure 66.00 mm[Hg] [facility] Aug 14 23:26:17 EDT 2024 Pulse Oximetry 95.00 % [facility] Aug 14 23:26 :17 EDT 2024 Heart Rate 68.00 /min [facility] Aug 14 23:26 :17 EDT 2024 Body temperature 98.00 [degF] [facility] Aug 14 23:2 6:17 EDT 2024 Respiratory rate 16.00 /min [facility] Aug 14 23:2 6:17 EDT 2024 Body weight 238.60 [lb_av] [facility] Aug 14 14:19 :55 EDT 2024 Systolic Blood Pressure 164.00 mm[Hg] Fri 07 13:20:50 EDT 5 Diastolic Blood Pressure 75.00 mm[Hg] Fri 07 13:20:50 EDT 2024 Pulse Oximetry 98.00 % Fri 07 13:20 :50 EDT 2024 Heart Rate 68.00 /min Fri 07 13:20 :50 EDT 2024 Body temperature 97.30 [degF] Fri 07 13:2 0:50 EDT 2024 Respiratory rate 18.00 /min Fri 07 13:2 0:50 EDT 2024 Systolic Blood Pressure 164.00 mm[Hg] Fri 07 09:41:38 EDT 2024 Diastolic Blood Pressure 75.00 mm[Hg] FriAug 14 09:41:38 EDT 2024 Heart Rate 68.00 /min FriAug 14 09:41 :38 EDT 2024 Systolic Blood Pressure 150.00 mm[Hg] FriAug 13 20:43:36 EDT 2024 Diastolic Blood Pressure 67.00 mm[Hg] FriAug 13 20:43:36 EDT 2024 Pulse Oximetry 97.00 % FriAug 13 20:43 :36 EDT 2024 Heart Rate 70.00 /min FriAug 13 20:43 :36 EDT 2024 Body temperature 97.50 [degF] FriAug 13 20:4 3:36 EDT 2024 Respiratory rate 20.00 /min FriAug 13 20:4 3:36 EDT 2024 Body weight 235.90 [lb_av] FriAug 13 10:44 :08 EDT 2024 Systolic Blood Pressure 148.00 mm[Hg] FriAug 13 09:31:29 EDT 2024 Diastolic Blood Pressure 77.00 mm[Hg] FriAug 13 09:31:29 EDT 2024 Heart Rate 66.00 /min FriAug 13 09:31 :29 EDT 2024 Systolic Blood Pressure 148.00 mm[Hg] FriAug 13 09:26:13 EDT 2024 Diastolic Blood Pressure 77.00 mm[Hg] FriAug 13 09:26:13 EDT 2024 Pulse Oximetry 99.00 % FriAug 13 09:26 :13 EDT 2024 Heart Rate 66.00 /min FriAug 13 09:26 :13 EDT 2024 Body temperature 97.30 [degF] FriAug 13 09:2 6:13 EDT 2024 Respiratory rate 20.00 /min FriAug 13 09:2 6:13 EDT 2024 Systolic Blood Pressure 163.00 mm[Hg] Fri 05 22:14:18 EDT 2024 Diastolic Blood Pressure 74.00 mm[Hg] Fri 05 22:14:18 EDT 2024 Pulse Oximetry 97.00 % Fri 05 22:14 :18 EDT 2024 Heart Rate 75.00 /min Fri 05 22:14 :18 EDT 2024 Body temperature 97.50 [degF] Fri 05 22:1 4:18 EDT 2024 Respiratory rate 20.00 /min FriAug 12 22:1 4:18 EDT 2024 Body weight 236.20 [lb_av] FriAug 12 18:36 :44 EDT 2024 Systolic Blood Pressure 109.00 mm[Hg] Fri 05 10:50:55 EDT 2024 Diastolic Blood Pressure 59.00 mm[Hg] Fri 05 10:50:55 EDT 2024 Systolic Blood Pressure 109.00 mm[Hg] Fri 05 10:50:55 EDT 2024 Diastolic Blood Pressure 59.00 mm[Hg] Fri 05 10:50:55 EDT 2024 Pulse Oximetry 98.00 % FriAug 12 10:50 :55 EDT 2024 Heart Rate 85.00 /min Fri 05 10:50 :55 EDT 2024 Heart Rate 85.00 /min Fri 05 10:50 :55 EDT 2024 Body temperature 98.10 [degF] Fri 05 10:5 0:55 EDT 2024 Respiratory rate 18.00 /min Fri 05 10:5 0:55 EDT 2024 Systolic Blood Pressure 161.00 mm[Hg] Fri 05 00:44:30 EDT 2024 Diastolic Blood Pressure 73.00 mm[Hg] Fri 05 00:44:30 EDT 2024 Pulse Oximetry 98.00 % Fri 05 00:44 :30 EDT 2024 Heart Rate 75.00 /min Fri 05 00:44 :30 EDT 2024 Body temperature 97.50 [degF] Fri 05 00:4 4:30 EDT 2024 Respiratory rate 20.00 /min Fri 05 00:4 4:30 EDT 2024 Systolic Blood Pressure 156.00 mm[Hg] FriAug 11 10:50:46 EDT 2024 Diastolic Blood Pressure 72.00 mm[Hg] FriAug 11 10:50:46 EDT 2024 Pulse Oximetry 93.00 % FriAug 11 10:50 :46 EDT 2024 Body weight 235.40 [lb_av] FriAug 11 10:50 :46 EDT 2024 Heart Rate 80.00 /min FriAug 11 10:50 :46 EDT 2024 Body temperature 97.70 [degF] FriAug 11 10:5 0:46 EDT 2024 Respiratory rate 18.00 /min FriAug 11 10:5 0:46 EDT 2024 Systolic Blood Pressure 156.00 mm[Hg] FriAug 11 09:22:52 EDT 2024 Diastolic Blood Pressure 72.00 mm[Hg] FriAug 11 09:22:52 EDT 2024 Heart Rate 80.00 /min FriAug 11 09:22 :52 EDT 2024 Systolic Blood Pressure 156.00 mm[Hg] FriAug 11 08:08:51 EDT 2024 Diastolic Blood Pressure 72.00 mm[Hg] FriAug 11 08:08:51 EDT 2024 Pulse Oximetry 93.00 % FriAug 11 08:08 :51 EDT 2024 Heart Rate 80.00 /min FriAug 11 08:08 :51 EDT 2024 Body temperature 97.70 [degF] FriAug 11 08:0 8:51 EDT 2024 Respiratory rate 18.00 /min FriAug 11 08:0 8:51 EDT 2024 Systolic Blood Pressure 144.00 mm[Hg] FriAug 10 22:57:57 EDT 2024 Diastolic Blood Pressure 66.00 mm[Hg] FriAug 10 22:57:57 EDT 2024 Pulse Oximetry 95.00 % FriAug 10 22:57 :57 EDT 2024 Heart Rate 76.00 /min FriAug 10 22:57 :57 EDT 2024 Body temperature 97.80 [degF] FriAug 10 22:5 7:57 EDT 2024 Respiratory rate 20.00 /min FriAug 10 22:5 7:57 EDT 2024 Systolic Blood Pressure 161.00 mm[Hg] FriAug 10 16:51:57 EDT 2024 Diastolic Blood Pressure 76.00 mm[Hg] FriAug 10 16:51:57 EDT 2024 Pulse Oximetry 94.00 % FriAug 10 16:51 :57 EDT 2024 Body weight 236.80 [lb_av] FriAug 10 16:51 :57 EDT 2024 Heart Rate 74.00 /min FriAug 10 16:51 :57 EDT 2024 Body temperature 97.80 [degF] FriAug 10 16:5 1:57 EDT 2024 Respiratory rate 18.00 /min FriAug 10 16:5 1:57 EDT 2024 Systolic Blood Pressure 161.00 mm[Hg] FriAug 10 09:51:30 EDT 2024 Diastolic Blood Pressure 76.00 mm[Hg] FriAug 10 09:51:30 EDT 2024 Heart Rate 74.00 /min FriAug 10 09:51 :30 EDT 2024 Systolic Blood Pressure 116.00 mm[Hg] FriAug 10 00:28:02 EDT 2024 Diastolic Blood Pressure 69.00 mm[Hg] FriAug 10 00:28:02 EDT 2024 Pulse Oximetry 97.00 % FriAug 10 00:28 :02 EDT 2024 Heart Rate 76.00 /min FriAug 10 00:28 :02 EDT 2024 Body temperature 98.20 [degF] FriAug 10 00:2 8:02 EDT 2024 Respiratory rate 20.00 /min FriAug 10 00:2 8:02 EDT 2024 Body weight 238.20 [lb_av] FriAug 09 11:46 :23 EDT 2024 Systolic Blood Pressure 153.00 mm[Hg] FriAug 09 10:20:22 EDT 2024 Diastolic Blood Pressure 81.00 mm[Hg] FriAug 09 10:20:22 EDT 2024 Pulse Oximetry 98.00 % FriAug 09 10:20 :22 EDT 2024 Heart Rate 71.00 /min FriAug 09 10:20 :22 EDT 2024 Body temperature 98.30 [degF] FriAug 09 10:2 0:22 EDT 2024 Respiratory rate 18.00 /min FriAug 09 10:2 0:22 EDT 2024 Systolic Blood Pressure 153.00 mm[Hg] FriAug 09 09:31:01 EDT 2024 Diastolic Blood Pressure 81.00 mm[Hg] FriAug 09 09:31:01 EDT 2024 Heart Rate 71.00 /min FriAug 09 09:31 :01 EDT 2024 Systolic Blood Pressure 118.00 mm[Hg] FriAug 08 21:03:21 EDT 2024 Diastolic Blood Pressure 75.00 mm[Hg] FriAug 08 21:03:21 EDT 2024 Pulse Oximetry 94.00 % FriAug 08 21:03 :21 EDT 2024 Heart Rate 76.00 /min FriAug 08 21:03 :21 EDT 2024 Body temperature 97.70 [degF] FriAug 08 21:0 3:21 EDT 2024 Respiratory rate 20.00 /min FriAug 08 21:0 3:21 EDT 2024 Body weight 239.00 [lb_av] FriAug 08 18:36 :02 EDT 2024 Systolic Blood Pressure 153.00 mm[Hg] FriAug 08 10:40:37 EDT 2024 Diastolic Blood Pressure 75.00 mm[Hg] FriAug 08 10:40:37 EDT 2024 Systolic Blood Pressure 153.00 mm[Hg] FriAug 08 10:40:37 EDT 2024 Diastolic Blood Pressure 75.00 mm[Hg] FriAug 08 10:40:37 EDT 2024 Pulse Oximetry 97.00 % FriAug 08 10:40 :37 EDT 2024 Heart Rate 76.00 /min FriAug 08 10:40 :37 EDT 2024 Heart Rate 76.00 /min FriAug 08 10:40 :37 EDT 2024 Body temperature 97.60 [degF] FriAug 08 10:4 0:37 EDT 2024 Respiratory rate 20.00 /min FriAug 08 10:4 0:37 EDT 2024 Systolic Blood Pressure 155.00 mm[Hg] FriAugust 07 21:08:55 EDT 2024 Diastolic Blood Pressure 65.00 mm[Hg] FriAugust 07 21:08:55 EDT 2024 Pulse Oximetry 94.00 % FriAugust 07 21:08 :55 EDT 2024 Heart Rate 78.00 /min FriAugust 07 21:08 :55 EDT 2024 Body temperature 97.70 [degF] FriAugust 07 21:0 8:55 EDT 2024 Respiratory rate 20.00 /min FriAugust 07 21:0 8:55 EDT 2024 Body weight 236.90 [lb_av] FriAugust 07 15:43 :29 EDT 2024 Systolic Blood Pressure 164.00 mm[Hg] FriAugust 07 10:24:11 EDT 2024 Diastolic Blood Pressure 73.00 mm[Hg] FriAugust 07 10:24:11 EDT 2024 Systolic Blood Pressure 164.00 mm[Hg] FriAugust 07 10:24:11 EDT 2024 Diastolic Blood Pressure 73.00 mm[Hg] FriAugust 07 10:24:11 EDT 2024 Pulse Oximetry 94.00 % FriAugust 07 10:24 :11 EDT 2024 Heart Rate 72.00 /min FriAugust 07 10:24 :11 EDT 2024 Heart Rate 72.00 /min FriAugust 07 10:24 :11 EDT 2024 Body temperature 97.70 [degF] FriAugust 07 10:2 4:11 EDT 2024 Respiratory rate 18.00 /min FriAugust 07 10:2 4:11 EDT 2024 Systolic Blood Pressure 143.00 mm[Hg] FriAugust 06 22:01:33 EDT 2024 Diastolic Blood Pressure 85.00 mm[Hg] FriAugust 06 22:01:33 EDT 2024 Pulse Oximetry 97.00 % FriAugust 06 22:01 :33 EDT 2024 Heart Rate 72.00 /min FriAugust 06 22:01 :33 EDT 2024 Body temperature 98.10 [degF] FriAugust 06 22:0 1:33 EDT 2024 Respiratory rate 20.00 /min FriAugust 06 22:0 1:33 EDT 2024 Body weight 235.90 [lb_av] FriAugust 06 17:14 :19 EDT 2024 Systolic Blood Pressure 173.00 mm[Hg] FriAugust 06 11:01:11 EDT 2024 Diastolic Blood Pressure 78.00 mm[Hg] FriAugust 06 11:01:11 EDT 2024 Pulse Oximetry 98.00 % FriAugust 06 11:01 :11 EDT 2024 Body temperature 97.10 [degF] FriAugust 06 11:0 1:11 EDT 2024 Respiratory rate 20.00 /min FriAugust 06 11:0 1:11 EDT 2024 Heart Rate 73.00 /min FriAugust 06 11:01 :11 EDT 2024 Systolic Blood Pressure 173.00 mm[Hg] FriAugust 06 10:27:22 EDT 2024 Diastolic Blood Pressure 80.00 mm[Hg] FriAugust 06 10:27:22 EDT 2024 Heart Rate 73.00 /min FriAugust 06 10:27 :22 EDT 2024 Systolic Blood Pressure 139.00 mm[Hg] FriAugust 05 21:07:20 EDT 2024 Diastolic Blood Pressure 59.00 mm[Hg] FriAugust 05 21:07:20 EDT 2024 Pulse Oximetry 96.00 % FriAugust 05 21:07 :20 EDT 2024 Heart Rate 70.00 /min FriAugust 05 21:07 :20 EDT 2024 Body temperature 98.10 [degF] FriAugust 05 21:0 7:20 EDT 2024 Respiratory rate 20.00 /min FriAugust 05 21:0 7:20 EDT 2024 Body weight 235.00 [lb_av] FriAugust 05 13:53 :30 EDT 2024 Systolic Blood Pressure 129.00 mm[Hg] FriAugust 05 09:36:52 EDT 2024 Diastolic Blood Pressure 75.00 mm[Hg] FriAugust 05 09:36:52 EDT 2024 Heart Rate 71.00 /min FriAugust 05 09:36 :52 EDT 2024 Systolic Blood Pressure 129.00 mm[Hg] FriAugust 05 08:38:55 EDT 2024 Diastolic Blood Pressure 75.00 mm[Hg] FriAugust 05 08:38:55 EDT 2024 Pulse Oximetry 98.00 % FriAugust 05 08:38 :55 EDT 2024 Heart Rate 71.00 /min FriAugust 05 08:38 :55 EDT 2024 Body temperature 97.40 [degF] FriAugust 05 08:3 8:55 EDT 2024 Respiratory rate 18.00 /min FriAugust 05 08:3 8:55 EDT 2024 Systolic Blood Pressure 129.00 mm[Hg] FriAugust 05 07:47:44 EDT 2024 Diastolic Blood Pressure 75.00 mm[Hg] FriAugust 05 07:47:44 EDT 2024 Pulse Oximetry 98.00 % FriAugust 05 07:47 :44 EDT 2024 Heart Rate 71.00 /min FriAugust 05 07:47 :44 EDT 2024 Body temperature 97.40 [degF] FriAugust 05 07:4 7:44 EDT 2024 Respiratory rate 18.00 /min FriAugust 05 07:4 7:44 EDT 2024 Systolic Blood Pressure 153.00 mm[Hg] FriAugust 05:13:25 EDT 2024 Diastolic Blood Pressure 70.00 mm[Hg] FriAugust 05:13:25 EDT 2024 Pulse Oximetry 96.00 % FriAugust 05:13 :25 EDT 2024 Heart Rate 80.00 /min FriAugust 05:13 :25 EDT 2024 Body temperature 97.50 [degF] FriAugust 05 00:1 3:25 EDT 2024 Respiratory rate 18.00 /min FriAugust 05 00:1 3:25 EDT 2024 Body weight 236.80 [lb_av] FriAugust 04 11:15 :25 EDT 2024 Systolic Blood Pressure 141.00 mm[Hg] FriAugust 04 11:00:39 EDT 2024 Diastolic Blood Pressure 72.00 mm[Hg] FriAugust 04 11:00:39 EDT 2024 Pulse Oximetry 97.00 % FriAugust 04 11:00 :39 EDT 2024 Heart Rate 73.00 /min FriAugust 04 11:00 :39 EDT 2024 Body temperature 97.60 [degF] FriAugust 04 11:0 0:39 EDT 2024 Respiratory rate 18.00 /min FriAugust 04 11:0 0:39 EDT 2024 Systolic Blood Pressure 141.00 mm[Hg] FriAugust 04 09:42:10 EDT 2024 Diastolic Blood Pressure 72.00 mm[Hg] FriAugust 04 09:42:10 EDT 2024 Heart Rate 73.00 /min FriAugust 04 09:42 :10 EDT 2024 Systolic Blood Pressure 158.00 mm[Hg] FriAugust 03 23:30:06 EDT 2024 Diastolic Blood Pressure 72.00 mm[Hg] FriAugust 03 23:30:06 EDT 2024 Pulse Oximetry 93.00 % FriAugust 03 23:30 :06 EDT 2024 Heart Rate 81.00 /min FriAugust 03 23:30 :06 EDT 2024 Body temperature 98.30 [degF] FriAugust 03 23:3 0:06 EDT 2024 Respiratory rate 18.00 /min FriAugust 03 23:3 0:06 EDT 2024 Systolic Blood Pressure 142.00 mm[Hg] FriAugust 03 11:17:38 EDT 2024 Diastolic Blood Pressure 70.00 mm[Hg] FriAugust 03 11:17:38 EDT 2024 Pulse Oximetry 99.00 % FriAugust 03 11:17 :38 EDT 2024 Body weight 235.00 [lb_av] FriAugust 03 11:17 :38 EDT 2024 Heart Rate 68.00 /min FriAugust 03 11:17 :38 EDT 2024 Body temperature 97.40 [degF] FriAugust 03 11:1 7:38 EDT 2024 Respiratory rate 18.00 /min FriAugust 03 11:1 7:38 EDT 2024 Systolic Blood Pressure 142.00 mm[Hg] FriAugust 03 09:19:27 EDT 2024 Diastolic Blood Pressure 77.00 mm[Hg] FriAugust 03 09:19:27 EDT 2024 Heart Rate 71.00 /min FriAugust 03 09:19 :27 EDT 2024 Systolic Blood Pressure 149.00 mm[Hg] FriAugust 03 00:16:48 EDT 2024 Diastolic Blood Pressure 68.00 mm[Hg] FriAugust 03 00:16:48 EDT 2024 Pulse Oximetry 95.00 % FriAugust 03 00:16 :48 EDT 2024 Heart Rate 78.00 /min FriAugust 03 00:16 :48 EDT 2024 Body temperature 97.80 [degF] FriAugust 03 00:1 6:48 EDT 2024 Respiratory rate 18.00 /min FriAugust 03 00:1 6:48 EDT 2024 Body weight 237.90 [lb_av] FriAugust 02 17:26 :34 EDT 2024 Systolic Blood Pressure 158.00 mm[Hg] FriAugust 02 14:12:11 EDT 2024 Diastolic Blood Pressure 60.00 mm[Hg] FriAugust 02 14:12:11 EDT 2024 Pulse Oximetry 97.00 % FriAugust 02 14:12 :11 EDT 2024 Heart Rate 70.00 /min FriAugust 02 14:12 :11 EDT 2024 Body temperature 97.10 [degF] FriAugust 02 14:1 2:11 EDT 2024 Respiratory rate 18.00 /min FriAugust 02 14:1 2:11 EDT 2024 Systolic Blood Pressure 158.00 mm[Hg] FriAugust 02 09:46:06 EDT 2024 Diastolic Blood Pressure 70.00 mm[Hg] FriAugust 02 09:46:06 EDT 2024 Heart Rate 64.00 /min FriAugust 02 09:46 :06 EDT 2024 Systolic Blood Pressure 158.00 mm[Hg] FriAugust 01 22:53:11 EDT 2024 Diastolic Blood Pressure 66.00 mm[Hg] FriAugust 01 22:53:11 EDT 2024 Pulse Oximetry 95.00 % FriAugust 01 22:53 :11 EDT 2024 Heart Rate 78.00 /min FriAugust 01 22:53 :11 EDT 2024 Body temperature 97.80 [degF] FriAugust 01 22:5 3:11 EDT 2024 Respiratory rate 20.00 /min FriAugust 01 22:5 3:11 EDT 2024 Body weight 237.10 [lb_av] FriAugust 01 10:34 :19 EDT 2024 Systolic Blood Pressure 146.00 mm[Hg] FriAugust 01 09:01:48 EDT 2024 Diastolic Blood Pressure 72.00 mm[Hg] FriAugust 01 09:01:48 EDT 2024 Heart Rate 62.00 /min FriAugust 01 09:01 :48 EDT 2024 Systolic Blood Pressure 146.00 mm[Hg] FriAugust 01 09:01:10 EDT 2024 Diastolic Blood Pressure 72.00 mm[Hg] FriAugust 01 09:01:10 EDT 2024 Pulse Oximetry 95.00 % FriAugust 01 09:01 :10 EDT 2024 Heart Rate 62.00 /min FriAugust 01 09:01 :10 EDT 2024 Body temperature 97.40 [degF] FriAugust 01 09:0 1:10 EDT 2024 Respiratory rate 18.00 /min FriAugust 01 09:0 1:10 EDT 2024 Systolic Blood Pressure 146.00 mm[Hg] FriAugust 01 08:00:05 EDT 2024 Diastolic Blood Pressure 72.00 mm[Hg] FriAugust 01 08:00:05 EDT 2024 Pulse Oximetry 95.00 % FriAugust 01 08:00 :05 EDT 2024 Heart Rate 62.00 /min FriAugust 01 08:00 :05 EDT 2024 Body temperature 97.40 [degF] FriAugust 01 08:0 0:05 EDT 2024 Respiratory rate 18.00 /min FriAugust 01 08:0 0:05 EDT 2024 Systolic Blood Pressure 152.00 mm[Hg] FriAugust 01 00:22:55 EDT 2024 Diastolic Blood Pressure 68.00 mm[Hg] FriAugust 01 00:22:55 EDT 2024 Pulse Oximetry 95.00 % FriAugust 01 00:22 :55 EDT 2024 Heart Rate 79.00 /min FriAugust 01 00:22 :55 EDT 2024 Body temperature 97.30 [degF] FriAugust 01 00:2 2:55 EDT 2024 Respiratory rate 22.00 /min FriAugust 01 00:2 2:55 EDT 2024 Body weight 238.40 [lb_av] FriJuly 31 14:40 :44 EDT 2024 Systolic Blood Pressure 171.00 mm[Hg] FriJuly 31 09:50:39 EDT 2024 Diastolic Blood Pressure 77.00 mm[Hg] FriJuly 31 09:50:39 EDT 2024 Pulse Oximetry 97.00 % FriJuly 31 09:50 :39 EDT 2024 Heart Rate 77.00 /min FriJuly 31 09:50 :39 EDT 2024 Body temperature 97.20 [degF] FriJuly 31 09:5 0:39 EDT 2024 Respiratory rate 18.00 /min FriJuly 31 09:5 0:39 EDT 2024 Systolic Blood Pressure 171.00 mm[Hg] FriJuly 31 09:07:13 EDT 2024 Diastolic Blood Pressure 77.00 mm[Hg] FriJuly 31 09:07:13 EDT 2024 Heart Rate 77.00 /min FriJuly 31 09:07 :13 EDT 2024 Systolic Blood Pressure 136.00 mm[Hg] FriJuly 31 01:04:50 EDT 2024 Diastolic Blood Pressure 76.00 mm[Hg] FriJuly 31 01:04:50 EDT 2024 Pulse Oximetry 96.00 % FriJuly 31 01:04 :50 EDT 2024 Heart Rate 96.00 /min FriJuly 31 01:04 :50 EDT 2024 Body temperature 97.80 [degF] FriJuly 31 01:0 4:50 EDT 2024 Respiratory rate 18.00 /min FriJuly 31 01:0 4:50 EDT 2024 Body weight 236.60 [lb_av] FriJuly 30 11:52 :02 EDT 2024 Systolic Blood Pressure 107.00 mm[Hg] FriJuly 30 09:42:41 EDT 2024 Diastolic Blood Pressure 71.00 mm[Hg] FriJuly 30 09:42:41 EDT 2024 Pulse Oximetry 99.00 % Fri May 23 09:42 :41 EDT 2024 Heart Rate 69.00 /min FriJuly 30 09:42 :41 EDT 2024 Body temperature 97.40 [degF] FriJuly 30 09:4 2:41 EDT 2024 Respiratory rate 18.00 /min FriJuly 30 09:4 2:41 EDT 2024 Systolic Blood Pressure 107.00 mm[Hg] FriJuly 30 09:32:43 EDT 2024 Diastolic Blood Pressure 71.00 mm[Hg] FriJuly 30 09:32:43 EDT 2024 Heart Rate 69.00 /min FriJuly 30 09:32 :43 EDT 2024 Systolic Blood Pressure 155.00 mm[Hg] FriJuly 30 01:55:54 EDT 2024 Diastolic Blood Pressure 76.00 mm[Hg] FriJuly 30 01:55:54 EDT 2024 Pulse Oximetry 98.00 % FriJuly 30 01:55 :54 EDT 2024 Heart Rate 82.00 /min FriJuly 30 01:55 :54 EDT 2024 Body temperature 97.40 [degF] FriJuly 30 01:5 5:54 EDT 2024 Respiratory rate 18.00 /min FriJuly 30 01:5 5:54 EDT 2024 Systolic Blood Pressure 185.00 mm[Hg] FriJuly 29 09:58:45 EDT 2024 Diastolic Blood Pressure 81.00 mm[Hg] FriJuly 29 09:58:45 EDT 2024 Heart Rate 81.00 /min FriJuly 29 09:58 :45 EDT 2024 Systolic Blood Pressure 152.00 mm[Hg] FriJuly 29 06:55:25 EDT 2024 Diastolic Blood Pressure 66.00 mm[Hg] FriJuly 29 06:55:25 EDT 2024 Pulse Oximetry 99.00 % FriJuly 29 06:55 :25 EDT 2024 Heart Rate 69.00 /min FriJuly 29 06:55 :25 EDT 2024 Body temperature 97.30 [degF] FriJuly 29 06:5 5:25 EDT 2024 Respiratory rate 18.00 /min FriJuly 29 06:5 5:25 EDT 2024 Body Height 64.00 [in_i] FriJuly 28 18:01 :53 EDT 2024 Body weight 239.20 [lb_av] FriJuly 28 13:54 :26 EDT 2024 Systolic Blood Pressure 145.00 mm[Hg] FriJuly 28 09:16:53 EDT 2024 Diastolic Blood Pressure 81.00 mm[Hg] FriJuly 28 09:16:53 EDT 2024 Heart Rate 79.00 /min FriJuly 28 09:16 :53 EDT 2024 Systolic Blood Pressure 145.00 mm[Hg] FriJuly 28 08:33:23 EDT 2024 Diastolic Blood Pressure 81.00 mm[Hg] FriJuly 28 08:33:23 EDT 2024 Pulse Oximetry 93.00 % FriJuly 28 08:33 :23 EDT 2024 Heart Rate 79.00 /min FriJuly 28 08:33 :23 EDT 2024 Body temperature 97.50 [degF] FriJuly 28 08:3 3:23 EDT 2024 Respiratory rate 18.00 /min FriJuly 28 08:3 3:23 EDT 2024 Systolic Blood Pressure 145.00 mm[Hg] FriJuly 28 07:47:33 EDT 2024 Diastolic Blood Pressure 81.00 mm[Hg] FriJuly 28 07:47:33 EDT 2024 Pulse Oximetry 93.00 % FriJuly 28 07:47 :33 EDT 2024 Heart Rate 79.00 /min FriJuly 28 07:47 :33 EDT 2024 Body temperature 97.50 [degF] FriJuly 28 07:4 7:33 EDT 2024 Respiratory rate 18.00 /min FriJuly 28 07:4 7:33 EDT 2024 Systolic Blood Pressure 162.00 mm[Hg] FriJuly 28 01:20:30 EDT 2024 Diastolic Blood Pressure 77.00 mm[Hg] FriJuly 28 01:20:30 EDT 2024 Pulse Oximetry 92.00 % FriJuly 28 01:20 :30 EDT 2024 Heart Rate 80.00 /min FriJuly 28 01:20 :30 EDT 2024 Body temperature 98.30 [degF] FriJuly 28 01:2 0:30 EDT 2024 Respiratory rate 18.00 /min FriJuly 28 01:2 0:30 EDT 2024 Body weight 238.20 [lb_av] FriJuly 27 14:35 :54 EDT 2024 Systolic Blood Pressure 156.00 mm[Hg] FriJuly 27 11:14:21 EDT 2024 Diastolic Blood Pressure 77.00 mm[Hg] FriJuly 27 11:14:21 EDT 2024 Pulse Oximetry 92.00 % FriJuly 27 11:14 :21 EDT 2024 Heart Rate 76.00 /min FriJuly 27 11:14 :21 EDT 2024 Body temperature 97.80 [degF] FriJuly 27 11:1 4:21 EDT 2024 Respiratory rate 18.00 /min FriJuly 27 11:1 4:21 EDT 2024 Systolic Blood Pressure 156.00 mm[Hg] FriJuly 27 08:50:18 EDT 2024 Diastolic Blood Pressure 77.00 mm[Hg] FriJuly 27 08:50:18 EDT 2024 Heart Rate 76.00 /min FriJuly 27 08:50 :18 EDT 2024 Systolic Blood Pressure 156.00 mm[Hg] FriJuly 27 08:00:14 EDT 2024 Diastolic Blood Pressure 77.00 mm[Hg] FriJuly 27 08:00:14 EDT 2024 Pulse Oximetry 92.00 % FriJuly 27 08:00 :14 EDT 2024 Heart Rate 76.00 /min FriJuly 27 08:00 :14 EDT 2024 Body temperature 97.80 [degF] FriJuly 27 08:0 0:14 EDT 2024 Respiratory rate 18.00 /min FriJuly 27 08:0 0:14 EDT 2024 Systolic Blood Pressure 127.00 mm[Hg] FriJuly 27 00:42:10 EDT 2024 Diastolic Blood Pressure 84.00 mm[Hg] FriJuly 27 00:42:10 EDT 2024 Pulse Oximetry 96.00 % FriJuly 27 00:42 :10 EDT 2024 Heart Rate 81.00 /min FriJuly 27 00:42 :10 EDT 2024 Body temperature 97.50 [degF] FriJuly 27 00:4 2:10 EDT 2024 Respiratory rate 20.00 /min FriJuly 27 00:4 2:10 EDT 5 Body weight 238.80 [lb_av] FriJuly 26 16:28 :29 EDT 2024 Systolic Blood Pressure 150.00 mm[Hg] FriJuly 26 13:33:27 EDT 2024 Diastolic Blood Pressure 79.00 mm[Hg] FriJuly 26 13:33:27 EDT 2024 Pulse Oximetry 95.00 % FriJuly 26 13:33 :27 EDT 2024 Heart Rate 69.00 /min FriJuly 26 13:33 :27 EDT 2024 Body temperature 97.60 [degF] FriJuly 26 13:3 3:27 EDT 2024 Respiratory rate 18.00 /min FriJuly 26 13:3 3:27 EDT 2024 Systolic Blood Pressure 150.00 mm[Hg] FriJuly 26 10:11:03 EDT 2024 Diastolic Blood Pressure 79.00 mm[Hg] FriJuly 26 10:11:03 EDT 2024 Heart Rate 69.00 /min FriJuly 26 10:11 :03 EDT 2024 Systolic Blood Pressure 160.00 mm[Hg] FriJuly 25 21:17:08 EDT 2024 Diastolic Blood Pressure 61.00 mm[Hg] FriJuly 25 21:17:08 EDT 2024 Pulse Oximetry 97.00 % FriJuly 25 21:17 :08 EDT 2024 Heart Rate 81.00 /min FriJuly 25 21:17 :08 EDT 2024 Body temperature 97.80 [degF] FriJuly 25 21:1 7:08 EDT 2024 Respiratory rate 20.00 /min FriJuly 25 21:1 7:08 EDT 2024 Body weight 240.00 [lb_av] FriJuly 25 18:00 :55 EDT 2024 Systolic Blood Pressure 154.00 mm[Hg] FriJuly 25 11:33:24 EDT 2024 Diastolic Blood Pressure 78.00 mm[Hg] FriJuly 25 11:33:24 EDT 2024 Systolic Blood Pressure 154.00 mm[Hg] FriJuly 25 11:33:24 EDT 2024 Diastolic Blood Pressure 78.00 mm[Hg] FriJuly 25 11:33:24 EDT 2024 Pulse Oximetry 98.00 % FriJuly 25 11:33 :24 EDT 2024 Heart Rate 77.00 /min FriJuly 25 11:33 :24 EDT 2024 Heart Rate 77.00 /min FriJuly 25 11:33 :24 EDT 2024 Body temperature 97.70 [degF] FriJuly 25 11:3 3:24 EDT 2024 Respiratory rate 18.00 /min FriJuly 25 11:3 3:24 EDT 2024 Systolic Blood Pressure 144.00 mm[Hg] FriJuly 24 22:31:16 EDT 2024 Diastolic Blood Pressure 74.00 mm[Hg] FriJuly 24 22:31:16 EDT 2024 Pulse Oximetry 95.00 % FriJuly 24 22:31 :16 EDT 2024 Heart Rate 83.00 /min FriJuly 24 22:31 :16 EDT 2024 Body temperature 97.60 [degF] FriJuly 24 22:3 1:16 EDT 2024 Respiratory rate 20.00 /min FriJuly 24 22:3 1:16 EDT 2024 Body weight 239.90 [lb_av] FriJuly 24 14:17 :28 EDT 2024 Systolic Blood Pressure 144.00 mm[Hg] FriJuly 24 10:25:10 EDT 2024 Diastolic Blood Pressure 72.00 mm[Hg] FriJuly 24 10:25:10 EDT 2024 Systolic Blood Pressure 144.00 mm[Hg] FriJuly 24 10:25:10 EDT 2024 Diastolic Blood Pressure 72.00 mm[Hg] FriJuly 24 10:25:10 EDT 2024 Pulse Oximetry 97.00 % FriJuly 24 10:25 :10 EDT 2024 Heart Rate 74.00 /min FriJuly 24 10:25 :10 EDT 2024 Heart Rate 74.00 /min FriJuly 24 10:25 :10 EDT 2024 Body temperature 97.90 [degF] FriJuly 24 10:2 5:10 EDT 2024 Respiratory rate 18.00 /min FriJuly 24 10:2 5:10 EDT 2024 Systolic Blood Pressure 158.00 mm[Hg] FriJuly 23 22:38:27 EDT 2024 Diastolic Blood Pressure 78.00 mm[Hg] FriJuly 23 22:38:27 EDT 2024 Pulse Oximetry 97.00 % FriJuly 23 22:38 :27 EDT 2024 Heart Rate 88.00 /min FriJuly 23 22:38 :27 EDT 2024 Body temperature 98.00 [degF] FriJuly 23 22:3 8:27 EDT 2024 Respiratory rate 18.00 /min FriJuly 23 22:3 8:27 EDT 2024 Body weight 238.40 [lb_av] FriJuly 23 17:21 :07 EDT 2024 Systolic Blood Pressure 128.00 mm[Hg] FriJuly 23 09:03:19 EDT 2024 Diastolic Blood Pressure 73.00 mm[Hg] FriJuly 23 09:03:19 EDT 2024 Pulse Oximetry 93.00 % FriJuly 23 09:03 :19 EDT 2024 Heart Rate 84.00 /min FriJuly 23 09:03 :19 EDT 2024 Body temperature 98.00 [degF] FriJuly 23 09:0 3:19 EDT 2024 Respiratory rate 20.00 /min FriJuly 23 09:0 3:19 EDT 2024 Systolic Blood Pressure 128.00 mm[Hg] FriJuly 23 08:39:14 EDT 2024 Diastolic Blood Pressure 73.00 mm[Hg] FriJuly 23 08:39:14 EDT 2024 Heart Rate 84.00 /min FriJuly 23 08:39 :14 EDT 2024 Systolic Blood Pressure 123.00 mm[Hg] Billie July 22 22:51:14 EDT 2024 Diastolic Blood Pressure 63.00 mm[Hg] Billie July 22 22:51:14 EDT 2024 Pulse Oximetry 92.00 % FriJuly 22 22:51 :14 EDT 2024 Heart Rate 84.00 /min FriJuly 22 22:51 :14 EDT 2024 Body temperature 97.80 [degF] FriJuly 22 22:5 1:14 EDT 2024 Respiratory rate 18.00 /min FriJuly 22 22:5 1:14 EDT 2024 Systolic Blood Pressure 160.00 mm[Hg] FriJuly 22 09:12:34 EDT 2024 Diastolic Blood Pressure 84.00 mm[Hg] FriJuly 22 09:12:34 EDT 2024 Systolic Blood Pressure 160.00 mm[Hg] FriJuly 22 09:12:34 EDT 2024 Diastolic Blood Pressure 84.00 mm[Hg] FriJuly 22 09:12:34 EDT 2024 Pulse Oximetry 94.00 % FriJuly 22 09:12 :34 EDT 2024 Heart Rate 81.00 /min FriJuly 22 09:12 :34 EDT 2024 Heart Rate 81.00 /min FriJuly 22 09:12 :34 EDT 2024 Body temperature 97.80 [degF] FriJuly 22 09:1 2:34 EDT 2024 Respiratory rate 18.00 /min FriJuly 22 09:1 2:34 EDT 2024 Systolic Blood Pressure 160.00 mm[Hg] FriJuly 22 08:13:02 EDT 2024 Diastolic Blood Pressure 84.00 mm[Hg] FriJuly 22 08:13:02 EDT 2024 Pulse Oximetry 94.00 % FriJuly 22 08:13 :02 EDT 2024 Heart Rate 81.00 /min FriJuly 22 08:13 :02 EDT 2024 Body temperature 97.80 [degF] FriJuly 22 08:1 3:02 EDT 2024 Respiratory rate 18.00 /min FriJuly 22 08:1 3:02 EDT 2024 Systolic Blood Pressure 156.00 mm[Hg] FriJuly 21 22:34:43 EDT 2024 Diastolic Blood Pressure 68.00 mm[Hg] FriJuly 21 22:34:43 EDT 2024 Pulse Oximetry 94.00 % FriJuly 21 22:34 :43 EDT 2024 Heart Rate 90.00 /min FriJuly 21 22:34 :43 EDT 2024 Body temperature 98.20 [degF] FriJuly 21 22:3 4:43 EDT 2024 Respiratory rate 18.00 /min FriJuly 21 22:3 4:43 EDT 2024 Systolic Blood Pressure 182.00 mm[Hg] FriJuly 21 09:43:22 EDT 2024 Diastolic Blood Pressure 60.00 mm[Hg] FriJuly 21 09:43:22 EDT 2024 Heart Rate 88.00 /min FriJuly 21 09:43 :22 EDT 2024 Systolic Blood Pressure 182.00 mm[Hg] FriJuly 21 08:37:54 EDT 2024 Diastolic Blood Pressure 60.00 mm[Hg] FriJuly 21 08:37:54 EDT 2024 Pulse Oximetry 93.00 % FriJuly 21 08:37 :54 EDT 2024 Heart Rate 88.00 /min FriJuly 21 08:37 :54 EDT 2024 Body temperature 97.80 [degF] FriJuly 21 08:3 7:54 EDT 2024 Respiratory rate 18.00 /min FriJuly 21 08:3 7:54 EDT 2024 Systolic Blood Pressure 182.00 mm[Hg] FriJuly 21 08:06:05 EDT 2024 Diastolic Blood Pressure 60.00 mm[Hg] FriJuly 21 08:06:05 EDT 2024 Pulse Oximetry 93.00 % FriJuly 21 08:06 :05 EDT 2024 Heart Rate 88.00 /min FriJuly 21 08:06 :05 EDT 2024 Body temperature 97.80 [degF] FriJuly 21 08:0 6:05 EDT 2024 Respiratory rate 18.00 /min FriJuly 21 08:0 6:05 EDT 2024 Systolic Blood Pressure 131.00 mm[Hg] FriJuly 20 23:44:40 EDT 2024 Diastolic Blood Pressure 79.00 mm[Hg] FriJuly 20 23:44:40 EDT 2024 Pulse Oximetry 93.00 % FriJuly 20 23:44 :40 EDT 2024 Heart Rate 99.00 /min FriJuly 20 23:44 :40 EDT 2024 Body temperature 98.30 [degF] FriJuly 20 23:4 4:40 EDT 2024 Respiratory rate 20.00 /min FriJuly 20 23:4 4:40 EDT 2024 Reason for Referral
--- OUTSIDE RECORDS SUMMARY | 2024-09-29 10:52 | XMS_ITS ---
Author Name Auto Generated, Auto Generated Organization [facility] [facility] ices Address [address] [place] [address] Phone [phone] Care Team Providers Care Quality Assurance Advisor Name Role Phone Carmen Krishnamurthy Unavailable [phone] Selma Stevens Unavailable [phone] Sharri Heaton Unavailable [phone] Functional Status No Results Mental Status No Results Allergies and Intolerances Name Onset Date Reaction Severity fluticasone (Allergy) FriJuly 20 13:12:00 EDT 2024 Abd ominal pain Mild spironolactone (Allergy) FriJuly 20 13:11:00 EDT 2024 amlodipine (Allergy) FriJuly 20 13:10:00 EDT 5 lisinopril (Allergy) FriJuly 20 13:10:00 EDT 5 Encounters Program Name Primary Diagnosis Admission Date/Time Dis charge Date/Time [facility] FriJuly 20 08:30:00 EDT [...] 2024 * End Date: * Text: * 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 (12)* Code: * Start Date: FriJuly 29 00:00:00 EDT 2024 * End Date: * Text: [id number] Jackeline receives a therapeutic diet with elevated [...] * End Date: * Text: [employer] Amy Viveors has family/friends who are supportive. * [employer] [...] 4:39 EDT 2024 Body weight 233.40 [lb_av] [place] Aug 15 14:14 :52 EDT 2024 Systolic Blood Pressure 155.00 mm[Hg] [place] Aug 15 09:41:08 EDT 2024 Diastolic Blood Pressure 86.00 mm[Hg] [place] Aug 15 09:41:08 EDT 2024 Heart Rate 74.00 /min [place] Aug 15 09:41 :08 EDT 2024 Systolic Blood Pressure 155.00 mm[Hg] [place] Aug 15 09:21:47 EDT 2024 Diastolic Blood Pressure 86.00 mm[Hg] [place] Aug 15 09:21:47 EDT 2024 Pulse Oximetry 97.00 % [place] Aug 15 09:21 :47 EDT 2024 Heart Rate 74.00 /min [place] Aug 15 09:21 :47 EDT 2024 Body temperature 97.50 [degF] [place] Aug 15 09:2 1:47 EDT 2024 Respiratory rate 18.00 /min [place] Aug 15 09:2 1:47 EDT 2024 Systolic Blood Pressure 144.00 mm[Hg] [facility] Aug 14 23:26:17 EDT 2024 Diastolic Blood Pressure 66.00 mm[Hg] [facility] Aug 14 23:26:17 EDT 2024 Pulse Oximetry 95.00 % [facility] Aug 14 23:26 :17 EDT 2024 Heart Rate 68.00 /min [facility] Aug 14 23:26 :17 EDT 2024 Body temperature 98.00 [degF] [facility] Aug 14 23:2 6:17 EDT 2024 Respiratory rate 16.00 /min [facility] Aug 14 23:2 6:17 EDT 2024 Body weight 238.60 [lb_av] [facility] Aug 14 14:19 :55 EDT 2024 Systolic [...]
== END 2024-09-29 10:42 | disposition home or self-care (01) ==
LOC: ANHIMG 10:44
PROVIDERS: PCP Family Medicine; Visit Provider Family Medicine
DX: Z12.31 Encounter for screening mammogram for malignant neoplasm of breast (principal)
CPT/HCPCS: 77063; 77067

== ENCOUNTER 2024-12-08 10:34 | Outpatient (CLI) | payer OTHER, SELFPAY ==
--- OUTSIDE RECORDS SUMMARY | 2008-12-29 07:30 | XMS_ITS | Continuity of Care Document ---
Author Organization [facility] Address [address] [place] [address] [address] [place] [address] Phone Care Team Providers Care Dryland Farmer Name Role Phone Ross OD, Ernie Unavailable Unavailable Procedures Procedure Date Eye Exam & Treatment Refraction Eye Exam & Treatment Refraction Advance Directives Directive Yes / No Effective Date File Name No Information Encounters Encounter Description Practice Location Reason(s) For Visit Diagnoses Date Provider Providers Copied on Encounter [facility], [address] [place] [address] [address], [place], [place], [id number], tel:[phone] [facility] No Information Oct-2 2-200 9 Ross OD Ernie. [address] , [address], [place], [place], [facility], [place]. tel:[phone] [facility], [address] [place] [address] [address], [place], [place], [id number], tel:[phone] [facility] No Information Oct-1 6-200 8 Ross OD Ernie. [address] , [address], [place], [address], [place]. tel:[phone] Family History Family Member Type Diagnosis Age At Onset No Information Payers Payer name Insurance type Covered alliance party ID Authoriza tiorlin(s) [employer] Plan CI [id number] Social History Type Description Quantity Date Captured Comments Sex Female Smoking Status No Information Chief Complaint And Reason For Visit No Information Reason For Referral Reason For Referral No Information History Of Present Illness Encounter Date Complaint History Of Prese nt Illness No Information Functional Status Date Functional Assessmen t No Information Instructions Date Instruction Additional Infor mation No Information Assessments Type Assessment Date No Information Patient Care Teams Name Effective Dates (start - stop) Status Members No Information
--- OUTSIDE RECORDS SUMMARY | 2024-12-08 11:18 | XMS_ITS | Clinical Summary ---
Author Organization [facility] Address [address], [address] [address] Phone Care Team Providers Care Soaker Meat Name Role Phone Carlos Alberto Clay MD Primary Care Provider [phone] Ernie Saba DO Unavailable [phone] Immunizations Immunization Administration Dates Next Due [...] years) (1 of 1 - PCV) 1994 Medicare Initial AWV [id number] 07/08/2012 Respiratory Syncytial Virus (RSV) Immunization (Adult) (1 - 1-dose 75+ series) 2019 Influenza Immunization (#1) 2024 12/21/2019 SARS-COV-2 Immunization ( - 2024- season) 2024 12/03/2020, 05/08/2020, 04/14/2020 Colonoscopy Discontinued 03/30/2015 Colorectal Cancer Screening Discontinued [...] Recently Relevant to Health Maintenance Insurance MEDICARE [facility] Care Teams Soaker Meat Relationship Specialty Start Date End Date Carlos Alberto Clay MD [address] [place] [address] [address] [place], [place] [id number] PCP - General Family Medicine 03/30/15 Ernie Saba DO [address] [place] [id number] Gastroenterology 03/30/15
--- OUTSIDE RECORDS SUMMARY | 2024-12-08 11:18 | XMS_ITS | Clinical Summary ---
Author Organization [facility] Address [address] [place] [id number] Care Team Providers Care Heading Repairer Name Role Phone Sharri Clay MD Primary Care Provider [phone] Encounters Date Type Department Care Team Description 11/29/2024 12:15 PM CDT - 11/29/2024 11:59 PM CDT Hospital Encounter 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 Discharge Disposition: Home or Self Care (Routine Discharge) 11/29/2024 Travel from Last 3 Months Social History Tobacco Use Types Packs/Day Years Used Date Smoking Tobacco: Never Assessed Comments Unknown Sex and Gender Information Value Date Recorded Sex Assigned at Female 11/29/2024 12:11 PM CDT Legal Sex Female 6:59 PM CDT Gender Identity Not on file Sexual Orientation Not on file Plan of Treatment Health Maintenance Due Date Last Done Comments Annual Medicare Wellness Visit 2009 Dexa Scan (General) 2009 COVID-19 Vaccine (2024-2 6 season) 2024 12/03/2020, 05/08/2020, 04/14/2020 DTaP, Tdap and Td Vaccines ( 4 - Td or Tdap) 06/18/2028 06/18/2018, 06/18/2018, 12/15/2009 Zoster Vaccines Completed 10/19/2018, 08/10/2018, 08/16/2009 RSV Immunization or 60+ Years Completed 12/17/2023 Pneumococcal Vaccine: 50+ Years Completed 06/02/2024, 12/07/2014, 12/15/2009 Meningococcal B Vaccine Aged Out No l onger eligible based on patient's age to complete this topic Meningococcal Vaccine Aged Out No alvaro tobias eligible based on patient's age to complete this topic RSV Immunizations Under 20 Months Aged Out No longer eligible b ased on patient's age to complete this topic Procedures Procedure Name Priority Date/Time Associated Diagnosis Comments MRI LUMB SPINE WO CON Routine 11/29/2024 1:14 PM CDT Low back pain, unspecified Lumbar spondylosis from Last 3 Months Results * MRI LUMB SPINE WO CON (11/29/2024 1:14 PM CDT) Anatomical Region Laterality Modality Spine Magnetic Resonan ce 12/03/2024 3:30 PM CDT Impressions 12/03/2024 3:34 PM CDT IMPRESSION: Moderate to marked multilevel lumbar spondylosis greatest at L3-4, as described above. Ordered By: MER DANG Interpreted By: Sang Mendoza MD, 12/03/2024 3:30 PM Narrative 12/03/2024 3:34 PM [address] [address] Examination: MRI LUMB SPINE WO CON, 11/29/2024 1:02 PM. Technique: Multiplanar multisequence magnetic resonance images of the lumbar spine were obtained without intravenous contrast. Clinical history: Low back pain, unspecified, Spondylosis without myelopathy or radiculopathy, lumbar regionLow back pain, unspecified Comparison: None available Findings: There are 5 nonrib-bearing lumbar-type vertebral bodies. The lumbar vertebral bodies and facets are well aligned. The lumbar vertebral body heights are preserved. There is approximately 37 degrees of levoconvex scoliosis of the lumbar spine extending from the superior endplate of T12 to the inferior endplate of L3 (best seen on the saved bowles image). Intervertebral disc height loss at each level. The conus medullaris terminates at L1, normal . The cauda equina has a normal distribution within the thecal sac. T12-L1: Disc bulge impressing the ventral thecal sac. Mild spinal canal stenosis. Moderate facet hypertrophy. Mild to moderate right neural foraminal stenosis. Mild left neural foraminal stenosis. L1-2: Posterior endplate marginal osteophytes impress the ventral thecal sac. Mild spinal canal stenosis. Moderate facet hypertrophy. Mild left neural foraminal stenosis. Moderate right neural foraminal stenosis. L2-3: Posterior endplate marginal osteophytes impress the ventral thecal sac. Mild to moderate spinal canal stenosis. Moderate facet hypertrophy. Mild left neural foraminal stenosis. Moderate right neural foraminal stenosis. L3-4: Disc bulge impressing the ventral thecal sac. Moderate to severe spinal canal stenosis. Moderate to marked facet hypertrophy. Severe left neural foraminal stenosis. Mild to moderate right neural foraminal stenosis. L4-5: Disc bulge impressing the ventral thecal sac. Moderate spinal canal stenosis. Moderate to marked facet hypertrophy. Severe left neural foraminal stenosis. Moderate right neural foraminal stenosis. L5-S1: Disc bulge impressing the ventral thecal sac. Mild spinal canal stenosis. Moderate to marked facet hypertrophy, left greater than right. Moderate to severe bilateral neural foraminal stenosis. Procedure Note Sang Mendoza MD - 12/03/[address] [id number] Examination: MRI LUMB SPINE WO CON, 11/29/2024 1:02 PM. Technique: Multiplanar multisequence magnetic resonance images of thelumbar spine were obtained without intravenous contrast. Clinical history: Low back pain, unspecified, Spondylosis withoutmyelopathy or radiculopathy, lumbar regionLow back pain, unspecified Comparison: None available Findings: There are 5 nonrib-bearing lumbar-type vertebral bodies. The lumbarvertebral bodies and facets are well aligned. The lumbar vertebral bodyheights are preserved. There is approximately 37 degrees of levoconvexscoliosis of the lumbar spine extending from the superior endplate of T12to the inferior endplate of L3 (best seen on the saved bowles image).Intervertebral disc height loss at each level. The conus medullaristerminates at L1, normal . The cauda equina has a normal distributionwithin the thecal sac. T12-L1: Disc bulge impressing the ventral thecal sac. Mild spinal canalstenosis. Moderate facet hypertrophy. Mild to moderate right neuralforaminal stenosis. Mild left neural foraminal stenosis. L1-2: Posterior endplate marginal osteophytes impress the ventral thecalsac. Mild spinal canal stenosis. Moderate facet hypertrophy. Mild leftneural foraminal stenosis. Moderate right neural foraminal stenosis. L2-3: Posterior endplate marginal osteophytes impress the ventral thecalsac. Mild to moderate spinal canal stenosis. Moderate facet hypertrophy.Mild left neural foraminal stenosis. Moderate right neural foraminalstenosis. L3-4: Disc bulge impressing the ventral thecal sac. Moderate to severespinal canal stenosis. Moderate to marked facet hypertrophy. Severe leftneural foraminal stenosis. Mild to moderate right neural foraminalstenosis. L4-5: Disc bulge impressing the ventral thecal sac. Moderate spinal canalstenosis. Moderate to marked facet hypertrophy. Severe left neuralforaminal stenosis. Moderate right neural foraminal stenosis. L5-S1: Disc bulge impressing the ventral thecal sac. Mild spinal canalstenosis. Moderate to marked facet hypertrophy, left greater than right.Moderate to severe bilateral neural foraminal stenosis. IMPRESSION: Moderate to marked multilevel lumbar spondylosis greatest at L3-4, asdescribed above. Ordered By: MER DANG Interpreted By: Sang Mendoza MD, 12/03/2024 3:30 PM Mer Dang MRI Final Result from Last 3 Months Insurance [employer] Care Teams Heading Repairer Relationship Specialty Start Date End Date Sharri Clay MD [facility] [facility] [facility] [address] [place] [address] [place] [id number] PCP - General FAMILY PRACTICE 11/26/24
[2024-12-08 12:58] LABS: Hematocrit 44.5 % (37.0-47.0); Hemoglobin 13.9 g/dL (12.0-15.0); Immature Granulocyte Percent A 0.2 % (0-0.5); Lymphocytes Absolute Auto 2.27 K/mm3 (0.9-3.2); Mean Corpuscular HGB Conc 31.2 g/dl (32-36); Mean Corpuscular Hemoglobin 28.3 pg (26-34); Mean Corpuscular Volume 90.4 fl (80-100); Nucleated Red Blood Cells Absolute Auto 0.000 K/mm3 (0.0-0.012); Nucleated Red Blood Cells Perc 0.0 % (0.0-0.2); Platelet Count Result 246 k/mm3 (150-375); Red Blood Count 4.92 M/mm3 (4.2-5.4); White Blood Count 6.0 K/mm3 (4.5-10.0)
[2024-12-08 13:12] LABS: Alanine Aminotransferase 28 U/L (6-35); Albumin Level 4.1 g/dL (3.5-5.1); Alkaline Phosphatase 80 U/L (38-126); Anion Gap 5 mmol/L (4-12); Aspartate Amino Transferase 51 U/L (14-36); Bilirubin,Total 0.7 mg/dL (0.2-1.3); Calcium 9.6 mg/dL (8.4-10.2); Carbon Dioxide 27 mmol/L (22-30); Chloride 104 mmol/L (98-107); Cholesterol 187 mg/dL (0-200); Glucose 105 mg/dL (65-110); HDL Direct 46 mg/dL; Potassium 4.4 mmol/L (3.4-5.0); Sodium 136 mmol/L (137-145); Triglycerides 258 mg/dL (<150)
[2024-12-08 13:20] LABS: Blood Urea Nitrogen 11 mg/dL (7-17); Estimated Glomerular Filt Rate > 60; Total Protein 7.4 g/dL (6.3-8.2)
[2024-12-08 13:51] LABS: Thyroid Stimulating Hormone 1.010 uIU/mL (0.465-4.680)
[2024-12-08 17:12] LABS: Hemoglobin A1C 6.0 % (<5.7)
== END 2024-12-08 10:35 | disposition home or self-care (01) ==
PROVIDERS: PCP Family Medicine; Visit Provider Family Medicine
DX: E05.90 Thyrotoxicosis, unspecified without thyrotoxic crisis or storm (principal); R73.03 Prediabetes; I10 Essential (primary) hypertension; E03.9 Hypothyroidism, unspecified; R74.8 Abnormal levels of other serum enzymes
CPT/HCPCS: 36415; 80053; 80061; 83036; 84443; 85025

== ENCOUNTER 2024-12-15 13:58 | Outpatient (NON) | payer OTHER, SELFPAY ==
[2024-12-15 19:59] LABS: MALB Creatinine Ratio 26.8 mg/g (0-30)
== END 2024-12-15 13:59 | disposition home or self-care (01) ==
LOC: ANHGOSHLAB 13:59
PROVIDERS: PCP Family Medicine; Visit Provider Family Medicine
DX: R73.03 Prediabetes (principal); R74.8 Abnormal levels of other serum enzymes; E03.9 Hypothyroidism, unspecified
CPT/HCPCS: 82043

== ENCOUNTER 2025-01-05 14:51 | Outpatient (CLI) | payer OTHER, SELFPAY ==
--- OUTSIDE RECORDS SUMMARY | 2008-12-29 07:30 | XMS_ITS | Continuity of Care Document ---
Author Organization [facility] Address [address] [place] [address] [address] [place] [address] Phone Care Team Providers Care Avionics Integration Engineer Name Role Phone Ross OD, Ernie Unavailable Unavailable Procedures Procedure Date Eye Exam & Treatment Refraction Eye Exam & Treatment Refraction Advance Directives Directive Yes / No Effective Date File Name No Information Encounters Encounter Description Practice Location Reason(s) For Visit Diagnoses Date Provider Providers Copied on Encounter [facility], [address] [place] [address] [address], [place], [place], [id number], tel:[phone] [facility] No Information Oct-2 2-200 9 Ross OD Ernie. [address] , [address], [place], [place], [facility], [place]. tel:[phone] [facility], [address] [place] [address] [address], [place], [place], [id number], tel:[phone] [facility] No Information Oct-1 6-200 8 Ross OD Ernie. [address] , [address], [place], [address], [place]. tel:[phone] Family History Family Member Type Diagnosis Age At Onset No Information Payers Payer name Insurance type Covered green party ID Authoriza tiorlin(s) [employer] Vision Plan CI [id number] Social History Type Description Quantity Date Captured [...]
--- OUTSIDE RECORDS SUMMARY | 2025-01-05 16:50 | XMS_ITS | Data Portability ---
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 Labs CBC, CMP, CRP on 08/05. Not available 08/04/2024 15:57:30 08/09/2024 08/09/2024 Labs (CBC, BMP) on 08/12. Not available 08/09/2024 16:02:09 08/18/2024 08/18/2024 Pt will d/c home on 08/20 with [facility]. Not available 08/18/2024 17:37:51 Plan of Treatment Reminders Order Date Submit Date Provider Last Modified By Organization Details Last Modified Time Details Appointments None record ed. Lab None record ed. Referral None record ed. Procedures None record ed. Surgeries None record ed. Imaging None record ed. Medication Orders None record ed. Patient TargetsNo targets recorded. Patient Instructions Encounter Date Encounter Id Patient Instructions Last Modified By Organization Details Last Modified Time 08/03/2024 [id number] I spent 37 minutes providing care to the patient today. More than 50% of that time was spent in discussing the expected course of the disease, discussing prognosis, coordinating care and counseling of the patient/family. Not available 08/03/2024 18:08:54 08/05/2024 [id number] I spent 36 minutes providing care to the patient today. More than 50% of that time was spent in discussing the expected course of the disease, discussing prognosis, coordinating care and counseling of the patient/family. Not available 08/05/2024 13:35:55 08/09/2024 [id number] I spent 36 minutes providing care to the patient today. More than 50% of that time was spent in discussing the expected course of the disease, discussing prognosis, coordinating care and counseling of the patient/family. Not available 08/09/2024 18:02:20 08/12/2024 [id number] I spent 35 minutes providing care to the patient today. More than 50% of that time was spent in discussing the expected course of the disease, discussing prognosis, coordinating care and counseling of the patient/family. Not available 08/12/2024 19:53:17 08/18/2024 [id number] I spent 40 minutes providing care to the patient today. More than 50% of that time was spent in discussing the expected course of the disease, discussing prognosis, coordinating care and counseling of the patient/family. The patient will be discharged home with home health orders of home health RN / PT / OT to evaluate and treat. The patient is homebound because of fall risk and is unable to leave home safely because requires considerable and taxing effort to leave home. The patient requires home health nursing for instruction, observation and assessment; PT for training to restore safe independent functional ambulation in community; and OT for training to improve ability to fulfill ADLs. Please follow-up with your primary care provider within 1 week. Call your primary care provider for instructions or go to the emergency room for new or worsening symptoms. Not available 08/18/2024 17:38:07 Reason for Referral None Reported. Results Created Date Observation Date Name Description Value Unit Range Abnormal Flag Note LastModifiedBy Organization Detail LastModifiedTime Result Notes None recorded. Procedures Surgical History Date Name Laterality Status Provider Name and Address Organization Details Recorded Time Colonoscopy completed Lorene jeffery Count Includes [facility] 07/21/2024 12:35:42 Imaging Results None recorded. Procedure Notes None recorded. Medical Equipment None Reported. Allergies Allergen ID Allergen Name Allergen Category Reaction Reaction Severity Criticality Documentation Date Start Date Code Code System Note Provider Name and Address Organization Details Recorded Time 55000 amlodipin e medicatio n Not available Not available Not available 07/21/2024 48434 RxNorm KAR Nolan Clinical [facility] 5 03:33:57 16469 lisinopri l medicatio n Not available Not available Not available 07/21/2024 43577 [facility] 56923 spironola ctone medicatio n Not available Not available Not available 07/21/2024 9997 [facility] 5 03:34:06 [id number] fluticaso ne Not available Not available Not available Not available 07/21/2024 84377 [facility] 5 03:34:11 Medications Name Sig Start Date Stop Date Status Note LastModified by Organization Details LastModified Time atorvastati n 40 mg tablet Take 1 tablet every day by oral route. active Not Available Not Available No t Available levothyroxi ne 137 mcg tablet Take 1 tablet every day by oral route. active Not Available Not Available No t Available acetaminoph en 325 mg tablet Take 2 tablets every 6 hours by oral route as needed. active Not Available Not Available No t Available trazodone 50 mg tablet Take 1 tablet every day by oral route at bedtime. active Not Available Not Available No t Available triamcinolo ne acetonide 0.5 % topical cream Apply 1 applicati on twice a day by topical route for 7 days. 08/03 completed Stop Date: 07/28 Not Available Not Available Not Available cetirizine 10 mg tablet Take 1 tablet every day by oral route for 7 days. 08/03 completed Stop Date: 07/28 Not Available Not Available Not Available fluconazole 150 mg tablet Take 1 tablet every 72 hours by oral route. 08/09 completed x 2 doses . Stop Date: 08/07 Not Available Not Available Not Available metoprolol succinate ER 50 mg tablet,exte nded release 24 hr Take 1 tablet every day by oral route. active Not Available Not Available No t Available hydrocodone 5 mg-acetamin ophen 325 mg tablet Take 1 tablet every 8 hours by oral route as needed. 2024 active Not Available Not Available Not Avai lable aspirin 81 mg tablet,ketan yed release Take 1 tablet every day by oral route. active Not Available Not Available No t Available omeprazole 20 mg capsule,del ayed release Take 1 capsule every other day by oral route. active Not Available Not Available No t Available Pepcid 20 mg tablet Take 1 tablet every day by oral route. 08/03 completed Stop Date: 07/28 Not Available Not Available Not Available polyethylen e glycol 3350 17 gram/dose oral powder Take 17 g every day by oral route. active Not Available Not Available No t Available doxycycline hyclate 100 mg tablet Take 1 tablet every 12 hours by oral route for 7 days. 07/28 completed Stop Date: 07/27 Not Available Not Available Not Available amoxicillin 500 mg-potassiu m clavulanate 125 mg tablet Take 1 tablet every 8 hours by oral route for 7 days. 07/28 completed Stop Date: 07/27 Not Available Not Available Not Available Senna-S 8.6 mg-50 mg tablet Take 1 tablet every day by oral route at bedtime. active Not Available Not Available No t Available PreserVisio n AREDS 4,296 mcg-226 mg-90 mg capsule Take 1 capsule every day by oral route. active Not Available Not Available No t Available Vitals Date Recorded Body height Heart rate Body temperature Respiratory rate Oxygen saturation Oxygen saturation in Arterial blood by Pulse oximetry Body mass index (BMI) Body weight Systolic And Diastolic Provider Name and Address Organization Details Last Updated DateTime 5 163.83 cm 68 /min 97.4 [degF] 18 /min 99 % 99 % 39.7 kg/m2 505723. 21 g 142/70 mm[Hg] [place] [address] [place], [address], [facility] 5 18:05:23 Date Recorded Body height Heart rate Body temperature Respiratory rate Oxygen saturation Oxygen saturation in Arterial blood by Pulse oximetry Body mass index (BMI) Body weight Systolic And Diastolic Provider Name and Address Organization Details Last Updated DateTime 5 163.83 cm 71 /min 97.4 [degF] 18 /min 98 % 98 % 40 kg/m2 648170. 67 g 129/75 mm[Hg] [place] [address] [place], [address] , [facility] 13:28:51 Date Recorded Body height Heart rate Body temperature Respiratory rate Oxygen saturation Oxygen saturation in Arterial blood by Pulse oximetry Body mass index (BMI) Body weight Systolic And Diastolic Provider Name and Address Organization Details Last Updated DateTime 163.83 cm 76 /min 97.7 [degF] 20 /min 94 % 94 % 40.4 kg/m2 154976. 58 g 118/75 mm[Hg] [place] [address] [place], [address], [facility] 15:58:48 Date Recorded Body height Heart rate Body temperature Respiratory rate Oxygen saturation Oxygen saturation in Arterial blood by Pulse oximetry Body mass index (BMI) Body weight Systolic And Diastolic Provider Name and Address Organization Details Last Updated DateTime 163.83 cm 85 /min 98.1 [degF] 18 /min 98 % 98 % 39.8 kg/m2 690671. 64 g 109/59 mm[Hg] [place] [address] [place], [address], [facility] 17:41:44 Date Recorded Body height Heart rate Body temperature Respiratory rate Oxygen saturation Oxygen saturation in Arterial blood by Pulse oximetry Body mass index (BMI) Body weight Systolic And Diastolic Provider Name and Address Organization Details Last Updated DateTime 163.83 cm 80 /min 97.8 [degF] 18 /min 96 % 96 % 39.9 kg/m2 488343. 52 g 135/67 mm[Hg] [place] [address] [place], [address], [facility] 17:35:16 Social History Question Answer Notes LastModified by Organizat ion Details LastModified Time Tobacco Smoking Status Never Smoker Lorene Tiara godwin, [facility] 07/21/2024 12:39:01 What Is Your Code Status? Full Code [email or web address] Information not available 07/21/2024 Sex: Unknown Functional Status Question Answer Note LastModified by Organizat ion Details LastModified Time Do you use any illicit or recreational drugs? No Information not available 07/23/2024 What is your level of alcohol consumption? Occasional YES 2 DRINKS PER WEEK Information not available 07/23/2024 Mental Status None recorded. Family History Relationship Description Onset Age of this Age Resolved Age Notes LastModified by Organization Details LastModified Time Unspecified Relation Essential hypertension [email or web address] Not available 12:36:32 Unspecified Relation Diabetes mellitus [email or web address] Not available 2024 12:37:32 Mother Arterioscler otic vascular disease [email or web address] Not available 2024 12:38:12 Mother Cerebrovascu lar accident [email or web address] Not available 12:38:48 Father Parkinson's disease [email or web address] Not available 2024 12:38:34 Medical History Condition Response Hypothyroidism Y Hyperlipidemia Y GERD / Reflux Y Hypertension Y Gynecological HistoryNo gynecological history recorded. Obstetrics History GPAL:G 0 P 0 0 0 0 Past Encounters Encounter ID Performer Location Encounter Start Date Encounter Closed Date Diagnosis/Indication Diagnosis SNOMED-CT Code Diagnosis ICD10 Code Diagnosis IMO Codes Diagnosis Note [id number] Sharri Rebolledo, [address] [address] 07/20/2024 22:23:41 07/25/2024 01:56:07 Closed fracture of ankle 12376705 S82.891D [id number] s/p surgical repair per Dr. Carolann payne NW statusfu appointmen t needs to clarified with ortho - per d/c orders, she is to fu with Dr. Medeiros - the patient reports she was supposed to see Dr. Mathur within 2 weeks as she stresses that it is important to fu her wound timelycont inue prn tylenol and norco for pain control Retention of urine 86531 4002 R33.9 [id number] walter catheter remains - details are unclear related to a voiding trial while inpatient. need documentat ion of urine testing / culture resultswil l likely plan for voiding trial within the next several days once mobility improvesma y need to add flomax or bethanecho l if recurrent retention Essential hypertension 15560284 I10 54696 continue metoprolol trend pressures and adjust meds accordingl y Hyperlipidemia 16749432 E78.5 93518879 presumed stable - continue statin therapy Acquired hypothyroidism 768806601 E03.9 22394 presumed stable - continu usual outpatient synthroid dose Pruritic rash 97161093 L 28.2 703713 the patient has had for the last few days - she believes it is related to hospital bedding / detergentf or now, it seems to be localized to her low back areawill treat with topical steroids and oral antihistam ineswould consider drug rash if persistent /progressi ve with alternate antibiotic therapy - would avoid oral steroids at this time due to fracture/s urgery and concerns for infection Open wound 314091711 T14 .8XXA 37018 overlying right ankle fracture - s/p I&D during surgical repair of her fractureco ntinue oral antibiotic s per hospital discharge ordersunab le to visualize this wound due to RLE casting - ortho to follow within 2 weeks Urinary tr act infectious disease 86019598 N39.0 745698 unclear of true diagnosis as there is a lack of documentat ion related to thiswill continue augmentin for now - need inpatient records to further review Physical deconditioning 1347471890 9102 R53.81 401418 related to advanced age, recent fall with right ankle fractureth erapies will be initiated - she will return home with her upon d/c from SNF Gastroesop hageal reflux disease without esophagitis 536115432 K21.9 548350 stable - continue PPI therapyof note, adding pepcid temporaril y not for GERD symptoms but for histamine blocking benefit related to rash Primary insomnia 4020291 F51.01 74954 continue outpatient dose of trazodone Drug-induc ed constipation 33731429 K59.03 8840 continue miralax and senna sadditiona l meds available per standing orders [id number] Sharri Rebolledo, [facility] [address] [place] [address] 07/22/2024 09:48:25 07/28/2024 09:44:12 Closed fracture of ankle 92749170 S82.891D [id number] s/p surgical repair per Dr. Mathur.Co ntinue NWB status.Con tinue PRN Tylenol and [place] for pain control.Co ntinues on baby ASA alone for DVT ppx.F/U with Dr. Burger on 07/29 for wound check. Retention of urine 03419 4002 R33.9 [id number] Walter catheter remains. Details are unclear related to a voiding trial while inpatient. Reviewed all documentat ion we have from hospital, does not appear urine studies were done?Plan for voiding trial on 07/26 -- initially ordered for 07/23 but pt wanted to defer until weekend was over.May need to add flomax or bethanecho l if recurrent retention. Essential hypertension 20728143 I10 69158 Stable. Continue Metoprolol .Continue to trend blood pressures, monitor lytes and renal function, and adjust meds as clinically indicated. Hyperlipidemia 36571253 E78.5 59488262 Presumed stable. Continue statin. Acquired hypothyroidism 427098116 E03.9 35059 Presumed stable. Continue usual outpatient Synthroid dose. Pruritic rash 22099714 L 28.2 230589 Patient has had since hospital - she believes it is related to hospital bedding/de tergent as it is localized to her lower back alone.Cont inue TMC cream, Pepcid, and Cetirizine through 07/28.Rash appears resolved at this point. Open wound 132060099 T14 .8XXA 65922 Overlying right ankle fracture s/p I&D during surgical repair of her fracture.C ontinue Doxycyclin e & Augmentin through 07/27.Unabl e to visualize this wound due to RLE casting.F/ U with ortho as above as they will remove cast and assess wound status. Urinary tr act infectious disease 18677033 N39.0 490781 Unclear of true diagnosis as there is a lack of documentat ion related to this. It does not appear urine studies were done while inpatient? Gastroesop hageal reflux disease without esophagitis 616738372 K21.9 280935 Stable. Continue PPI therapy.Te mporarily on Pepcid as above. Primary insomnia 3620484 F51.01 04731 Stable. Continue outpatient dose of Trazodone. Drug-induc ed constipation 28111472 K59.03 8840 Stable. Continue Miralax and Senna S.Addition al meds available per standing orders. Physical deconditioning 3866067954 9102 R53.81 391330 Related to advanced age, recent fall with right ankle fracture.T herapies will be initiated - she will return home with her upon d/c from [facility]. [id number] Sharri Rebolledo, [place] [address] [address] [place] [address] 07/26/2024 10:30:41 07/28/2024 09:45:00 Closed fracture of ankle 66144213 S82.891D [id number] s/p surgical repair per Dr. Burger.Co ntinue NWB status.Con tinue PRN Tylenol and [place] for pain control.Co ntinues on baby ASA alone. Nursing to contact Dr. Burger and clarify whether pt wants stronger OAC for DVT ppx while NWB.F/U with Dr. Burger on 07/29 for wound check. Open wound 419138775 T14 .8XXA 12060 Overlying right ankle fracture s/p I&D during surgical repair of her fracture.C ontinue Doxycyclin e & Augmentin through 07/27.Unabl e to visualize this wound due to RLE casting.F/ U with ortho as above as they will remove cast and assess wound status. Retention of urine 10695 4002 R33.9 22566 Walter catheter remains. Details are unclear related to a voiding trial while inpatient. Reviewed all documentat ion we have from hospital, does not appear urine studies were done?Plann ed for voiding trial on 07/26 but pt deferred until today. Discussed today as pt initially does not want catheter removed but agreeable after conversati on.Checkin g UA.May need to add flomax or bethanecho l if recurrent retention. Pruritic rash 09261352 L 28.2 193333 Patient had since hospital - she believed it was related to hospital bedding/de tergent as it is localized to her lower back alone.Cont inue TMC cream, Pepcid, and Cetirizine through 07/28.Rash appears resolved at this point. Essential hypertension 55027390 I10 22582 Stable. Continue Metoprolol .Continue to trend blood pressures, monitor lytes and renal function, and adjust meds as clinically indicated. Acquired hypothyroidism 238335070 E03.9 23971 Presumed stable. Continue usual outpatient Synthroid dose. Hyperlipidemia 75127888 E78.5 35935279 Presumed stable. Continue statin. Primary insomnia 3422115 F51.01 06304 Stable. Continue outpatient dose of Trazodone. Gastroesop hageal reflux disease without esophagitis 128701550 K21.9 654339 Stable. Continue PPI therapy.Te mporarily on Pepcid as above. Drug-induc ed constipation 54989172 K59.03 8840 Stable. Continue Miralax and Senna S.Addition al meds available per standing orders. Urinary tr act infectious disease 13851767 N39.0 657066 Unclear of true diagnosis as there is a lack of documentat ion related to this. It does not appear urine studies were done while inpatient? Checking UA as above. Physical deconditioning 5162751210 9102 R53.81 239264 Related to advanced age, recent fall with right ankle fracture.T herapies will be initiated - she will return home with her upon d/c from [facility]. [id number] Sharri Rebolledo, DO [address] [address] 07/28/2024 09:55:37 07/30/2024 23:04:48 Closed fracture of ankle 28883821 S82.891D [id number] s/p surgical repair per Dr. Burger.Co ntinue NWB status.Con tinue PRN Tylenol and [place] for pain control.Co ntinues on baby ASA alone. Nursing contacted Dr. Burger's office and confirmed does not desire stronger OAC for DVT ppx while NWB.F/U with Dr. Burger on 07/29 for wound check. Open wound 120657783 T14 .8XXA 78950 Overlying right ankle fracture s/p I&D during surgical repair of her fracture.C ompleted Doxycyclin e & Augmentin on 07/27.Unabl e to visualize this wound due to RLE casting.F/ U with ortho as above as they will remove cast and assess wound status. Retention of urine 66674 4002 R33.9 53987 Walter catheter remained in place at hospital discharge. Details are unclear related to a voiding trial while inpatient. Reviewed all documentat ion we have from hospital, does not appear urine studies were done.Urine cx from 07/26 is pending, performed in response to hematuria (likely from catheter trauma rather than UTI).Walter catheter removed on 07/26, pt has been voiding since without concerns.M ay need to add flomax or bethanecho l if recurrent retention. Pruritic rash 20820509 L 28.2 214308 Patient had since hospital - she believed it was related to hospital bedding/de tergent as it is localized to her lower back alone.Comp letes course of TMC cream, Pepcid, and Cetirizine today.Rash appears resolved at this point. Essential hypertension 23648936 I10 65609 Stable. Continue Metoprolol .Continue to trend blood pressures, monitor lytes and renal function, and adjust meds as clinically indicated. Acquired hypothyroidism 852925116 E03.9 79599 Presumed stable. Continue usual outpatient Synthroid dose. Hyperlipidemia 53343943 E78.5 18793346 Presumed stable. Continue statin. Primary insomnia 5576305 F51.01 21139 Stable. Continue outpatient dose of Trazodone. Gastroesop hageal reflux disease without esophagitis 778809397 K21.9 179620 Stable. Continue PPI therapy.Te mporarily on Pepcid as above, completes today. Drug-induc ed constipation 76792090 K59.03 8840 Stable. Continue Miralax and Senna S.Addition al meds available per standing orders. Urinary tr act infectious disease 65979430 N39.0 521356 Unclear of true diagnosis as there is a lack of documentat ion related to this. It does not appear urine studies were done while inpatient? Checking UA as above. Physical deconditioning 2498296839 9102 R53.81 069287 Related to advanced age, recent fall with right ankle fracture.T herapies will be initiated - she will return home with her upon d/c from SNF. Body mass index 40+ - severely obese 666193265 E66.[address] to follow. [id number] Sharri Rebolledo, DO [address] [address] 08/03/2024 09:56:20 08/11/2024 10:18:43 Candidiasis 02074644 B37.9 343107 Asymptomat ic. Treat with Diflucan x 2 doses 72 hours apart. Closed fra cture of ankle 52216500 S82.891D [id number] s/p surgical repair per Dr. Burger.Co ntinue NWB status. Now in walking boot to RLE.Contin ue PRN Tylenol and [place] for pain control.Co ntinues on baby ASA alone. Ortho did not desire strong DVT ppx.F/U with Dr. Burger last on 07/29. Will f/u again in 6 weeks. Open wound 500084536 T14 .8XXA 19168 Overlying right ankle fracture s/p I&D during surgical repair of her fracture.C ompleted Doxycyclin e & Augmentin on 07/27.F/U with ortho as above. Retention of urine 00064 4002 R33.9 14970 Walter catheter remained in place at hospital discharge. Details are unclear related to a voiding trial while inpatient. Reviewed all documentat ion we have from hospital, does not appear urine studies were done.Urine cx from 07/26 grew yeast, but otherwise no growth.Fol ey catheter removed on 07/26, pt has been voiding since without concerns.M ay need to add Flomax or Bethanecho l if recurrent retention. Urinary tr act infectious disease 45438426 N39.0 790346 Unclear of true diagnosis as there is a lack of documentat ion related to this. It does not appear urine studies were done while inpatient. SEE ABOVE... Essential hypertension 19486545 I10 84388 Stable. Continue Metoprolol .Continue to trend blood pressures, monitor lytes and renal function, and adjust meds as clinically indicated. Acquired hypothyroidism 186572259 E03.9 19483 Presumed stable. Continue usual outpatient Synthroid dose. Hyperlipidemia 42404002 E78.5 62807331 Presumed stable. Continue statin. Primary insomnia 1505332 F51.01 66850 Stable. Continue outpatient dose of Trazodone. Gastroesop hageal reflux disease without esophagitis 301535558 K21.9 587673 Stable. Continue PPI therapy. Body mass index 40+ - severely obese 449140238 E66.[address] to follow. Drug-induc ed constipation 47290287 K59.03 8840 Stable. Continue Miralax and Senna S.Addition al meds available per standing orders. Pruritic rash 12967785 L 28.2 135679 Patient had rash in hospital, resolved here with TMC cream, Pepcid, and Cetirizine . She believed it was related to hospital bedding/de tergent as it was localized to her lower back alone. Physical deconditioning 7622639680 9102 R53.81 644666 Related to advanced age, recent fall with right ankle fracture.T herapies will be initiated - she will return home with her upon d/c from [facility]. [id number] Sharri Rebolledo, DO [address] [place] [address] 08/05/2024 11:20:36 08/11/2024 10:19:32 Candidiasis 81845290 B37.9 790398 Asymptomat ic. Treating with Diflucan x 2 doses 72 hours apart, completes 08/07. Closed fra cture of ankle 45703062 S82.891D [id number] s/p surgical repair per Dr. Burger.No w in walking boot to RLE. Continue NWB status.Con tinue PRN Tylenol and Lancaster for pain control.Co ntinues on baby ASA alone. Ortho did not desire stronger DVT ppx.F/U with Dr. Burger last on 07/29. Will f/u again in 6 weeks. Open wound [id number] T14 .8XXA 00724 Overlying right ankle fracture s/p I&D during surgical repair of her fracture.C ompleted Doxycyclin e & Augmentin on 07/27.F/U with ortho as above. Retention of urine 07584 4002 R33.9 18482 Walter catheter remained in place at hospital discharge. Details are unclear related to a voiding trial while inpatient. Reviewed all documentat ion we have from hospital, does not appear urine studies were done.Urine cx from 07/26 grew yeast, but otherwise no growth.Fol ey catheter removed on 07/26, pt has been voiding since without concerns.M ay need to add Flomax or Bethanecho l if recurrent retention. Urinary tr act infectious disease 13680955 N39.0 291547 Unclear of true diagnosis as there is a lack of documentat ion related to this. It does not appear urine studies were done while inpatient. SEE ABOVE... Essential hypertension 86502899 I10 29850 Stable. Continue Metoprolol .Continue to trend blood pressures, monitor lytes and renal function, and adjust meds as clinically indicated. Acquired hypothyroidism 228930042 E03.9 16555 Presumed stable. Continue usual outpatient Synthroid dose. Hyperlipidemia 55796207 E78.5 02976717 Presumed stable. Continue statin. Primary insomnia 9242021 F51.01 53593 Stable. Continue outpatient dose of Trazodone. Gastroesop hageal reflux disease without esophagitis 325103286 K21.9 742877 Stable. Continue PPI therapy. Body mass index 40+ - severely obese 452881809 E66.[address] to follow. Drug-induc ed constipation 23425264 K59.03 8840 Stable. Continue Miralax and Senna S.Addition al meds available per standing orders. Pruritic rash 55104696 L 28.2 436470 Patient had rash in hospital, resolved here with TMC cream, Pepcid, and Cetirizine . She believed it was related to hospital bedding/de tergent as it was localized to her lower back alone. Physical deconditioning [id number] 9102 R53.81 481820 Related to advanced age, recent fall with right ankle fracture.T herapies will be initiated - she will return home with her upon d/c from [facility]. [id number] Sharri Rebolledo, DO [address] [address] 08/09/2024 10:58:06 08/11/2024 10:20:51 Closed fracture of ankle 30229802 S82.891D [id number] s/p surgical repair per Dr. Burger.No w in walking boot to RLE. Continue NWB status.Con tinue PRN Tylenol and Lancaster for pain control.Co ntinues on baby ASA alone. Ortho did not desire stronger DVT ppx.F/U with Dr. Burger last on 07/29. Will f/u again in 6 weeks. Open wound 172324305 T14 .8XXA 91569 Overlying right ankle fracture s/p I&D during surgical repair of her fracture.C ompleted Doxycyclin e & Augmentin on 07/27.F/U with ortho as above. Candidiasis 27015123 B37 .9 779117 Asymptomat ic. Seen on 08/07 urine culture. Treated with Diflucan x 2 doses 72 hours apart, completed 08/07. Retention of urine 20903 4002 R33.9 64595 Walter catheter remained in place at hospital discharge. Details are unclear related to a voiding trial while inpatient. Reviewed all documentat ion we have from hospital, does not appear urine studies were done.Urine cx from 07/26 grew yeast, but otherwise no growth. Treated with Diflucan.F oley catheter removed on 07/26, pt has been voiding since without concerns. Urinary tr act infectious disease 68050511 N39.0 819466 Unclear of true diagnosis as there is a lack of documentat ion related to this. It does not appear urine studies were done while inpatient. SEE ABOVE... Essential hypertension 68674104 I10 22039 Stable. Continue Metoprolol .Continue to trend blood pressures, monitor lytes and renal function, and adjust meds as clinically indicated. Acquired hypothyroidism 239351480 E03.9 80101 Presumed stable. Continue usual outpatient Synthroid dose. Hyperlipidemia 05302195 E78.5 26490626 Presumed stable. Continue statin. Primary insomnia 0050486 F51.01 27372 Stable. Continue outpatient dose of Trazodone. Gastroesop hageal reflux disease without esophagitis 132827062 K21.9 470775 Stable. Continue PPI therapy. Body mass index 40+ - severely obese 274941939 E66.[address] to follow. Drug-induc ed constipation 92663257 K59.03 8840 Stable. Continue Miralax and Senna S.Addition al meds available per standing orders. Pruritic rash 12057327 L 28.2 929354 Patient had rash in hospital, resolved here with TMC cream, Pepcid, and Cetirizine . She believed it was related to hospital bedding/de tergent as it was localized to her lower back alone. Physical deconditioning 3240222331 9102 R53.81 551500 Related to advanced age, recent fall with right ankle fracture.T herapies will be initiated - she will return home with her upon d/c from [facility]. [id number] Sharri Rebolledo, [address] [id number] 08/12/2024 11:15:44 08/18/2024 20:21:32 Closed fracture of ankle 81299956 S82.891D [id number] s/p surgical repair per Dr. Burger.No w in walking boot to RLE. Continue NWB status.Con tinue PRN Tylenol and Lancaster for pain control.Co ntinues on baby ASA alone. Ortho did not desire stronger DVT ppx.F/U with Dr. Burger last on 07/29. Will f/u again in 6 weeks. Open wound 463385501 T14 .8XXA 20220 Overlying right ankle fracture s/p I&D during surgical repair of her fracture.C ompleted Doxycyclin e & Augmentin on 07/27.F/U with ortho as above. Essential hypertension 27256820 I10 11915 Stable. Continue Metoprolol .Continue to trend blood pressures, monitor lytes and renal function, and adjust meds as clinically indicated. Acquired hypothyroidism 571800406 E03.9 86527 Presumed stable. Continue usual outpatient Synthroid dose. Hyperlipidemia 81663387 E78.5 04437136 Presumed stable. Continue statin. Primary insomnia 1419271 F51.01 98472 Stable. Continue outpatient dose of Trazodone. Gastroesop hageal reflux disease without esophagitis 839243543 K21.9 157086 Stable. Continue PPI therapy. Drug-induc ed constipation 41878410 K59.03 8840 Stable. Continue Miralax and Senna S.Addition al meds available per standing orders. Body mass index 40+ - severely obese 418241141 E66.[address] to follow. Pruritic rash 75904255 L 28.2 051105 Patient had rash in hospital, resolved here with TMC cream, Pepcid, and Cetirizine . She believed it was related to hospital bedding/de tergent as it was localized to her lower back alone. Retention of urine 62933 4002 R33.9 96388 Walter catheter remained in place at hospital discharge. Details are unclear related to a voiding trial while inpatient. Reviewed all documentat ion we have from hospital, does not appear urine studies were done.Urine cx from 07/26 grew yeast, but otherwise no growth. Treated with Diflucan.F oley catheter removed on 07/26, pt has been voiding since without concerns. Urinary tr act infectious disease 08560506 N39.0 150400 Unclear of true diagnosis as there is a lack of documentat ion related to this. It does not appear urine studies were done while inpatient. SEE ABOVE... Candidiasis 32171581 B37 .9 948081 Asymptomat ic. Seen on 08/07 urine culture. Treated with Diflucan x 2 doses 72 hours apart, completed 08/07. Physical deconditioning 9166872630 9102 R53.81 390778 Related to advanced age, recent fall with right ankle fracture.T herapies will be initiated - she will return home with her upon d/c from [facility]. [id number] Sharri Orestessanthosh, DO [address] [address] 08/18/2024 13:07:42 08/27/2024 22:23:00 Closed fracture of ankle 08806318 S82.891D [id number] s/p surgical repair per Dr. Burger.No w in walking boot to RLE. Continue NWB status.Con tinue PRN Tylenol and Lancaster for pain control.Co ntinues on baby ASA alone. Ortho did not desire stronger DVT ppx.F/U with Dr. Burger last on 07/29. Will f/u next on 09/09.F/U with podiatry today. Open wound 438942447 T14 .8XXA 08986 Overlying right ankle fracture s/p I&D during surgical repair of her fracture.C ompleted Doxycyclin e & Augmentin on 07/27.F/U with ortho as above. Essential hypertension 83074356 I10 76909 Stable. Continue Metoprolol .Continue to trend blood pressures, monitor lytes and renal function, and adjust meds as clinically indicated. Hyperlipidemia 71723596 E78.5 38855629 Presumed stable. Continue statin. Acquired hypothyroidism 882073894 E03.9 75282 Presumed stable. Continue usual outpatient Synthroid dose. Gastroesop hageal reflux disease without esophagitis 182811927 K21.9 084313 Stable. Continue PPI therapy. Primary insomnia 1036811 F51.01 48965 Stable. Continue outpatient dose of Trazodone. Drug-induc ed constipation 53435329 K59.03 8840 Stable. Continue Miralax and Senna S.Addition al meds available per standing orders. Body mass index 40+ - severely obese 780470413 E66.[address] to follow. Pruritic rash 70842692 L 28.2 961409 Patient had rash in hospital, resolved here with TMC cream, Pepcid, and Cetirizine . She believed it was related to hospital bedding/de tergent as it was localized to her lower back alone. Retention of urine 43317 4002 R33.9 08130 Walter catheter remained in place at hospital discharge. Details are unclear related to a voiding trial while inpatient. Reviewed all documentat ion we have from hospital, does not appear urine studies were done.Urine cx from 07/26 grew yeast, but otherwise no growth. Treated with Diflucan.F oley catheter removed on 07/26, pt has been voiding since without concerns. Urinary tr act infectious disease 43739382 N39.0 650599 Unclear of true diagnosis as there is a lack of documentat ion related to this. It does not appear urine studies were done while inpatient. SEE ABOVE... Candidiasis 50096637 B37 .9 592068 Asymptomat ic. Seen on 08/07 urine culture. Treated with Diflucan x 2 doses 72 hours apart, completed 08/07. Health Concerns Section Related Observation LastModified by Organization Detai ls LastModified Time None Recorded Concern Status LastModified by Organization Details LastModified Time None Recorded Advance Directives Directive None Recorded Payers Insurance Date Sequence Insurance Name Policy Number Policy Hernandez Covered Member ID Hernandez Member ID Guarantor Name 08/27/2024 1 [facility] (MEDICARE REPLACEMENT HMO) [id number] Jackeline Connolly [id number] Jackeline Connolly Notes Date Note Type Note Provider Name and Address Organization Details Recorded Time 08/03/2024 text/html F/U fall with bimalleolar right ankle fracture s/p ORIF, I&D of wound with closure, post-operative urinary retention, nubia of urine, and chronic medical conditions.--- patient lives in a home with her , is IND at baseline. Pain control is acceptable at this time. She requests something for itching as she has developed a rash to her low back over the last couple of days which she thinks is related to the bedding at the hospital. The rash has not spread since onset and she denies any systemic symptoms related to this. She has no history of antibiotic allergies.--- CleveNanmaia is seated in her w/c in her room, doing well, reports her pain to her RLE is well-managed. She reports the rash to her back has nearly resolved and is no longer itching. Examination reveals rash is not visualized any longer. She continues on Zyrtec, Pepcid, and TMC cream. She expresses concern that her f/u appt with Dr. Burger was arranged for 08/05, however she was told to f/u in 2 weeks so that her wound under her cast can be examined, since we will not be able to monitor it without removing her cast. JENNIFER Richards contacts Dr. Burger to mention this and appt has been moved up to 07/29. She continues on Doxycycline & Augmentin through 07/27. VSS. Staff is without concerns today. Per therapy notes = Pt SBA bed mobility from supine to EOB, pt demoed good sitting balance. Pt min A for STS from EOB to stand and stand pivot transfer to w/c. Pt min A toilet transfer with cueing for proper technique.---Jackeline is resting in her w/c in her room, without concerns and reports her pain is well-controlled. She reports the rash/itching to her back has entirely resolved and examination confirms this. She completes Doxycycline & Augmentin on 07/27 and will f/u with Dr. Burger on 07/29. We discuss plan to remove her walter catheter today. She is hesitant to have this done as she fears she will not be able to get to the restroom in time. I reassure her that this trial is necessary, we discuss the risk of leaving a catheter in place when it is not necessary, and that staff here will assist her to avoid episodes of incontinence. Staff also noted that she developed temporary hematuria following a therapy session but does not recall if her catheter was tugged on or not. This has since resolved and urine is clear and yellow in bag at present. VSS. Staff is without concerns today. Per therapy notes = facilitated functional transfer with sit to stand lift from shower chair to WC with pt maintaining NWB status in R LE well but pt requirng cues for safety to maitnain UE support on handles. facilitated seated cubii bike with L LE only for activity tolerance training for 5 min L1 with occasional AAROM required for full revoultions. Pt reports, this is tiring.'---07/28/24 Jackeline is seated in her w/c, doing well today, without pain or concerns to report today. She has questions about her f/u appt with Dr. Burger tomorrow. I contact DON to follow up with her on this. Nursing did reach out to Dr. Burger regarding DVT prophylaxis. Their office wants to leave ASA at daily dosing and will re-evaluate tomorrow. Walter catheter removed on 07/26 and she has been voiding since without concerns. VSS. Staff is without concerns today. Per therapy notes = Patient performed sit to stand transfers to pull up from parallel bars - moderate assist. Patient performed stand pivot transfers with a FWW requiring moderate assist with cueing for safety with pivots with NWB status on R LE. Rest breaks taken as needed due to fatigue---08/03/24N shanthi is doing well today, seated in her w/c, without concerns and reports her pain is well-controlled. She is happy to have been graduated to a walking boot at her F/U appt on 07/29. She does remain NWB to this extremity. She will f/u again in 6 weeks. VSS. Staff is without concerns today. Per therapy notes = practiced sit/stand to FWW from wc Min to CGA; pt encouraged to use FWW and pvt transfer vs use sit/stand lift. pt is able to maintain NWB status throughout. Selma Stevens, [place] [address] [place], [phone], [facility] [place] [facility] 08/04/2024 16:00:10 08/05/2024 text/html F/U fall with bimalleolar right ankle fracture s/p ORIF, I&D of wound with closure, post-operative urinary retention, nubia of urine, and chronic medical conditions.---e patient lives in a home with her , is IND at baseline. Pain control is acceptable at this time. She requests something for itching as she has developed a rash to her low back over the last couple of days which she thinks is related to the bedding at the hospital. The rash has not spread since onset and she denies any systemic symptoms related to this. She has no history of antibiotic allergies.--- Jackeline is seated in her w/c in her room, doing well, reports her pain to her RLE is well-managed. She reports the rash to her back has nearly resolved and is no longer itching. Examination reveals rash is not visualized any longer. She continues on Zyrtec, Pepcid, and TMC cream. She expresses concern that her f/u appt with Dr. Burger was arranged for 08/05, however she was told to f/u in 2 weeks so that her wound under her cast can be examined, since we will not be able to monitor it without removing her cast. JENNIFER Richards contacts Dr. Burger to mention this and appt has been moved up to 07/29. She continues on Doxycycline & Augmentin through 07/27. VSS. Staff is without concerns today. Per therapy notes = Pt SBA bed mobility from supine to EOB, pt demoed good sitting balance. Pt min A for STS from EOB to stand and stand pivot transfer to w/c. Pt min A toilet transfer with cueing for proper technique.---Jackeline is resting in her w/c in her room, without concerns and reports her pain is well-controlled. She reports the rash/itching to her back has entirely resolved and examination confirms this. She completes Doxycycline & Augmentin on 07/27 and will f/u with Dr. Burger on 07/29. We discuss plan to remove her walter catheter today. She is hesitant to have this done as she fears she will not be able to get to the restroom in time. I reassure her that this trial is necessary, we discuss the risk of leaving a catheter in place when it is not necessary, and that staff here will assist her to avoid episodes of incontinence. Staff also noted that she developed temporary hematuria following a therapy session but does not recall if her catheter was tugged on or not. This has since resolved and urine is clear and yellow in bag at present. VSS. Staff is without concerns today. Per therapy notes = facilitated functional transfer with sit to stand lift from shower chair to WC with pt maintaining NWB status in R LE well but pt requirng cues for safety to maitnain UE support on handles. facilitated seated cubii bike with L LE only for activity tolerance training for 5 min L1 with occasional AAROM required for full revoultions. Pt reports, this is tiring.'---07/28/24 Jackeline is seated in her w/c, doing well today, without pain or concerns to report today. She has questions about her f/u appt with Dr. Burger tomorrow. I contact DON to follow up with her on this. Nursing did reach out to Dr. Burger regarding DVT prophylaxis. Their office wants to leave ASA at daily dosing and will re-evaluate tomorrow. Walter catheter removed on 07/26 and she has been voiding since without concerns. VSS. Staff is without concerns today. Per therapy notes = Patient performed sit to stand transfers to pull up from parallel bars - moderate assist. Patient performed stand pivot transfers with a FWW requiring moderate assist with cueing for safety with pivots with NWB status on R LE. Rest breaks taken as needed due to fatigue---08/03/24N shanthi is doing well today, seated in her w/c, without concerns and reports her pain is well-controlled. She is happy to have been graduated to a walking boot at her F/U appt on 07/29. She does remain NWB to this extremity. She will f/u again in 6 weeks. VSS. Staff is without concerns today. Per therapy notes = practiced sit/stand to FWW from wc Min to CGA; pt encouraged to use FWW and pvt transfer vs use sit/stand lift. pt is able to maintain NWB status throughout.---08/05Jackeline is seated in her w/c in her room, without concerns or reports of pain. She feels she is making good progress with therapy and is happy that her insurance extended her another week so she can continue to work on independent toileting among other things. VSS. Staff is without concerns at the moment. Per therapy notes = Pt AK bed mobility with use of bed cane from supine to EOB. Pt demoed good sitting balance while EOB. Pt Min A STS from EOB to 2ww, min/CGA SPT to w/c. Pt min/CGA for toilet transfer with cues for safe technique, max A clothing management, max hygiene with encouragement for pt to attempt. Pt ARAMBULA UB dressing including donning bra, mod A pull up and donning pants with field technical support consultant use and education on proper use. Pt max A donning sock this date. Pt ARAMBULA groom/hygiene while seated in w/c at sink. Selma Stevens, PROGRAM [employer]ODUCTION SPECIALIST [address] [place], [phone], [facility] [place] [facility] 08/05/2024 13:36:09 08/09/2024 text/html F/U fall with bimalleolar right ankle fracture s/p ORIF, I&D of wound with closure, post-operative urinary retention, nubia of urine, and chronic medical conditions.---e patient lives in a home with her , is IND at baseline. Pain control is acceptable at this time. She requests something for itching as she has developed a rash to her low back over the last couple of days which she thinks is related to the bedding at the hospital. The rash has not spread since onset and she denies any systemic symptoms related to this. She has no history of antibiotic allergies.--- 5Nanmaia is seated in her w/c in her room, doing well, reports her pain to her RLE is well-managed. She reports the rash to her back has nearly resolved and is no longer itching. Examination reveals rash is not visualized any longer. She continues on Zyrtec, Pepcid, and TMC cream. She expresses concern that her f/u appt with Dr. Burger was arranged for 08/05, however she was told to f/u in 2 weeks so that her wound under her cast can be examined, since we will not be able to monitor it without removing her cast. JENNIFER Richards contacts Dr. Burger to mention this and appt has been moved up to 07/29. She continues on Doxycycline & Augmentin through 07/27. VSS. Staff is without concerns today. Per therapy notes = Pt SBA bed mobility from supine to EOB, pt demoed good sitting balance. Pt min A for STS from EOB to stand and stand pivot transfer to w/c. Pt min A toilet transfer with cueing for proper technique.---Nanmaia is resting in her w/c in her room, without concerns and reports her pain is well-controlled. She reports the rash/itching to her back has entirely resolved and examination confirms this. She completes Doxycycline & Augmentin on 07/27 and will f/u with Dr. Burger on 07/29. We discuss plan to remove her walter catheter today. She is hesitant to have this done as she fears she will not be able to get to the restroom in time. I reassure her that this trial is necessary, we discuss the risk of leaving a catheter in place when it is not necessary, and that staff here will assist her to avoid episodes of incontinence. Staff also noted that she developed temporary hematuria following a therapy session but does not recall if her catheter was tugged on or not. This has since resolved and urine is clear and yellow in bag at present. VSS. Staff is without concerns today. Per therapy notes = facilitated functional transfer with sit to stand lift from shower chair to WC with pt maintaining NWB status in R LE well but pt requirng cues for safety to maitnain UE support on handles. facilitated seated cubii bike with L LE only for activity tolerance training for 5 min L1 with occasional AAROM required for full revoultions. Pt reports, this is tiring.'---07/28/24 Jackeline is seated in her w/c, doing well today, without pain or concerns to report today. She has questions about her f/u appt with Dr. Burger tomorrow. I contact DON to follow up with her on this. Nursing did reach out to Dr. Burger regarding DVT prophylaxis. Their office wants to leave ASA at daily dosing and will re-evaluate tomorrow. Walter catheter removed on 07/26 and she has been voiding since without concerns. VSS. Staff is without concerns today. Per therapy notes = Patient performed sit to stand transfers to pull up from parallel bars - moderate assist. Patient performed stand pivot transfers with a FWW requiring moderate assist with cueing for safety with pivots with NWB status on R LE. Rest breaks taken as needed due to fatigue---08/03/24N shanthi is doing well today, seated in her w/c, without concerns and reports her pain is well-controlled. She is happy to have been graduated to a walking boot at her F/U appt on 07/29. She does remain NWB to this extremity. She will f/u again in 6 weeks. VSS. Staff is without concerns today. Per therapy notes = practiced sit/stand to FWW from wc Min to CGA; pt encouraged to use FWW and pvt transfer vs use sit/stand lift. pt is able to maintain NWB status throughout.---08/05Nancy is seated in her w/c in her room, without concerns or reports of pain. She feels she is making good progress with therapy and is happy that her insurance extended her another week so she can continue to work on independent toileting among other things. VSS. Staff is without concerns at the moment. Per therapy notes = Pt AK bed mobility with use of bed cane from supine to EOB. Pt demoed good sitting balance while EOB. Pt Min A STS from EOB to 2ww, min/CGA SPT to w/c. Pt min/CGA for toilet transfer with cues for safe technique, max A clothing management, max hygiene with encouragement for pt to attempt. Pt ARAMBULA UB dressing including donning bra, mod A pull up and donning pants with field technical support consultant use and education on proper use. Pt max A donning sock this date. Pt ARAMBULA groom/hygiene while seated in w/c at sink.---08/09/24Nanc y is seated in her w/c in her room, reports she had a good weekend, is without concerns at the moment and reports her pain is well-managed. She does report that she wants to change her code status from Full to DNR as she has had time to think about it and does not want life-prolonging measures. Have notified nursing, who will give her a new POLST to fill-out. VSS. Staff is without concerns otherwise. Per therapy notes = Patient performed STS transfers at parallel bars requiring Joe. Standing dynamic balance - balloon taps, rings reach and stack (to improve weight shifting, midline crossing and reaching outside of JASS). NWB maintained well on R LE. Rest breaks taken as needed due to fatigue. Selma Stevens, CAILIN [address] [facility], [place], [address], [facility] [place] [facility] 08/09/2024 18:02:32 08/12/2024 text/html F/U fall with bimalleolar right ankle fracture s/p ORIF, I&D of wound with closure, post-operative urinary retention, nubia of urine, and chronic medical conditions.---e patient lives in a home with her , is IND at baseline. Pain control is acceptable at this time. She requests something for itching as she has developed a rash to her low back over the last couple of days which she thinks is related to the bedding at the hospital. The rash has not spread since onset and she denies any systemic symptoms related to this. She has no history of antibiotic allergies.--- 5Nanmaia is seated in her w/c in her room, doing well, reports her pain to her RLE is well-managed. She reports the rash to her back has nearly resolved and is no longer itching. Examination reveals rash is not visualized any longer. She continues on Zyrtec, Pepcid, and TMC cream. She expresses concern that her f/u appt with Dr. Burger was arranged for 08/05, however she was told to f/u in 2 weeks so that her wound under her cast can be examined, since we will not be able to monitor it without removing her cast. JENNIFER Richards contacts Dr. Burger to mention this and appt has been moved up to 07/29. She continues on Doxycycline & Augmentin through 07/27. VSS. Staff is without concerns today. Per therapy notes = Pt SBA bed mobility from supine to EOB, pt demoed good sitting balance. Pt min A for STS from EOB to stand and stand pivot transfer to w/c. Pt min A toilet transfer with cueing for proper technique.---Nanmaia is resting in her w/c in her room, without concerns and reports her pain is well-controlled. She reports the rash/itching to her back has entirely resolved and examination confirms this. She completes Doxycycline & Augmentin on 07/27 and will f/u with Dr. Burger on 07/29. We discuss plan to remove her walter catheter today. She is hesitant to have this done as she fears she will not be able to get to the restroom in time. I reassure her that this trial is necessary, we discuss the risk of leaving a catheter in place when it is not necessary, and that staff here will assist her to avoid episodes of incontinence. Staff also noted that she developed temporary hematuria following a therapy session but does not recall if her catheter was tugged on or not. This has since resolved and urine is clear and yellow in bag at present. VSS. Staff is without concerns today. Per therapy notes = facilitated functional transfer with sit to stand lift from shower chair to WC with pt maintaining NWB status in R LE well but pt requirng cues for safety to maitnain UE support on handles. facilitated seated cubii bike with L LE only for activity tolerance training for 5 min L1 with occasional AAROM required for full revoultions. Pt reports, this is tiring.'---07/28/24 Jackeline is seated in her w/c, doing well today, without pain or concerns to report today. She has questions about her f/u appt with Dr. Burger tomorrow. I contact DON to follow up with her on this. Nursing did reach out to Dr. Burger regarding DVT prophylaxis. Their office wants to leave ASA at daily dosing and will re-evaluate tomorrow. Walter catheter removed on 07/26 and she has been voiding since without concerns. VSS. Staff is without concerns today. Per therapy notes = Patient performed sit to stand transfers to pull up from parallel bars - moderate assist. Patient performed stand pivot transfers with a FWW requiring moderate assist with cueing for safety with pivots with NWB status on R LE. Rest breaks taken as needed due to fatigue---08/03/24N shanthi is doing well today, seated in her w/c, without concerns and reports her pain is well-controlled. She is happy to have been graduated to a walking boot at her F/U appt on 07/29. She does remain NWB to this extremity. She will f/u again in 6 weeks. VSS. Staff is without concerns today. Per therapy notes = practiced sit/stand to FWW from wc Min to CGA; pt encouraged to use FWW and pvt transfer vs use sit/stand lift. pt is able to maintain NWB status throughout.---08/05Jackeline is seated in her w/c in her room, without concerns or reports of pain. She feels she is making good progress with therapy and is happy that her insurance extended her another week so she can continue to work on independent toileting among other things. VSS. Staff is without concerns at the moment. Per therapy notes = Pt AK bed mobility with use of bed cane from supine to EOB. Pt demoed good sitting balance while EOB. Pt Min A STS from EOB to 2ww, min/CGA SPT to w/c. Pt min/CGA for toilet transfer with cues for safe technique, max A clothing management, max hygiene with encouragement for pt to attempt. Pt ARAMBULA UB dressing including donning bra, mod A pull up and donning pants with field technical support consultant use and education on proper use. Pt max A donning sock this date. Pt ARAMBULA groom/hygiene while seated in w/c at sink.---08/09/24Nanc y is seated in her w/c in her room, reports she had a good weekend, is without concerns at the moment and reports her pain is well-managed. She does report that she wants to change her code status from Full to DNR as she has had time to think about it and does not want life-prolonging measures. Have notified nursing, who will give her a new POLST to fill-out. VSS. Staff is without concerns otherwise. Per therapy notes = Patient performed STS transfers at parallel bars requiring Joe. Standing dynamic balance - balloon taps, rings reach and stack (to improve weight shifting, midline crossing and reaching outside of JASS). NWB maintained well on R LE. Rest breaks taken as needed due to fatigue.---08/12/24N shanthi is seated in her w/c in her room, doing well today, without concerns overall. She notes some improvement in her LE edema as she has been better-elevating her limbs when at rest. VSS. Staff is without concerns at this time. Per therapy notes = Performed supine/sidelying exercises: SLR, SLA, clamshells, and ankle 4 way AROM with 20 reps. Performed transfer training to work on L LE strength, 10x sit to stands from eelvated plinth with eccentric control. Good compliance with weight bearing Selma Stevens, CAILIN [address] [facility], [place], [address], [facility] [place] [facility] 08/12/2024 19:53:29 08/18/2024 text/html 79 Y/O female admitted to [facility] for post acute rehab subsequent to an inpatient stay at [facility] 07/15-07/20/2024 related to a fall resulting in a bimalleolar right ankle fracture that was surgically repaired by Dr. Mike Mathur. The patient reports she was out with her when she attempted to get into the car and lost her balance as she stepped into the passenger's seat with her left leg. Her right leg buckled and she went down onto the right LE with her ankle going under the car and resulting in immediate pain. Her took her to an urgent care clinic where imaging was c/w a fracture. She was splinted and sent to [facility] for further orthopedic evaluation. She was admitted to the hospitalist service with orthopedic consultation, undergoing ORIF of the right ankle with fixation, I&D of wound with closure 07/16. Her post operative course was reported to nursing to have been complicated by urinary retention although the patient cannot remember staff actually removing the walter after her surgery or doing intermittent straight caths. She has been discharged on oral augmentin which the patient believes is due to a UTI and doxycycline for infection prophylaxis related to an associated wound she has to the right ankle. We do not have hospital documents available for review this evening aside from her discharge orders and an admission H&P. So, will have staff work on getting her hospital dc summary and urine culture results. New medications: miralax, senna s, augmentin x 7 days and doxycycline x 7 days, hydrocodone Code status is fullPOA / emergency contact is , Dilshad Clay---07/20/24T he patient lives in a home with her , is IND at baseline. Pain control is acceptable at this time. She requests something for itching as she has developed a rash to her low back over the last couple of days which she thinks is related to the bedding at the hospital. The rash has not spread since onset and she denies any systemic symptoms related to this. She has no history of antibiotic allergies.--- 5Nancy is seated in her w/c in her room, doing well, reports her pain to her RLE is well-managed. She reports the rash to her back has nearly resolved and is no longer itching. Examination reveals rash is not visualized any longer. She continues on Zyrtec, Pepcid, and TMC cream. She expresses concern that her f/u appt with Dr. Burger was arranged for 08/05, however she was told to f/u in 2 weeks so that her wound under her cast can be examined, since we will not be able to monitor it without removing her cast. JENNIFER Richards contacts Dr. Burger to mention this and appt has been moved up to 07/29. She continues on Doxycycline & Augmentin through 07/27. VSS. Staff is without concerns today. Per therapy notes = Pt SBA bed mobility from supine to EOB, pt demoed good sitting balance. Pt min A for STS from EOB to stand and stand pivot transfer to w/c. Pt min A toilet transfer with cueing for proper technique.---Jacekline is resting in her w/c in her room, without concerns and reports her pain is well-controlled. She reports the rash/itching to her back has entirely resolved and examination confirms this. She completes Doxycycline & Augmentin on 07/27 and will f/u with Dr. Burger on 07/29. We discuss plan to remove her walter catheter today. She is hesitant to have this done as she fears she will not be able to get to the restroom in time. I reassure her that this trial is necessary, we discuss the risk of leaving a catheter in place when it is not necessary, and that staff here will assist her to avoid episodes of incontinence. Staff also noted that she developed temporary hematuria following a therapy session but does not recall if her catheter was tugged on or not. This has since resolved and urine is clear and yellow in bag at present. VSS. Staff is without concerns today. Per therapy notes = facilitated functional transfer with sit to stand lift from shower chair to WC with pt maintaining NWB status in R LE well but pt requirng cues for safety to maitnain UE support on handles. facilitated seated cubii bike with L LE only for activity tolerance training for 5 min L1 with occasional AAROM required for full revoultions. Pt reports, this is tiring.'---07/28/24 Jackeline is seated in her w/c, doing well today, without pain or concerns to report today. She has questions about her f/u appt with Dr. Burger tomorrow. I contact DON to follow up with her on this. Nursing did reach out to Dr. Burger regarding DVT prophylaxis. Their office wants to leave ASA at daily dosing and will re-evaluate tomorrow. Walter catheter removed on 07/26 and she has been voiding since without concerns. VSS. Staff is without concerns today. Per therapy notes = Patient performed sit to stand transfers to pull up from parallel bars - moderate assist. Patient performed stand pivot transfers with a FWW requiring moderate assist with cueing for safety with pivots with NWB status on R LE. Rest breaks taken as needed due to fatigue---08/03/24N shanthi is doing well today, seated in her w/c, without concerns and reports her pain is well-controlled. She is happy to have been graduated to a walking boot at her F/U appt on 07/29. She does remain NWB to this extremity. She will f/u again in 6 weeks. VSS. Staff is without concerns today. Per therapy notes = practiced sit/stand to FWW from wc Min to CGA; pt encouraged to use FWW and pvt transfer vs use sit/stand lift. pt is able to maintain NWB status throughout.---08/05Nancy is seated in her w/c in her room, without concerns or reports of pain. She feels she is making good progress with therapy and is happy that her insurance extended her another week so she can continue to work on independent toileting among other things. VSS. Staff is without concerns at the moment. Per therapy notes = Pt AK bed mobility with use of bed cane from supine to EOB. Pt demoed good sitting balance while EOB. Pt Min A STS from EOB to 2ww, min/CGA SPT to w/c. Pt min/CGA for toilet transfer with cues for safe technique, max A clothing management, max hygiene with encouragement for pt to attempt. Pt ARAMBULA UB dressing including donning bra, mod A pull up and donning pants with field technical support consultant use and education on proper use. Pt max A donning sock this date. Pt ARAMBULA groom/hygiene while seated in w/c at sink.---08/09/24Nanc y is seated in her w/c in her room, reports she had a good weekend, is without concerns at the moment and reports her pain is well-managed. She does report that she wants to change her code status from Full to DNR as she has had time to think about it and does not want life-prolonging measures. Have notified nursing, who will give her a new POLST to fill-out. VSS. Staff is without concerns otherwise. Per therapy notes = Patient performed STS transfers at parallel bars requiring Joe. Standing dynamic balance - balloon taps, rings reach and stack (to improve weight shifting, midline crossing and reaching outside of JASS). NWB maintained well on R LE. Rest breaks taken as needed due to fatigue.---08/12/24N shanthi is seated in her w/c in her room, doing well today, without concerns overall. She notes some improvement in her LE edema as she has been better-elevating her limbs when at rest. VSS. Staff is without concerns at this time. Per therapy notes = Performed supine/sidelying exercises: SLR, SLA, clamshells, and ankle 4 way AROM with 20 reps. Performed transfer training to work on L LE strength, 10x sit to stands from eelvated plinth with eccentric control. Good compliance with weight bearing ---08/18/24Jackeline is seated in her w/c in her room, doing well today, without concerns or pain and is looking forward to discharging back home. She thinks she will do well with this transition and is without concerns regarding this plan. VSS. Staff is without concerns today. She will D/C home on 08/20 with [facility]. Selma Stevens, CAIL[place] [address] [facility], [place], [address], [place] - [facility] 08/19/2024 17:57:16 OBGyn Episode No OBEpisode recorded.
--- OUTSIDE RECORDS SUMMARY | 2025-01-05 16:50 | XMS_ITS | Clinical Summary ---
Author Organization [facility] Address [address], [address] [address] Phone Care Team Providers Care Cook Specialty Name Role Phone Carlos Alberto Clay MD Primary Care Provider [phone] Ernie Saba DO Unavailable [phone] Immunizations Immunization Administration Dates Next Due [...] Recently Relevant to Health Maintenance Insurance MEDICARE [facility] Care Teams Cook Specialty Relationship Specialty Start Date End Date Carlos Alberto Clay MD [address] [place] [address] [address] [place], [place] [id number] PCP - General Family Medicine 03/30/15 Ernie Saba DO [address] [place] [id number] Gastroenterology 03/30/15
--- OUTSIDE RECORDS SUMMARY | 2025-01-05 16:50 | XMS_ITS | Clinical Summary ---
Author Organization [facility] Address [address] [place] [address] Care Team Providers Care Shoe Treer Name Role Phone Sharri Clay MD Primary Care Provider [phone] Encounters Date Type Department Care Team Description 11/29/2024 12:15 PM CDT - 11/29/2024 11:59 PM CDT Hospital Encounter [facility] [place] [address] Mer Dang, EMERGENCY PLANNER Discharge Disposition: Home or Self Care (Routine [...] 2009 Dexa Scan (General) 2009 COVID-19 Vaccine ( season) 2024 12/03/2020, 05/08/2020, 04/14/2020 Influenza Adult (#1) 2024 12/17/2023, 01/16/2023, 03/19/2022, Additional history exists DTaP, Tdap and Td Vaccines (4 - Td or Tdap) 06/18/2028 06/18/2018, 06/18/2018, 12/15/2009 Hepatitis A Vaccines Aged Out 03/12/2002, 09/10/19 02 No longer eligible based on patient's age to complete this topic Zoster Vaccines Completed 10/19/2018, 05/2018, 08/16/2009 RSV Immunization or 60+ Years Completed [...] 3:30 PM Narrative 12/03/2024 3:34 PM CDT [address] [address] Examination: MRI LUMB SPINE WO CON, 11/29/2024 [...] Procedure Note Sang Mendoza MD - 12/03/[address] [address] Examination: MRI LUMB SPINE WO CON, 11/29/2024 [...] Mendoza MD, 12/03/2024 3:30 PM Mer Dang NP MRI Final Result from Last 3 Months Insurance [employer] Care Teams Shoe Treer Relationship Specialty Start Date End Date Sharri Clay MD [facility] [address] [place] [address] PCP - General FAMILY PRACTICE 11/26/24
[2025-01-05 18:52] LABS: Anion Gap 8 mmol/L (4-12); Blood Urea Nitrogen 18 mg/dL (7-17); Calcium 10.0 mg/dL (8.4-10.2); Carbon Dioxide 27 mmol/L (22-30); Chloride 102 mmol/L (98-107); Estimated Glomerular Filt Rate > 60; Glucose 108 mg/dL (65-110); Potassium 4.2 mmol/L (3.4-5.0); Sodium 137 mmol/L (137-145)
== END 2025-01-05 14:52 | disposition home or self-care (01) ==
LOC: ANHGOSHLAB 14:52
PROVIDERS: PCP Family Medicine; Visit Provider Family Medicine
DX: I10 Essential (primary) hypertension (principal)
CPT/HCPCS: 36415; 80048